=== PATIENT | female | born 1940 | race African-American/Black ===

== ENCOUNTER → 2017-02-11 | Outpatient (CLI) | payer MEDICARE ==
[2016-03-29 15:30] VITALS: BP 113/58
[~2017-02-11] MED LIST: Bisacodyl PO; Bisacodyl PR; CIPR500T94 PO; CYCL10TA2 PO; DOCU-109 PO; ERGO500027 PO; Fentanyl TD; HYDR-2758 PO; Hydrocodone/Acetaminophen PO; MAGN400O7 PO; MEDR2.5T28 PO; METH-37 PO; METR500T PO; ONDA4TAB10 PO; Oxycodone Hcl/Acetaminophen PO; PROC10TA57 PO; Polyethylene Glycol 3350 PO; [UNRECOGNIZED DRUG - CODE] PO
--- NOTE | 2017-02-11 17:12 | RAD ---
DATE: 02/11/2017 EXAM: DIGITAL SCREEN BILAT W/CAD HISTORY: Routine screening COMPARISON: 10/25/2013, 01/06/2016 This study was interpreted with the benefit of Computerized Aided Detection (CAD). The breast parenchyma is heterogeneously dense, which could reduce sensitivity of mammography. Breast parenchyma level C. FINDINGS: No new or enlarging breast densities are seen. There are scattered benign type calcifications in both breasts. There appears to be an old breast biopsy marker laterally in the right breast. No suspicious microcalcifications are seen. IMPRESSION: Stable mammograms without evidence of malignancy. BI-RADS CATEGORY: 2 BENIGN FINDING(S) RECOMMENDED FOLLOW-UP: 12M 12 MONTH FOLLOW-UP PQRS compliance statement: Patient information was entered into a reminder system with a target due date for the next mammogram. Mammography is a sensitive method for finding small breast cancers, but it does not detect them all and is not a substitute for careful clinical examination. A negative mammogram does not negate a clinically suspicious finding and should not result in delay in biopsying a clinically suspicious abnormality. "Our facility is accredited by the [employer] Mammography [employer]."
== END | disposition home or self-care (01) ==
LOC: MAMMO 13:16
PROVIDERS: ATTEND Obstetrics & Gynecology
DX: Z12.31 Encounter for screening mammogram for malignant neoplasm of breast (principal)
CPT/HCPCS: G0202; 77067

== ENCOUNTER → 2017-09-01 | Outpatient (CLI) | payer MEDICARE ==
[2017-09-01] MEDS: GADOBUTROL 7.5 MMOL/7.5 ML VIAL IV ×2 (12:30)
== END | disposition home or self-care (01) ==
LOC: MRI 10:47
DX: M48.061 Spinal stenosis, lumbar region without neurogenic claudication (principal); M51.36 Other intervertebral disc degeneration, lumbar region; G89.29 Other chronic pain; C90.00 Multiple myeloma not having achieved remission
CPT/HCPCS: 72158; A9585

== ENCOUNTER 2017-09-07 08:21 | Outpatient (CLI) | payer MEDICARE ==
[2017-09-07 08:44] LABS: ADD MAN DIFF? NO
[2017-09-07 08:53] LABS: BASO # 0.1 x10^3/uL (0.0-0.2); BASO % 1 % (0-3); EOS # 0.1 x10^3/uL (0.0-0.7); EOS % 2 % (0-3); HEMATOCRIT 38.9 % (36.0-47.0); HEMOGLOBIN 13.2 g/dL (12.0-15.5); LYMPH # 1.1 x10^3/uL (1.0-4.8); LYMPH % 20 % (24-48); MEAN CORPUSCULAR HEMOGLOBIN 33 pg (25-35); MEAN CORPUSCULAR HGB CONC 34 g/dL (31-37); MEAN CORPUSCULAR VOLUME 98 fL (79-100); MONO # 0.5 x10^3/uL (0.0-1.1); MONO % 10 % (0-9); NEUT # 3.6 x10^3uL (1.8-7.7); NEUT % 67 % (31-73); PLATELET COUNT 170 x10^3/uL (140-400); RED BLOOD COUNT 3.97 x10^6/uL (3.50-5.40); RED CELL DISTRIBUTION WIDTH 13.4 % (11.5-14.5); WHITE BLOOD COUNT 5.4 x10^3/uL (4.0-11.0)
[2017-09-07 09:03] LABS: PARTIAL THROMBOPLASTIN TIME 25 SEC (24-38); PROTHROMBIN TIME PATIENT 12.7 SEC (11.7-14.0)
[2017-09-07] MEDS ORDERED: LIDOCAINE 1%/EPI 1:100,000 20 ML VIAL. ×2 (09:18)
[2017-09-07] MEDS ORDERED: MIDAZOLAM HCL/PF 2 MG/2 ML VIAL. ×2 (09:45)
[2017-09-07] MEDS ORDERED: fentaNYL PF VIAL 100 MCG/2 ML VIAL ×2 (09:45)
[2017-09-07] MEDS ORDERED: IODIXANOL 320MG/ML 50ML VIAL. ×2 (10:08)
[2017-09-07] MEDS: IODIXANOL 320 MG/ML 100 ML VIAL. IART ×2 (10:15)
[2017-09-07] MEDS: fentaNYL PF VIAL 100 MCG/2 ML VIAL IV ×2 (10:23)
[2017-09-07] MEDS: LIDOCAINE 1%/EPI 1:100,000 20 ML VIAL. INJ ×2 (10:24)
[2017-09-07] MEDS: MIDAZOLAM HCL/PF 2 MG/2 ML VIAL. IV ×2 (10:24)
[2017-09-07] MEDS ORDERED: CONTRAST GIVEN MC ×2 (10:30)
[2017-09-07 10:52] LABS: % ATYL 1 % (0-0); % BANDS 7 % (0-9); % EOS 1 % (0-5); % MONOS 6 % (0-10); % SEGS 60 % (35-66); PLT ESTIMATE ADEQUATE (ADEQUATE)
[2017-09-07 11:01] LABS: % LYMPHS 25 % (24-48); OVALOCYTES FEW
== END 2017-09-07 13:00 | disposition home or self-care (01) ==
LOC: INTRAD 08:21
DX: C90.00 Multiple myeloma not having achieved remission (principal); F32.9 Major depressive disorder, single episode, unspecified; Z98.890 Other specified postprocedural states; Z79.01 Long term (current) use of anticoagulants; Z88.6 Allergy status to analgesic agent; Z79.82 Long term (current) use of aspirin
CPT/HCPCS: 36415; 36561; 76937; 77001; 85007; 85025; 85610; 85730; 99152; 99153; A4215; C1751; C1892; J0690; J1644; J2250; J3010; J3490

== ENCOUNTER 2018-01-08 11:04 | Emergency (ER) | payer MEDICARE ==
[2018-01-08 12:12] LABS: BILIRUBIN,URINE NEGATIVE (NEG); CLARITY,URINE CLEAR; COLOR,URINE YELLOW; GLUCOSE,URINE NEGATIVE (NEG); NITRITE,URINE NEGATIVE (NEG); PH,URINE 5.5; PROTEIN,URINE NEGATIVE (NEG-TRACE); UROBILINOGEN,URINE 0.2 mg/dL (0.2 mg/dL)
[2018-01-08] MEDS: IV NORMAL SALINE 1000ML BAG 1,000 ML IV (12:14)
[2018-01-08 12:19] LABS: ADD MAN DIFF? NO
[2018-01-08 12:25] LABS: BACTERIA,URINE 0 /HPF (0-FEW); RBC,URINE 0 /HPF (0-2); WBC,URINE 0 /HPF (0-4)
[2018-01-08 12:27] LABS: BASO % 1 % (0-3); EOS % 0 % (0-3); HEMATOCRIT 35.6 % (36.0-47.0); HEMOGLOBIN 12.1 g/dL (12.0-15.5); LYMPH # 0.7 x10^3/uL (1.0-4.8); LYMPH % 9 % (24-48); MEAN CORPUSCULAR HEMOGLOBIN 33 pg (25-35); MEAN CORPUSCULAR HGB CONC 34 g/dL (31-37); MEAN CORPUSCULAR VOLUME 97 fL (79-100); MONO % 12 % (0-9); NEUT # 6.6 x10^3uL (1.8-7.7); NEUT % 78 % (31-73); PLATELET COUNT 101 x10^3/uL (140-400); RED BLOOD COUNT 3.65 x10^6/uL (3.50-5.40); RED CELL DISTRIBUTION WIDTH 13.7 % (11.5-14.5); WHITE BLOOD COUNT 8.4 x10^3/uL (4.0-11.0)
[2018-01-08 12:34] LABS: ANION GAP 7 (6-14); BLOOD UREA NITROGEN 19 mg/dL (7-20); BUN/CREATININE RATIO 21 (6-20); CALCIUM 9.9 mg/dL (8.5-10.1); CARBON DIOXIDE 30 mmol/L (21-32); CHLORIDE 98 mmol/L (98-107); CREATININE 0.9 mg/dL (0.6-1.0); GFR 73.3; GLUCOSE 119 mg/dL (70-99); POTASSIUM 3.8 mmol/L (3.5-5.1); SODIUM 135 mmol/L (136-145)
[2018-01-08 12:40] LABS: ALBUMIN 3.3 g/dL (3.4-5.0); ALK PHOS 103 U/L (46-116); ALT (SGPT) 98 U/L (14-59); AST (SGOT) 53 U/L (15-37); TOTAL BILIRUBIN 0.4 mg/dL (0.2-1.0); TOTAL PROTEIN 6.5 g/dL (6.4-8.2)
[2018-01-08] MEDS ORDERED: HEPARIN PF 500 UNIT/5 ML DISP.SYRIN. IV (13:31)
== END 2018-01-08 13:44 | disposition home or self-care (01) ==
LOC: ER 11:04
DX: J40 Bronchitis, not specified as acute or chronic (principal); G89.29 Other chronic pain; Z88.5 Allergy status to narcotic agent; Z88.6 Allergy status to analgesic agent
CPT/HCPCS: 36415; 71046; 80053; 81001; 85025; 99285-25; J7030

== ENCOUNTER 2018-01-21 07:27 | Emergency (ER) | payer MEDICARE ==
[2018-01-21 08:09] LABS: ADD MAN DIFF? NO
[2018-01-21 08:12] LABS: BASO # 0.1 x10^3/uL (0.0-0.2); BASO % 1 % (0-3); EOS # 0.1 x10^3/uL (0.0-0.7); EOS % 3 % (0-3); HEMATOCRIT 34.6 % (36.0-47.0); LYMPH % 19 % (24-48); MEAN CORPUSCULAR HEMOGLOBIN 34 pg (25-35); MEAN CORPUSCULAR HGB CONC 35 g/dL (31-37); MEAN CORPUSCULAR VOLUME 96 fL (79-100); MONO # 0.6 x10^3/uL (0.0-1.1); MONO % 11 % (0-9); NEUT # 3.6 x10^3uL (1.8-7.7); NEUT % 67 % (31-73); PLATELET COUNT 198 x10^3/uL (140-400); RED BLOOD COUNT 3.59 x10^6/uL (3.50-5.40); RED CELL DISTRIBUTION WIDTH 14.6 % (11.5-14.5); WHITE BLOOD COUNT 5.4 x10^3/uL (4.0-11.0)
[2018-01-21] MEDS: fentaNYL PF VIAL 100 MCG/2 ML VIAL IM (08:19)
[2018-01-21 08:34] LABS: ANION GAP 6 (6-14); BLOOD UREA NITROGEN 11 mg/dL (7-20); BUN/CREATININE RATIO 12 (6-20); CALCIUM 9.4 mg/dL (8.5-10.1); CARBON DIOXIDE 30 mmol/L (21-32); CHLORIDE 104 mmol/L (98-107); CREATININE 0.9 mg/dL (0.6-1.0); GFR 73.3; GLUCOSE 117 mg/dL (70-99); POTASSIUM 3.6 mmol/L (3.5-5.1); SODIUM 140 mmol/L (136-145)
[2018-01-21 08:53] LABS: ALBUMIN 3.3 g/dL (3.4-5.0); ALBUMIN/GLOBULIN RATIO 1.1 (1.0-1.7); ALK PHOS 71 U/L (46-116); ALT (SGPT) 25 U/L (14-59); AST (SGOT) 21 U/L (15-37); MAGNESIUM 1.9 mg/dL (1.8-2.4); TOTAL BILIRUBIN 0.9 mg/dL (0.2-1.0); TOTAL PROTEIN 6.3 g/dL (6.4-8.2)
[2018-01-21 08:54] LABS: TROPONINI < 0.017 ng/mL (0.000-0.055)
== END 2018-01-21 09:47 | disposition home or self-care (01) ==
LOC: ER 07:27
DX: S43.401A Unspecified sprain of right shoulder joint, initial encounter (principal); C90.00 Multiple myeloma not having achieved remission; C88.9 Malignant immunoproliferative disease, unspecified; R03.0 Elevated blood-pressure reading, without diagnosis of hypertension; G89.29 Other chronic pain; Z88.6 Allergy status to analgesic agent; Z88.5 Allergy status to narcotic agent; X58.XXXA Exposure to other specified factors, initial encounter; Y93.89 Activity, other specified; Y92.89 Other specified places as the place of occurrence of the external cause; Y99.8 Other external cause status
CPT/HCPCS: 36415; 71045; 73030; 80053; 83735; 84484; 85025; 93005; 96372; 99285-25; J3010

== ENCOUNTER → 2018-03-21 | Outpatient (CLI) | payer MEDICARE ==
[2018-01-21 09:11] VITALS: BP 192/84
[~2018-03-21] MED LIST changes: +ACYC800T PO; +ALPR0.5T PO; +ASPI-482 PO; +AZIT250T PO; +CHOL4000 PO; +CYCL5TAB PO; +FENT1PAT89 TP; +GABA-585 PO; +HYDR-971 PO; +HYDR115S2 PO; +METH4TAB2 PO; +MULT1TAB52 PO; +POTA10TA12 PO
--- NOTE | 2018-03-22 09:21 | RAD ---
DATE: 03/21/2018 EXAM: MAMMO RUFINA SCREENING BILATERAL HISTORY: Routine screening COMPARISON: 02/11/2017 This study was interpreted with the benefit of Computerized Aided Detection (CAD). The breast parenchyma is heterogeneously dense, which could reduce sensitivity of mammography. Breast parenchyma level C. FINDINGS: 2-D and 3-D tomosynthesis imaging was performed in CC and MLO projections. An old breast biopsy marker is again noted laterally on the right. No new or enlarging breast densities are seen. There are scattered benign type calcifications. No suspicious microcalcifications have developed. IMPRESSION: Stable mammograms without evidence of malignancy. BI-RADS CATEGORY: 2 BENIGN FINDING(S) RECOMMENDED FOLLOW-UP: 12M 12 MONTH FOLLOW-UP PQRS compliance statement: Patient information was entered into a reminder system with a target due date for the next mammogram. Mammography is a sensitive method for finding small breast cancers, but it does not detect them all and is not a substitute for careful clinical examination. A negative mammogram does not negate a clinically suspicious finding and should not result in delay in biopsying a clinically suspicious abnormality. "Our facility is accredited by the [employer] Mammography Program."
== END | disposition home or self-care (01) ==
LOC: MAMMO 10:06
PROVIDERS: ATTEND Family Medicine
DX: Z12.31 Encounter for screening mammogram for malignant neoplasm of breast (principal); Z85.830 Personal history of malignant neoplasm of bone; Z90.49 Acquired absence of other specified parts of digestive tract; Z88.8 Allergy status to other drugs, medicaments and biological substances; Z88.5 Allergy status to narcotic agent; Z88.6 Allergy status to analgesic agent
CPT/HCPCS: 77063; 77067

== ENCOUNTER → 2018-04-15 | Outpatient (CLI) | payer MEDICARE ==
[2018-01-21 09:11] VITALS: BP 192/84
--- NOTE | 2018-04-15 15:26 | RAD ---
Metastatic skeletal survey, 04/15/2018: HISTORY: Multiple myeloma Multiple views of the bony skeleton were obtained with the following findings delineated: 1. A PA view of the chest demonstrates a Port-A-Cath extending to the level of the atrial caval junction. No fracture or destructive bony lesion is seen. The heart size is normal and the lungs are clear. 2. A lateral view of the skull reveals no lytic lesions. The sella turcica is at the upper limits of normal in size. 3. AP and lateral views of the cervical spine reveal moderate multilevel degenerative changes. No fracture or destructive bony lesion is seen. 4. AP and lateral views of the thoracic and lumbar spine demonstrate a mild thoracolumbar scoliosis. There is an old vertebral compression fracture at L1 with spurring and bony bridging anteriorly. This was also evident on old CT images from 03/29/2016. No additional fracture or destructive bony lesion is seen. 5. AP view of the pelvis reveals no fracture or destructive bony lesion. 6. AP views of both humeri and forearms reveal no fracture or destructive bony lesion. There are mild degenerative changes at the shoulders, more so on the right. 7. AP views of both femurs and lower legs reveal no fracture or destructive bony lesion. IMPRESSION: 1. Old L1 vertebral compression deformity. 2. Scattered degenerative changes in the spine. 3. No destructive bony lesions are identified. Electronically signed by: Marcelino Grady MD (04/15/2018 3:23 PM) [facility]
== END | disposition home or self-care (01) ==
LOC: RAD 08:54
PROVIDERS: ATTEND Internal Medicine Hematology & Oncology
DX: C90.00 Multiple myeloma not having achieved remission (principal); M43.8X6 Other specified deforming dorsopathies, lumbar region; M41.85 Other forms of scoliosis, thoracolumbar region; Z86.2 Personal history of diseases of the blood and blood-forming organs and certain disorders involving the immune mechanism; Z85.830 Personal history of malignant neoplasm of bone; Z90.49 Acquired absence of other specified parts of digestive tract; Z88.8 Allergy status to other drugs, medicaments and biological substances; Z88.5 Allergy status to narcotic agent; Z88.6 Allergy status to analgesic agent; Z82.49 Family history of ischemic heart disease and other diseases of the circulatory system
CPT/HCPCS: 77075

== ENCOUNTER 2018-04-16 13:49 | Emergency (ER) | payer MEDICARE ==
[~2018-04-16] VITALS: Ht 157.5 cm; Wt 81.2 kg
[2018-04-16] MEDS ORDERED: IV NORMAL SALINE 500ML BAG 500 ML IV SCH (14:00)
--- NOTE | 2018-04-16 14:08 | PHYS DOC ---
Past Medical History Past Medical History: Cancer Additional Past Medical Histor: chronic back pain, bone CA, multiple myloma Past Surgical History: Appendectomy, , Other Additional Past Surgical Histo: breast biopsy, rt chest port Additional Information: Nonsmoker Alcohol Use: None Drug Use: None Adult General Chief Complaint Chief Complaint: SYNCOPE HPI HPI Patient is a 77 year old female who brought in by EMS because of syncope. Patient states she was watching her grandson football game for 3 hours and felt hot and sweaty and walked up the hill to her son's car and felt dizzy and lightheadedness and then had a syncopal episode with loss of consciousness. EMS reported that she had about 3 minutes loss of consciousness without seizure activity and was alert and oriented at arrival of EMS. Patient complaining of feeling hot without chest pain, palpitation, focal neuro deficit, headache, nausea and vomiting. Review of Systems Review of Systems Constitutional: Denies fever or chills, reports generalized weakness Eyes: Denies change in visual acuity, redness, or eye pain [] HENT: Denies nasal congestion or sore throat [] Respiratory: Denies cough or shortness of breath [] Cardiovascular: No additional information not addressed in HPI [] GI: Denies abdominal pain, nausea, vomiting, bloody stools or diarrhea [] : Denies dysuria or hematuria [] Musculoskeletal: Denies back pain or joint pain [] Integument: Denies rash or skin lesions [] Neurologic: Denies headache, focal weakness or sensory changes [] Endocrine: Denies polyuria or polydipsia [] All other systems were reviewed and found to be within normal limits, except as documented in this note. Current Medications Current Medications Current Medications Medications (Trade) Dose Ordered Sig/Katrin Start Time Stop Time Status Last Admin Dose Admin Sodium Chloride 500 ml @ 500 mls/hr Q1H 04/16/18 14:00 04/16/18 14:59 DC 04/16/18 14:53 500 MLS/HR Allergies Allergies Allergies Coded Allergies Type Severity Reaction Last Updated Verified aspirin Allergy Intermediate 09/09/14 Yes codeine Allergy Intermediate 09/09/14 Yes Physical Exam Physical Exam Constitutional: Well developed, well nourished, mild distress, non-toxic appearance, blushing, temperature 98.2. [] HENT: Normocephalic, atraumatic, oropharynx dry, no oral exudates, nose normal. [] Eyes: PERRLA, EOMI, conjunctiva normal, no discharge. [] Neck: Normal range of motion, no tenderness, supple, no stridor. [] Cardiovascular:Heart rate regular rhythm, no murmur [] Lungs & Thorax: Bilateral breath sounds clear to auscultation [] Abdomen: Bowel sounds normal, soft, no tenderness, no masses, no pulsatile masses. [] Skin: Warm, dry, no erythema, no rash. [] Back: No tenderness, no CVA tenderness. [] Extremities: No tenderness, no cyanosis, no clubbing, ROM intact, no edema. [] Neurologic: Alert and oriented X 3, normal motor function, normal sensory function, no focal deficits noted. [] Psychologic: Affect normal, judgement normal, mood normal. [] Current Patient Data Vital Signs Vital Signs Date Time Temp Pulse Resp B/P (MAP) Pulse Ox O2 Delivery O2 Flow Rate FiO2 04/16/18 13:49 97.6 72 18 136/73 (94) 94 Room Air 97.6 Lab Values Laboratory Tests Test 04/16/18 14:50 White Blood Count 5.2 x10^3/uL (4.0-11.0) Red Blood Count 3.65 x10^6/uL (3.50-5.40) Hemoglobin 12.4 g/dL (12.0-15.5) Hematocrit 36.2 % (36.0-47.0) Mean Corpuscular Volume 99 fL (79-100) Mean Corpuscular Hemoglobin 34 pg (25-35) Mean Corpuscular Hemoglobin Concent 34 g/dL (31-37) Red Cell Distribution Width 14.1 % (11.5-14.5) Platelet Count 184 x10^3/uL (140-400) Neutrophils (%) (Auto) 70 % (31-73) Lymphocytes (%) (Auto) 16 % (24-48) L Monocytes (%) (Auto) 12 % (0-9) H Eosinophils (%) (Auto) 2 % (0-3) Basophils (%) (Auto) 1 % (0-3) Neutrophils # (Auto) 3.7 x10^3uL (1.8-7.7) Lymphocytes # (Auto) 0.8 x10^3/uL (1.0-4.8) L Monocytes # (Auto) 0.6 x10^3/uL (0.0-1.1) Eosinophils # (Auto) 0.1 x10^3/uL (0.0-0.7) Basophils # (Auto) 0.0 x10^3/uL (0.0-0.2) Platelet Estimate Pending Sodium Level 144 mmol/L (136-145) Potassium Level 4.0 mmol/L (3.5-5.1) Chloride Level 106 mmol/L (98-107) Carbon Dioxide Level 29 mmol/L (21-32) Anion Gap 9 (6-14) Blood Urea Nitrogen 11 mg/dL (7-20) Creatinine 1.1 mg/dL (0.6-1.0) H Estimated GFR (Cockcroft-Gault) 58.1 BUN/Creatinine Ratio 10 (6-20) Glucose Level 97 mg/dL (70-99) Calcium Level 9.4 mg/dL (8.5-10.1) Magnesium Level 2.3 mg/dL (1.8-2.4) Total Bilirubin 0.7 mg/dL (0.2-1.0) Aspartate Amino Transferase (AST) 24 U/L (15-37) Alanine Aminotransferase (ALT) 23 U/L (14-59) Alkaline Phosphatase 81 U/L (46-116) Creatine Kinase 34 U/L (26-192) Troponin I Quantitative < 0.017 ng/mL (0.000-0.055) Total Protein 6.2 g/dL (6.4-8.2) L Albumin 3.6 g/dL (3.4-5.0) Albumin/Globulin Ratio 1.4 (1.0-1.7) Laboratory Tests 04/16/18 14:50 Laboratory Tests 04/16/18 14:50 EKG EKG Present by me. EKG at 1413 showed normal sinus rhythm at rate of 74, leftward axis, no acute ST and T-wave abnormalities] Radiology/Procedures Radiology/Procedures [facility] [address] [place], [place] [id number] IMAGING REPORT Signed PATIENT: JUAN F GOLD ACCOUNT: [id number] : 1940 LOCATION: ER AGE: 77 SEX: F EXAM STATUS: PRE ER ORD. PHYSICIAN: RAGHAV SANTOYO MD REASON: syncope PROCEDURE: PORTABLE CHEST 1V Portable chest, 04/16/2018: HISTORY: Syncope Comparison is made to a study from 01/21/2018. A right Port-A-Cath extends into the superior vena cava. The heart size and pulmonary vascularity are normal. There is calcific plaquing of the aorta. No pulmonary infiltrate is seen. There is no evidence of pleural fluid. IMPRESSION: No acute cardiopulmonary abnormality is detected. CT of the head without contrast, 04/16/2018: HISTORY: Syncope There is mild cerebral atrophy. The ventricles are within normal limits in size. There is no shift of midline structures. There is no evidence of acute intracranial hemorrhage or mass effect. IMPRESSION: No acute intracranial abnormality is detected. Electronically signed by: Marcelino Grady MD (04/16/2018 2:38 PM) [facility] DICTATED and SIGNED BY: MARCELINO GRADY MD DATE: 04/16/18 1436 [facility] [address] [place] [address] IMAGING REPORT Signed PATIENT: JUAN F GOLD ACCOUNT: [id number] : 1940 LOCATION: ER AGE: 77 SEX: F EXAM STATUS: PRE ER ORD. PHYSICIAN: RAGHAV SANTOYO MD REASON: syncope PROCEDURE: CT HEAD WO CONTRAST Portable chest, 04/16/2018: HISTORY: Syncope Comparison is made to a study from 01/21/2018. A right Port-A-Cath extends into the superior vena cava. The heart size and pulmonary vascularity are normal. There is calcific plaquing of the aorta. No pulmonary infiltrate is seen. There is no evidence of pleural fluid. IMPRESSION: No acute cardiopulmonary abnormality is detected. CT of the head without contrast, 04/16/2018: HISTORY: Syncope There is mild cerebral atrophy. The ventricles are within normal limits in size. There is no shift of midline structures. There is no evidence of acute intracranial hemorrhage or mass effect. IMPRESSION: No acute intracranial abnormality is detected. Electronically signed by: Marcelino Grady MD (04/16/2018 2:38 PM) [facility] DICTATED and SIGNED BY: MARCELINO GRADY MD DATE: 04/16/18 1546 Course & Med Decision Making Course & Med Decision Making Pertinent Labs and Imaging studies reviewed. (See chart for details) Evaluation of patient in ER showed 77-year-old female patient with a syncopal episode after he takes pressure. Patient had unremarkable physical exam, CT head , labs and EKG. The patient tolerated oral intake and ambulated without problem. Plan discharge patient home with diagnose of syncope related to heat exposure. Patient was instructed to increase fluid intake and follow up with her primary care physician. Dragon Disclaimer Dragon Disclaimer This electronic medical record was generated, in whole or in part, using a voice recognition dictation system. Departure Departure Impression: Primary Impression: Heat exposure Additional Impression: Syncope Disposition: 01 HOME, SELF-CARE (at 1526) Referrals: ANTOINE JOHNSON MD (PCP) Patient Instructions: Heat Stress in the Elderly, Syncope Additional Instructions: Drink plenty of liquids Follow-up with your primary care physician in 3-5 days Return to ER if not getting better Problem Qualifiers RAGHAV SANTOYO MD Apr 16, 2018 14:08
--- NOTE | 2018-04-16 14:42 | RAD ---
Portable chest, 04/16/2018: HISTORY: Syncope Comparison is made to a study from 01/21/2018. A right Port-A-Cath extends into the superior vena cava. The heart size and pulmonary vascularity are normal. There is calcific plaquing of the aorta. No pulmonary infiltrate is seen. There is no evidence of pleural fluid. IMPRESSION: No acute cardiopulmonary abnormality is detected. CT of the head without contrast, 04/16/2018: HISTORY: Syncope There is mild cerebral atrophy. The ventricles are within normal limits in size. There is no shift of midline structures. There is no evidence of acute intracranial hemorrhage or mass effect. IMPRESSION: No acute intracranial abnormality is detected. Electronically signed by: Marcelino Grady MD (04/16/2018 2:38 PM) [facility]
[2018-04-16 15:05] LABS: BASO % 1 % (0-3); EOS # 0.1 x10^3/uL (0.0-0.7); EOS % 2 % (0-3); HEMATOCRIT 36.2 % (36.0-47.0); HEMOGLOBIN 12.4 g/dL (12.0-15.5); LYMPH # 0.8 x10^3/uL (1.0-4.8); LYMPH % 16 % (24-48); MEAN CORPUSCULAR HEMOGLOBIN 34 pg (25-35); MEAN CORPUSCULAR HGB CONC 34 g/dL (31-37); MEAN CORPUSCULAR VOLUME 99 fL (79-100); MONO # 0.6 x10^3/uL (0.0-1.1); MONO % 12 % (0-9); NEUT # 3.7 x10^3uL (1.8-7.7); NEUT % 70 % (31-73); PLATELET COUNT 184 x10^3/uL (140-400); RED BLOOD COUNT 3.65 x10^6/uL (3.50-5.40); RED CELL DISTRIBUTION WIDTH 14.1 % (11.5-14.5); WHITE BLOOD COUNT 5.2 x10^3/uL (4.0-11.0)
[2018-04-16 15:12] LABS: CALCIUM 9.4 mg/dL (8.5-10.1); CREATININE 1.1 mg/dL (0.6-1.0); GFR 58.1
[2018-04-16 15:19] LABS: ALBUMIN 3.6 g/dL (3.4-5.0); ALBUMIN/GLOBULIN RATIO 1.4 (1.0-1.7); MAGNESIUM 2.3 mg/dL (1.8-2.4); TOTAL BILIRUBIN 0.7 mg/dL (0.2-1.0); TOTAL PROTEIN 6.2 g/dL (6.4-8.2)
[2018-04-16 16:00] VITALS: BP 144/77
[2018-04-16 16:13] LABS: % BANDS 1 % (0-9); % EOS 1 % (0-5); % LYMPHS 19 % (24-48); % MONOS 14 % (0-10); % SEGS 65 % (35-66); PLT ESTIMATE ADEQUATE (ADEQUATE)
--- NOTE | 2018-04-16 16:16 | EKG ---
[facility] [address] [place] [address] Test Date: 2018-04-16 Test Time: 14:13:26 Pat Name: JUAN F GOLD Department: Room: Gender: F [employer]: : 1940 Requested By: RAGHAV SANTOYO Order Number: [id number] Reading MD: Nirav Ware Measurements Intervals [place] Rate: 74 P: 49 [place]: 162 QRS: 0 QRSD: 78 T: 20 QT: 368 QTc: 413 Interpretive Statements SINUS RHYTHM LEFTWARD AXIS Electronically Signed On 04-18-2018 11:16:36 CDT by Nirav Ware
== END 2018-04-16 16:07 | disposition home or self-care (01) ==
LOC: ER 13:49
DX: R55 Syncope and collapse (principal); Z88.5 Allergy status to narcotic agent; Z88.6 Allergy status to analgesic agent; X30.XXXA Exposure to excessive natural heat, initial encounter; Y93.61 Activity, american tackle football; Y92.89 Other specified places as the place of occurrence of the external cause; Y99.8 Other external cause status
CPT/HCPCS: 36415; 70450; 71045; 80053; 82550; 83735; 84484; 85007; 85025; 93005; 96360; 99285; J7040

== ENCOUNTER → 2018-08-30 | Outpatient (CLI) | payer MEDICARE ==
[~2018-08-30] MED LIST changes: +AMOX1TAB11 PO; -CHOL4000 PO; +CHOL40003 PO; +DOXY100T PO; +FENT1PAT90 TD; +GADOBUTROL 7.5 MMOL/7.5 ML VIAL IV ONE; -HYDR-2758 PO; +HYDR-2761 PO; +HYDR-3164 PO; -HYDR-971 PO; +MONT10TA49 PO; +OSEL30CA PO; +SULF1TAB24 PO; +daratumumab IV
--- NOTE | 2018-08-30 13:20 | RAD ---
EXAM: MRI right shoulder With and without IV contrast DATE: 08/30/2018 10:30 AM COMPARISON: None INDICATION: RIGHT SHOULDER PAIN X 2 MONTHS, NKI, HISTORY OF MULTIPLE MYELOMA TECHNIQUE: Multiplanar, multisequence MRI of the right shoulder was performed before and after the administration of IV contrast. FINDINGS: Region of air replacement within the proximal right humeral shaft measures approximately 8.1 cm in length with associated T2/STIR hyperintense signal suspicious for myelomatous infiltration. No definite marrow edema/replacement within the scapula or distal clavicle. Subacromial mild AC joint degenerative change. Bilateral downsloping of the distal acromion. Type III acromion. No os acromiale. Subacromial subdeltoid bursal distention likely bursitis. No glenohumeral joint effusion. Partial-thickness regular sided tear of the distal supraspinatus tendon approximately 1 cm from the attachment involving approximately 30% tendon thickness, measuring about 8 mm in AP dimension. This is in a background of moderate to significant infraspinatus increased signal, tendinosis. Evaluation for labral tear limited on this arthrographic study. Intra-articular long head biceps tendon is seen within the bicipital groove. Intra-articular long head biceps tendon is grossly normal in signal and morphology. No evidence for fracture or AVN. No definite full-thickness cartilage defect is identified on this survey evaluation. IMPRESSION: 1. T2/STIR and T1 marrow signal changes within the proximal right humerus suspicious for myelomatous infiltration. 2. Partial-thickness reticular sided tear of the distal supraspinatus approximately 1 cm from the attachment measuring approximately 8 mm in AP dimension. 3. Subacromial-subdeltoid bursal edema with enhancement, bursitis. 4. Mild AC joint degenerative changes are seen. No definite myelomatous involvement of the scapula, distal right clavicle or acromion. Electronically signed by: Shad Talley MD (08/30/2018 1:15 PM) [id number]
== END | disposition home or self-care (01) ==
LOC: EDBD → MRI 08-29 09:42
PROVIDERS: ATTEND Internal Medicine Hematology & Oncology
DX: M75.101 Unspecified rotator cuff tear or rupture of right shoulder, not specified as traumatic (principal); M19.011 Primary osteoarthritis, right shoulder; M75.51 Bursitis of right shoulder; R60.0 Localized edema; Z85.830 Personal history of malignant neoplasm of bone
CPT/HCPCS: 73223; A9585

== ENCOUNTER → 2018-09-05 | Outpatient (CLI) | payer MEDICARE ==
[~2018-09-05] MED LIST changes: -AMOX1TAB11 PO; -DOXY100T PO; -FENT1PAT90 TD; -GADOBUTROL 7.5 MMOL/7.5 ML VIAL IV ONE; -MONT10TA49 PO; -OSEL30CA PO; -SULF1TAB24 PO; -daratumumab IV
--- NOTE | 2018-09-05 14:22 | RAD ---
Examination: 2 views of the right shoulder HISTORY: History of chronic right shoulder pain COMPARISON: 01/21/2018 FINDINGS: The humerus head is within the glenoid. Mild degenerative changes identified in the acromioclavicular joint and the glenohumeral joint. Right-sided Port-A-Cath is identified. IMPRESSION: Mild degenerative changes acromioclavicular joint and the glenohumeral joint. Electronically signed by: Denny Solano MD (09/05/2018 2:17 PM) [place] [id number]
== END | disposition home or self-care (01) ==
LOC: RAD 11:51
PROVIDERS: ATTEND Internal Medicine Hematology & Oncology
DX: C90.00 Multiple myeloma not having achieved remission (principal); M19.011 Primary osteoarthritis, right shoulder; G89.29 Other chronic pain
CPT/HCPCS: 73030

== ENCOUNTER 2018-10-23 14:15 | Inpatient (IN) | payer MEDICARE ==
[~2018-10-23] VITALS: Ht 157.5 cm; Wt 80.7 kg
[2018-10-23 14:48] LABS: BILIRUBIN,URINE NEGATIVE (NEG); CLARITY,URINE CLEAR; COLOR,URINE YELLOW; NITRITE,URINE NEGATIVE (NEG); PROTEIN,URINE NEGATIVE (NEG-TRACE); UROBILINOGEN,URINE 0.2 mg/dL (0.2 mg/dL)
[2018-10-23 14:58] LABS: BASO % 0 % (0-3); EOS % 0 % (0-3); HEMATOCRIT 37.2 % (36.0-47.0); HEMOGLOBIN 12.4 g/dL (12.0-15.5); LYMPH # 0.5 x10^3/uL (1.0-4.8); LYMPH % 7 % (24-48); MEAN CORPUSCULAR HEMOGLOBIN 32 pg (25-35); MEAN CORPUSCULAR HGB CONC 33 g/dL (31-37); MEAN CORPUSCULAR VOLUME 96 fL (79-100); MONO # 0.8 x10^3/uL (0.0-1.1); MONO % 13 % (0-9); NEUT # 4.9 x10^3uL (1.8-7.7); NEUT % 79 % (31-73); PLATELET COUNT 205 x10^3/uL (140-400); RED BLOOD COUNT 3.87 x10^6/uL (3.50-5.40); RED CELL DISTRIBUTION WIDTH 13.7 % (11.5-14.5); WHITE BLOOD COUNT 6.2 x10^3/uL (4.0-11.0)
[2018-10-23 15:00] LABS: AMORPHOUS SEDIMENT,UR PRESENT /HPF; BACTERIA,URINE 0 /HPF (0-FEW); RBC,URINE 0 /HPF (0-2); SQUAMOUS EPITHELIAL CELL,UR FEW /LPF; WBC,URINE RARE /HPF (0-4)
--- NOTE | 2018-10-23 15:07 | RAD ---
CHEST AP ONLY Clinical Indication: COUGH Comparison: 04/16/2018 portable chest x-ray exam. Findings: Right central venous infusion port is present. The cardiomediastinal silhouette is normal. Small subtle opacity at the right lateral upper lung field level is questioned this is just lateral to the central venous catheter at the clavicular level. There is no pneumothorax. No pleural effusion is appreciated. No acute bone abnormality. IMPRESSION: Opacity involving the right lateral upper lung field level. This is new compared to prior exam and possibly of infiltrate is questioned. Interval follow-up two-view chest x-ray exam to assess resolution is recommended. Electronically signed by: Edwin Rod MD (10/23/2018 3:05 PM) [facility]
--- NOTE | 2018-10-23 15:07 | PHYS DOC ---
Past Medical History Past Medical History: Cancer Additional Past Medical Histor: chronic back pain, bone CA, multiple myloma Past Surgical History: Appendectomy, , Other Additional Past Surgical Histo: breast biopsy, rt chest port Alcohol Use: None Drug Use: None Adult General Chief Complaint Chief Complaint: COUGH HPI HPI 77-year-old female presenting the emergency room today with cough congestion and nausea. Her nausea started yesterday. She took 8 mg of Zofran twice earlier today which mildly improved his symptoms. Her cough has been nonproductive. She takes chemotherapy once a month for multiple myeloma. She denies having any fevers. She took her temperature earlier this afternoon which was 99F. Review of systems is negative for chest pain shortness breath abdominal pain. Positive for nausea without vomiting. All other review of systems is negative unless otherwise noted in history of present illness. ED course: 77-year-old female presenting to the emergency department today with nausea and cough with congestion. Chest x-ray shows probable pneumonia. Otherwise white blood cell count within normal limits. Chemistry panel is unremarkable. Urinalysis is not suggestive of infection. Well give IV abx and admit. Review of Systems Review of Systems SEE ABOVE. Current Medications Current Medications Current Medications Medications (Trade) Dose Ordered Sig/Katrin Start Time Stop Time Status Last Admin Dose Admin Metoclopramide HCl (Reglan Vial) 10 mg 1X ONCE 10/23/18 15:15 10/23/18 15:16 DC 10/23/18 15:42 10 MG Sodium Chloride 1,000 ml @ 1,000 mls/hr 1X ONCE 10/23/18 15:15 10/23/18 16:14 10/23/18 15:42 1,000 MLS/HR Allergies Allergies Allergies Coded Allergies Type Severity Reaction Last Updated Verified aspirin Allergy Intermediate 09/09/14 Yes codeine Allergy Intermediate 09/09/14 Yes Physical Exam Physical Exam SEE ABOVE Constitutional: Well developed, well nourished, no acute distress, non-toxic appearance. [] HENT: Normocephalic, atraumatic, bilateral external ears normal, oropharynx moist, no oral exudates, nose normal. [] Eyes: PERRLA, EOMI, conjunctiva normal, no discharge. [] Neck: Normal range of motion, no tenderness, supple, no stridor. [] Cardiovascular:Heart rate regular rhythm, no murmur [] Lungs & Thorax: Coarse lung sounds on the left more than the right. Abdomen: Bowel sounds normal, soft, no tenderness, no masses, no pulsatile masses. [] Skin: Warm, dry, no erythema, no rash. [] Back: No tenderness, no CVA tenderness. [] Extremities: No tenderness, no cyanosis, no clubbing, ROM intact, no edema. [] Neurologic: Alert and oriented X 3, normal motor function, normal sensory function, no focal deficits noted. [] Psychologic: Affect normal, judgement normal, mood normal. [] Current Patient Data Vital Signs Vital Signs Date Time Temp Pulse Resp B/P (MAP) Pulse Ox O2 Delivery O2 Flow Rate FiO2 10/23/18 15:42 68 22 160/71 (100) 95 Nasal Cannula 2.0 10/23/18 14:20 99.0 99.0 Lab Values Laboratory Tests Test 10/23/18 14:20 10/23/18 14:47 10/23/18 15:10 Urine Collection Type Unknown Urine Color Yellow Urine Clarity Clear Urine pH 7.0 Urine Specific [place] 1.020 Urine Protein Negative mg/dL (NEG-TRACE) Urine Glucose (UA) Negative mg/dL (NEG) Urine Ketones (Stick) Trace mg/dL (NEG) Urine Blood Negative (NEG) Urine Nitrite Negative (NEG) Urine Bilirubin Negative (NEG) Urine Urobilinogen Dipstick 0.2 mg/dL (0.2 mg/dL) Urine Leukocyte Esterase Negative (NEG) Urine RBC 0 /HPF (0-2) Urine WBC Rare /HPF (0-4) Urine Squamous Epithelial Cells Few /LPF Urine Amorphous Sediment Present /HPF Urine Bacteria 0 /HPF (0-FEW) White Blood Count 6.2 x10^3/uL (4.0-11.0) Red Blood Count 3.87 x10^6/uL (3.50-5.40) Hemoglobin 12.4 g/dL (12.0-15.5) Hematocrit 37.2 % (36.0-47.0) Mean Corpuscular Volume 96 fL (79-100) Mean Corpuscular Hemoglobin 32 pg (25-35) Mean Corpuscular Hemoglobin Concent 33 g/dL (31-37) Red Cell Distribution Width 13.7 % (11.5-14.5) Platelet Count 205 x10^3/uL (140-400) Neutrophils (%) (Auto) 79 % (31-73) H Lymphocytes (%) (Auto) 7 % (24-48) L Monocytes (%) (Auto) 13 % (0-9) H Eosinophils (%) (Auto) 0 % (0-3) Basophils (%) (Auto) 0 % (0-3) Neutrophils # (Auto) 4.9 x10^3uL (1.8-7.7) Lymphocytes # (Auto) 0.5 x10^3/uL (1.0-4.8) L Monocytes # (Auto) 0.8 x10^3/uL (0.0-1.1) Eosinophils # (Auto) 0.0 x10^3/uL (0.0-0.7) Basophils # (Auto) 0.0 x10^3/uL (0.0-0.2) Sodium Level 134 mmol/L (136-145) L Potassium Level 3.7 mmol/L (3.5-5.1) Chloride Level 96 mmol/L (98-107) L Carbon Dioxide Level 29 mmol/L (21-32) Anion Gap 9 (6-14) Blood Urea Nitrogen 10 mg/dL (7-20) Creatinine 0.9 mg/dL (0.6-1.0) Estimated GFR (Cockcroft-Gault) 73.3 BUN/Creatinine Ratio 11 (6-20) Glucose Level 114 mg/dL (70-99) H Calcium Level 9.0 mg/dL (8.5-10.1) Total Bilirubin 0.6 mg/dL (0.2-1.0) Aspartate Amino Transferase (AST) 20 U/L (15-37) Alanine Aminotransferase (ALT) 21 U/L (14-59) Alkaline Phosphatase 88 U/L (46-116) Total Protein 7.1 g/dL (6.4-8.2) Albumin 3.2 g/dL (3.4-5.0) L Albumin/Globulin Ratio 0.8 (1.0-1.7) L Laboratory Tests 10/23/18 14:47 Laboratory Tests 10/23/18 15:10 EKG EKG [] Radiology/Procedures Radiology/Procedures [] Course & Med Decision Making Course & Med Decision Making Pertinent Labs and Imaging studies reviewed. (See chart for details) [] Dragon Disclaimer Dragon Disclaimer This electronic medical record was generated, in whole or in part, using a voice recognition dictation system. Departure Departure Impression: Primary Impression: Cough Additional Impression: PNA (pneumonia) Disposition: ADMITTED INPATIENT Condition: STABLE Referrals: ANTOINE JOHNSON MD (PCP) Problem Qualifiers MARIO CONTE MD Oct 23, 2018 15:07
[2018-10-23] MEDS ORDERED: METOCLOPRAMIDE HCL 10 MG/2 ML VIAL. IV ONE (15:15)
[2018-10-23] MEDS ORDERED: IV NORMAL SALINE 1000ML BAG 1,000 ML IV ONE ×2 (15:15→20:30)
[2018-10-23 15:26] LABS: CREATININE 0.9 mg/dL (0.6-1.0); GFR 73.3; POTASSIUM 3.7 mmol/L (3.5-5.1)
[2018-10-23 15:32] LABS: ALBUMIN 3.2 g/dL (3.4-5.0); ALBUMIN/GLOBULIN RATIO 0.8 (1.0-1.7); TOTAL BILIRUBIN 0.6 mg/dL (0.2-1.0); TOTAL PROTEIN 7.1 g/dL (6.4-8.2)
[2018-10-23] MEDS ORDERED: IV NORMAL SALINE 1000ML BAG 1,000 ML IV SCH (15:58)
[2018-10-23] MEDS ORDERED: cefTRIAXone IV Push 1 GM VIAL. IVP ONE (16:00)
[2018-10-23] MEDS ORDERED: AZITHRMYCN 500MG IVPB FOR OMNI 250 ML IV ONE ×2 (16:00→20:30)
[2018-10-23] MEDS ORDERED: MORPHINE SULFATE 2 MG/ML VIAL. IV PRN (16:00)
[2018-10-23] MEDS ORDERED: ONDANSETRON PF 4 MG/2 ML VIAL. IV PRN (16:00)
[2018-10-23 16:31] LABS: INFLUENZA A PATIENT POSITIVE (NEGATIVE); INFLUENZA B PATIENT NEGATIVE (NEGATIVE)
[2018-10-23] MEDS ORDERED: OSELTAMIVIR 75 MG CAPSULE PO ONE (16:45)
--- NOTE | 2018-10-23 17:12 | PDOC1 ---
History and Physical Date of Admission Date of Admission DATE: 10/23/18 TIME: 17:10 Identification/Chief Complaint Chief Complaint SEEN IN ER emergency room with cough congestion and nausea. Her nausea started yesterday. She took 8 mg of Zofran twice earlier today which mildly improved symptoms. Her cough has been nonproductive. She takes chemotherapy once a month for multiple myeloma. She denies having any fevers. She took her temperature earlier this afternoon which was 99F FLU POS SCREEN IN ER Past Medical History Past Medical History Past Medical History Past Medical History: Cancer //multiple myeloma Additional Past Medical Histor: chronic back pain, bone CA, multiple myloma Past Surgical History: Appendectomy, , Other Additional Past Surgical Histo: breast biopsy, rt chest port Alcohol Use: None Drug Use: None nonsmoker no etoh use family hx HTN Cardiovascular: No pertinent hx Pulmonary: No pertinent hx GI: No pertinent hx Heme/Onc: Other (multiple myeloma) Hepatobiliary: No pertinent hx Psych: No pertinent hx Musculoskeletal: low back pain Rheumatologic: No pertinent hx Infectious disease: No pertinent hx Renal/: No pertinent hx Endocrine: No pertinent hx Dermatology: No pertinent hx Past Surgical History Past Surgical History: No pertinent history Family History Family History: No Significant, Hypertension Social History Smoke: No ALCOHOL: none Drugs: None Current Problem List Problem List Problems Medical Problems: (1) Cough Status: Acute (2) PNA (pneumonia) Status: Acute Current Medications Current Medications Current Medications Metoclopramide HCl (Reglan Vial) 10 mg 1X ONCE IV Last administered on at 15:42; Start 10/23/18 at 15:15; Stop 10/23/18 at 15:16; Status DC Sodium Chloride 1,000 ml @ 1,000 mls/hr 1X ONCE IV Last administered on at 15:42; Start 10/23/18 at 15:15; Stop 10/23/18 at 16:14; Status DC Ondansetron HCl (Zofran) 4 mg PRN Q8HRS PRN IV NAUSEA/VOMITING; Start 10/23/18 at 16:00; Stop 10/24/18 at 15:59 Morphine Sulfate (Morphine Sulfate) 2 mg PRN Q2HR PRN IV PAIN; Start 10/23/18 at 16:00; Stop 10/24/18 at 15:59 Sodium Chloride 1,000 ml @ 100 mls/hr Q10H IV ; Start 10/23/18 at 15:58; Stop 10/23/18 at 19:57 Azithromycin 250 ml @ 250 mls/hr 1X ONCE IV Last administered on 10/23/18at 16 :00; Start 10/23/18 at 16:00; Stop 10/23/18 at 16:59; Status DC Ceftriaxone Sodium (Rocephin) 1 gm 1X ONCE IVP Last administered on 10/23/18at 16:17; Start 10/23/18 at 16:00; Stop 10/23/18 at 16:08; Status DC Oseltamivir Phosphate (Tamiflu) 75 mg 1X ONCE PO Last administered on at 16:58; Start 10/23/18 at 16:45; Stop 10/23/18 at 16:46; Status DC Active Scripts Active Medrol (Methylprednisolone) 4 Mg Tab.ds.pk 1 Pkg PO UD Cyclobenzaprine Hcl 5 Mg Tablet 1 Tab PO TID Zithromax (Azithromycin) 250 Mg Tablet 1 Pkg PO UD Tussionex Pennkinetic Susp (Hydrocodone/Chlorphen P-Stirex) 115 Ml Julianne.er.12h 5 Ml PO BID PRN Compazine (Prochlorperazine Maleate) 10 Mg Tablet 10 Mg PO PRN Q6HRS PRN Zofran Odt (Ondansetron) 4 Mg Tab.rapdis 8 Mg PO TIDAC Reported Potassium Chloride 10 Meq Tab.sr.24h 10 Meq PO DAILY Multivitamins (Multivitamin) 1 Each Tablet 1 Tab PO DAILY Baldwin 5-325 Tablet (Acetaminophen/Hydrocodone Bitart) 1 Each Tablet 1 Tab PO PRN Q4HRS PRN Gabapentin 100 Mg Capsule 100 Mg PO TID DURAGESIC 12mcg/hr (Fentanyl) 1 Each Patch.td72 1 Patch TP Q3DAYS Colace (Docusate Sodium) 100 Mg Capsule 1 Cap PO DAILY Aspir 81 (Aspirin) 81 Mg Tablet.dr 1 Tab PO DAILY Xanax (Alprazolam) 0.5 Mg Tablet 0.5 Mg PO PRN Q6HRS PRN Acyclovir 800 Mg Tablet 1 Tab PO BID Vitamin D3 (Cholecalciferol (Vitamin D3)) 4,000 Unit Capsule 4,000 Unit PO DAILY Allergies Allergies: Coded Allergies: aspirin (Verified Allergy, Intermediate, 09/09/14) codeine (Verified Allergy, Intermediate, 09/09/14) Physical Exam Physical Exam Physical Exam Physical Exam Constitutional: Well developed, well nourished, MILD acute distress, non-toxic appearance. [] HENT: Normocephalic, atraumatic, bilateral external ears normal, oropharynx moist, no oral exudates, nose normal. [] Eyes: PERRLA, EOMI, conjunctiva normal, no discharge. [] Neck: Normal range of motion, no tenderness, supple, no stridor. [] Cardiovascular:Heart rate regular rhythm, no murmur [] Lungs & Thorax: Coarse lung sounds on the left more than the right. Abdomen: Bowel sounds normal, soft, no tenderness, no masses, no pulsatile masses. [] Skin: Warm, dry, no erythema, no rash. [] Back: No tenderness, no CVA tenderness. [] Extremities: No tenderness, no cyanosis, no clubbing, ROM intact, no edema. [] Neurologic: Alert and oriented X 3, normal motor function, normal sensory function, no focal deficits noted. [] Psychologic: Affect normal, judgement normal, mood normal. [] General: Alert, Oriented X3, Cooperative, mild distress HEENT: Atraumatic, EOMI Heart: S1S2, RRR Breasts: Not examined Abdomen: Normal bowel sounds, Soft Rectal Exam: not examined Extremities: No clubbing, No cyanosis, No edema Skin: No significant lesion Neuro: Normal speech, Cranial nerves 3-12 NL Psych/Mental Status: Mental status NL, Mood NL Vitals Vitals Vital Signs Date Time Temp Pulse Resp B/P (MAP) Pulse Ox O2 Delivery O2 Flow Rate FiO2 10/23/18 15:42 68 22 160/71 (100) 95 Nasal Cannula 2.0 10/23/18 14:20 99.0 99.0 Labs Labs Laboratory Tests Test 10/23/18 14:20 10/23/18 14:47 10/23/18 15:10 10/23/18 15:58 Urine Collection Type Unknown Urine Color Yellow Urine Clarity Clear Urine pH 7.0 Urine Specific [place] 1.020 Urine Protein Negative mg/dL (NEG-TRACE) Urine Glucose (UA) Negative mg/dL (NEG) Urine Ketones (Stick) Trace mg/dL (NEG) Urine Blood Negative (NEG) Urine Nitrite Negative (NEG) Urine Bilirubin Negative (NEG) Urine Urobilinogen Dipstick 0.2 mg/dL (0.2 mg/dL) Urine Leukocyte Esterase Negative (NEG) Urine RBC 0 /HPF (0-2) Urine WBC Rare /HPF (0-4) Urine Squamous Epithelial Cells Few /LPF Urine Amorphous Sediment Present /HPF Urine Bacteria 0 /HPF (0-FEW) White Blood Count 6.2 x10^3/uL (4.0-11.0) Red Blood Count 3.87 x10^6/uL (3.50-5.40) Hemoglobin 12.4 g/dL (12.0-15.5) Hematocrit 37.2 % (36.0-47.0) Mean Corpuscular Volume 96 fL (79-100) Mean Corpuscular Hemoglobin 32 pg (25-35) Mean Corpuscular Hemoglobin Concent 33 g/dL (31-37) Red Cell Distribution Width 13.7 % (11.5-14.5) Platelet Count 205 x10^3/uL (140-400) Neutrophils (%) (Auto) 79 % (31-73) Lymphocytes (%) (Auto) 7 % (24-48) Monocytes (%) (Auto) 13 % (0-9) Eosinophils (%) (Auto) 0 % (0-3) Basophils (%) (Auto) 0 % (0-3) Neutrophils # (Auto) 4.9 x10^3uL (1.8-7.7) Lymphocytes # (Auto) 0.5 x10^3/uL (1.0-4.8) Monocytes # (Auto) 0.8 x10^3/uL (0.0-1.1) Eosinophils # (Auto) 0.0 x10^3/uL (0.0-0.7) Basophils # (Auto) 0.0 x10^3/uL (0.0-0.2) Sodium Level 134 mmol/L (136-145) Potassium Level 3.7 mmol/L (3.5-5.1) Chloride Level 96 mmol/L (98-107) Carbon Dioxide Level 29 mmol/L (21-32) Anion Gap 9 (6-14) Blood Urea Nitrogen 10 mg/dL (7-20) Creatinine 0.9 mg/dL (0.6-1.0) Estimated GFR (Cockcroft-Gault) 73.3 BUN/Creatinine Ratio 11 (6-20) Glucose Level 114 mg/dL (70-99) Calcium Level 9.0 mg/dL (8.5-10.1) Total Bilirubin 0.6 mg/dL (0.2-1.0) Aspartate Amino Transf (AST/SGOT) 20 U/L (15-37) Alanine Aminotransferase (ALT/SGPT) 21 U/L (14-59) Alkaline Phosphatase 88 U/L (46-116) Total Protein 7.1 g/dL (6.4-8.2) Albumin 3.2 g/dL (3.4-5.0) Albumin/Globulin Ratio 0.8 (1.0-1.7) Influenza Type A Antigen Positive (NEGATIVE) Influenza Type B Antigen Negative (NEGATIVE) Laboratory Tests Test 10/23/18 14:20 10/23/18 14:47 10/23/18 15:10 10/23/18 15:58 Urine Collection Type Unknown Urine Color Yellow Urine Clarity Clear Urine pH 7.0 Urine Specific [place] 1.020 Urine Protein Negative mg/dL (NEG-TRACE) Urine Glucose (UA) Negative mg/dL (NEG) Urine Ketones (Stick) Trace mg/dL (NEG) Urine Blood Negative (NEG) Urine Nitrite Negative (NEG) Urine Bilirubin Negative (NEG) Urine Urobilinogen Dipstick 0.2 mg/dL (0.2 mg/dL) Urine Leukocyte Esterase Negative (NEG) Urine RBC 0 /HPF (0-2) Urine WBC Rare /HPF (0-4) Urine Squamous Epithelial Cells Few /LPF Urine Amorphous Sediment Present /HPF Urine Bacteria 0 /HPF (0-FEW) White Blood Count 6.2 x10^3/uL (4.0-11.0) Red Blood Count 3.87 x10^6/uL (3.50-5.40) Hemoglobin 12.4 g/dL (12.0-15.5) Hematocrit 37.2 % (36.0-47.0) Mean Corpuscular Volume 96 fL (79-100) Mean Corpuscular Hemoglobin 32 pg (25-35) Mean Corpuscular Hemoglobin Concent 33 g/dL (31-37) Red Cell Distribution Width 13.7 % (11.5-14.5) Platelet Count 205 x10^3/uL (140-400) Neutrophils (%) (Auto) 79 % (31-73) Lymphocytes (%) (Auto) 7 % (24-48) Monocytes (%) (Auto) 13 % (0-9) Eosinophils (%) (Auto) 0 % (0-3) Basophils (%) (Auto) 0 % (0-3) Neutrophils # (Auto) 4.9 x10^3uL (1.8-7.7) Lymphocytes # (Auto) 0.5 x10^3/uL (1.0-4.8) Monocytes # (Auto) 0.8 x10^3/uL (0.0-1.1) Eosinophils # (Auto) 0.0 x10^3/uL (0.0-0.7) Basophils # (Auto) 0.0 x10^3/uL (0.0-0.2) Sodium Level 134 mmol/L (136-145) Potassium Level 3.7 mmol/L (3.5-5.1) Chloride Level 96 mmol/L (98-107) Carbon Dioxide Level 29 mmol/L (21-32) Anion Gap 9 (6-14) Blood Urea Nitrogen 10 mg/dL (7-20) Creatinine 0.9 mg/dL (0.6-1.0) Estimated GFR (Cockcroft-Gault) 73.3 BUN/Creatinine Ratio 11 (6-20) Glucose Level 114 mg/dL (70-99) Calcium Level 9.0 mg/dL (8.5-10.1) Total Bilirubin 0.6 mg/dL (0.2-1.0) Aspartate Amino Transf (AST/SGOT) 20 U/L (15-37) Alanine Aminotransferase (ALT/SGPT) 21 U/L (14-59) Alkaline Phosphatase 88 U/L (46-116) Total Protein 7.1 g/dL (6.4-8.2) Albumin 3.2 g/dL (3.4-5.0) Albumin/Globulin Ratio 0.8 (1.0-1.7) Influenza Type A Antigen Positive (NEGATIVE) Influenza Type B Antigen Negative (NEGATIVE) Images Images REASON: cough PROCEDURE: CHEST AP ONLY CHEST AP ONLY Clinical Indication: COUGH Comparison: 04/16/2018 portable chest x-ray exam. Findings: Right central venous infusion port is present. The cardiomediastinal silhouette is normal. Small subtle opacity at the right lateral upper lung field level is questioned this is just lateral to the central venous catheter at the clavicular level. There is no pneumothorax. No pleural effusion is appreciated. No acute bone abnormality. IMPRESSION: Opacity involving the right lateral upper lung field level. This is new compared to prior exam and possibly of infiltrate is questioned. Interval follow-up two-view chest x-ray exam to assess resolution is recommended. Electronically signed by: Nurys Lu MD (10/23/2018 3:05 PM) [facility] DICTATED and SIGNED BY: NURYS LU MD DATE: 10/23/18 1505 VTE Prophylaxis Ordered VTE Prophylaxis Devices: Yes VTE Pharmacological Prophylaxi: Yes Assessment/Plan Assessment/Plan impression right lateral upper lung field level. This is A new infiltrate possible gram pos or gram neg ACUTE Influenza A Acute hypoxic resp failure Multiple myeloma ON CHEMO Immuno-suppressed obesity plan admit tamiflu 75 mg po bid iv rocephin, zithromax ID CONSULT DVT PROPHYLAXIS HOME MEDS O2 support blood and urine cult iv vanc duonebs qid iv fluid support at high risk for viral sepsis per my chart review Past Medical History Past Medical History: Cancer Additional Past Medical Histor: chronic back pain, bone CA, multiple myloma Past Surgical History: Appendectomy, , Other Additional Past Surgical Histo: breast biopsy, rt chest port Alcohol Use: None Drug Use: None DEVIKA CALHOUN MD Oct 23, 2018 17:11
[2018-10-23] MEDS ORDERED: ALPRAZolam 0.5 MG TABLET PO PRN (17:30)
[2018-10-23] MEDS ORDERED: HYDROCODONE PO PRN (17:30)
[2018-10-23] MEDS ORDERED: CHLORPHEN P STIREX PO PRN (17:30)
[2018-10-23] MEDS ORDERED: HYDROcodone/APAP 5/325MG 1 TAB TABLET PO PRN (17:30)
[2018-10-23] MEDS ORDERED: PROCHLORPERAZINE 5 MG TABLET. PO PRN (17:45)
[2018-10-23 19:00] VITALS: BP 148/75
[2018-10-23] MEDS: GABAPENTIN 100 MG CAPSULE. PO SCH (20:58)
[2018-10-23] MEDS: CYCLOBENZAPRINE 10 MG TABLET. PO SCH (20:58)
[2018-10-23] MEDS: OSELTAMIVIR 30 MG CAPSULE PO SCH (20:58)
[2018-10-23] MEDS: ACYCLOVIR 200 MG CAPSULE. PO SCH (20:59)
[2018-10-23] MEDS ORDERED: VANCOMYCIN 2 GM in IV NORMAL SALINE 500ML BAG 500 ML IV ONE (21:00)
[2018-10-23] MEDS: ENOXAPARIN 40 MG/0.4 ML SYRINGE. SQ SCH (21:00)
[2018-10-23] MEDS: VANCOMYCIN PER PHARMACY MC PRN ×2 (21:10→21:12)
[2018-10-23 22:57] VITALS: BP 136/65
[2018-10-24] MEDS ORDERED: ACETAMINOPHEN 325 MG TABLET. PO PRN (02:00)
[2018-10-24 03:00] VITALS: BP 148/68
[2018-10-24 03:54] LABS: BASO % 1 % (0-3); EOS % 0 % (0-3); HEMATOCRIT 32.1 % (36.0-47.0); HEMOGLOBIN 10.6 g/dL (12.0-15.5); LYMPH # 0.5 x10^3/uL (1.0-4.8); LYMPH % 13 % (24-48); MEAN CORPUSCULAR HEMOGLOBIN 32 pg (25-35); MEAN CORPUSCULAR HGB CONC 33 g/dL (31-37); MEAN CORPUSCULAR VOLUME 97 fL (79-100); MONO # 0.6 x10^3/uL (0.0-1.1); MONO % 17 % (0-9); NEUT # 2.5 x10^3uL (1.8-7.7); NEUT % 69 % (31-73); PLATELET COUNT 159 x10^3/uL (140-400); RED BLOOD COUNT 3.29 x10^6/uL (3.50-5.40); RED CELL DISTRIBUTION WIDTH 13.7 % (11.5-14.5); WHITE BLOOD COUNT 3.6 x10^3/uL (4.0-11.0)
[2018-10-24 04:19] LABS: CALCIUM 8.1 mg/dL (8.5-10.1); CREATININE 0.9 mg/dL (0.6-1.0); GFR 73.3; POTASSIUM 3.4 mmol/L (3.5-5.1)
[2018-10-24 07:00] VITALS: BP 104/62
[2018-10-24] MEDS: ONDANSETRON ODT 4 MG TAB.RAPDIS. PO SCH ×4 (07:36→16:30)
[2018-10-24] MEDS ORDERED: POTASSIUM CHLORIDE 10 MEQ TABLET.ER. PO SCH (09:00)
[2018-10-24] MEDS ORDERED: fentaNYL 12MCG/HR PATCH 1 PATCH PATCH.TD72 TD SCH (09:00)
[2018-10-24] MEDS: GABAPENTIN 100 MG CAPSULE. PO SCH ×3 (09:14→19:48)
[2018-10-24] MEDS: MULTIVITAMIN with MINERAL TABLET. PO SCH (09:14)
[2018-10-24] MEDS: CHOLECALCIFEROL (VITAMIN D3) 1,000 UNIT TABLET PO SCH (09:14)
[2018-10-24] MEDS: DOCUSATE SODIUM 100 MG CAPSULE. PO SCH (09:15)
[2018-10-24] MEDS: OSELTAMIVIR 30 MG CAPSULE PO SCH ×2 (09:15→19:49)
[2018-10-24] MEDS: ASPIRIN ENTERIC COATED 81 MG TABLET.DR. PO SCH (09:15)
[2018-10-24] MEDS ORDERED: diphenhydrAMINE HCL 25 MG CAPSULE PO PRN (09:15)
[2018-10-24] MEDS ORDERED: guaiFENesin DM 200MG/20MG 10 ML SYRUP PO PRN (09:15)
[2018-10-24] MEDS: CYCLOBENZAPRINE 10 MG TABLET. PO SCH ×3 (09:15→19:49)
[2018-10-24] MEDS: ACYCLOVIR 200 MG CAPSULE. PO SCH ×2 (09:16→19:48)
[2018-10-24] MEDS ORDERED: ONDANSETRON PF 4 MG/2 ML VIAL. IV PRN (09:30)
[2018-10-24] MEDS: CETIRIZINE HCL 10 MG TABLET. PO SCH (09:52)
[2018-10-24] MEDS: FLUTICASONE 50MCG/NASAL SPRAY 16GM BOTTLE. NS SCH (09:53)
[2018-10-24] MEDS ORDERED: POTASSIUM CHLORIDE 20 MEQ TABLET.ER. PO ONE (10:00)
[2018-10-24 11:00] VITALS: BP 134/76
--- NOTE | 2018-10-24 11:26 | PDOC ---
PROGRESS NOTES Chief Complaint Chief Complaint PNA in an immunocompromised Sepsis possible gram-positive gram-negative PNA Multiple myeloma on chemotherapy 3 years-gets chemotherapy twice a month Influenza A Hypoxic respiratory failure in the background of above Obesity, BMI 33 sees MIld hypokalemia 3.4 Neutropenia 3.6 Thrombocytopenia mild with no bleeding Fevers Sepsis Herpes? On Zovirax History of Present Illness History of Present Illness Weak but no worse Cough, no increased S OA Still some low-grade temperatures She requests Dr. Jernigan to follow her while she is hospitalized K3.4, so-so by mouth WBC 3.6, platelets 159 Chief complaint for cough congestion may be SOA and fevers. She is on Rocephin vancomycin and Tamiflu Zovirax as home meds? Plan: consult pulmo and heme onc I did continue vanc, Rocephin and Tamiflu Add some PTOT Other supportive meds like DuoNeb's Zofran cough medicine, H1 antagonist Droplet isol Vitals Vitals Vital Signs Date Time Temp Pulse Resp B/P (MAP) Pulse Ox O2 Delivery O2 Flow Rate FiO2 10/24/18 11:00 96.7 67 18 134/76 (95) 93 Room Air 96.7 10/23/18 22:57 2.0 Physical Exam General: Alert, Oriented X3, Cooperative, mild distress Heart: Regular rate, Normal S1, Normal S2 Lungs: Clear, Other (symmetric chest expansion, diminished, no wheezing) Abdomen: Normal bowel sounds, Soft Extremities: No clubbing, No cyanosis, No edema Skin: No rashes, No breakdown, No significant lesion Labs LABS Laboratory Tests Test 10/23/18 14:20 10/23/18 14:47 10/23/18 15:10 10/23/18 15:58 Urine Collection Type Unknown Urine Color Yellow Urine Clarity Clear Urine pH 7.0 Urine Specific [place] 1.020 Urine Protein Negative mg/dL (NEG-TRACE) Urine Glucose (UA) Negative mg/dL (NEG) Urine Ketones (Stick) Trace mg/dL (NEG) Urine Blood Negative (NEG) Urine Nitrite Negative (NEG) Urine Bilirubin Negative (NEG) Urine Urobilinogen Dipstick 0.2 mg/dL (0.2 mg/dL) Urine Leukocyte Esterase Negative (NEG) Urine RBC 0 /HPF (0-2) Urine WBC Rare /HPF (0-4) Urine Squamous Epithelial Cells Few /LPF Urine Amorphous Sediment Present /HPF Urine Bacteria 0 /HPF (0-FEW) White Blood Count 6.2 x10^3/uL (4.0-11.0) Red Blood Count 3.87 x10^6/uL (3.50-5.40) Hemoglobin 12.4 g/dL (12.0-15.5) Hematocrit 37.2 % (36.0-47.0) Mean Corpuscular Volume 96 fL (79-100) Mean Corpuscular Hemoglobin 32 pg (25-35) Mean Corpuscular Hemoglobin Concent 33 g/dL (31-37) Red Cell Distribution Width 13.7 % (11.5-14.5) Platelet Count 205 x10^3/uL (140-400) Neutrophils (%) (Auto) 79 % (31-73) Lymphocytes (%) (Auto) 7 % (24-48) Monocytes (%) (Auto) 13 % (0-9) Eosinophils (%) (Auto) 0 % (0-3) Basophils (%) (Auto) 0 % (0-3) Neutrophils # (Auto) 4.9 x10^3uL (1.8-7.7) Lymphocytes # (Auto) 0.5 x10^3/uL (1.0-4.8) Monocytes # (Auto) 0.8 x10^3/uL (0.0-1.1) Eosinophils # (Auto) 0.0 x10^3/uL (0.0-0.7) Basophils # (Auto) 0.0 x10^3/uL (0.0-0.2) Sodium Level 134 mmol/L (136-145) Potassium Level 3.7 mmol/L (3.5-5.1) Chloride Level 96 mmol/L (98-107) Carbon Dioxide Level 29 mmol/L (21-32) Anion Gap 9 (6-14) Blood Urea Nitrogen 10 mg/dL (7-20) Creatinine 0.9 mg/dL (0.6-1.0) Estimated GFR (Cockcroft-Gault) 73.3 BUN/Creatinine Ratio 11 (6-20) Glucose Level 114 mg/dL (70-99) Calcium Level 9.0 mg/dL (8.5-10.1) Total Bilirubin 0.6 mg/dL (0.2-1.0) Aspartate Amino Transf (AST/SGOT) 20 U/L (15-37) Alanine Aminotransferase (ALT/SGPT) 21 U/L (14-59) Alkaline Phosphatase 88 U/L (46-116) Total Protein 7.1 g/dL (6.4-8.2) Albumin 3.2 g/dL (3.4-5.0) Albumin/Globulin Ratio 0.8 (1.0-1.7) Influenza Type A Antigen Positive (NEGATIVE) Influenza Type B Antigen Negative (NEGATIVE) Test 10/24/18 03:20 White Blood Count 3.6 x10^3/uL (4.0-11.0) Red Blood Count 3.29 x10^6/uL (3.50-5.40) Hemoglobin 10.6 g/dL (12.0-15.5) Hematocrit 32.1 % (36.0-47.0) Mean Corpuscular Volume 97 fL (79-100) Mean Corpuscular Hemoglobin 32 pg (25-35) Mean Corpuscular Hemoglobin Concent 33 g/dL (31-37) Red Cell Distribution Width 13.7 % (11.5-14.5) Platelet Count 159 x10^3/uL (140-400) Neutrophils (%) (Auto) 69 % (31-73) Lymphocytes (%) (Auto) 13 % (24-48) Monocytes (%) (Auto) 17 % (0-9) Eosinophils (%) (Auto) 0 % (0-3) Basophils (%) (Auto) 1 % (0-3) Neutrophils # (Auto) 2.5 x10^3uL (1.8-7.7) Lymphocytes # (Auto) 0.5 x10^3/uL (1.0-4.8) Monocytes # (Auto) 0.6 x10^3/uL (0.0-1.1) Eosinophils # (Auto) 0.0 x10^3/uL (0.0-0.7) Basophils # (Auto) 0.0 x10^3/uL (0.0-0.2) Sodium Level 137 mmol/L (136-145) Potassium Level 3.4 mmol/L (3.5-5.1) Chloride Level 101 mmol/L (98-107) Carbon Dioxide Level 28 mmol/L (21-32) Anion Gap 8 (6-14) Blood Urea Nitrogen 8 mg/dL (7-20) Creatinine 0.9 mg/dL (0.6-1.0) Estimated GFR (Cockcroft-Gault) 73.3 Glucose Level 89 mg/dL (70-99) Calcium Level 8.1 mg/dL (8.5-10.1) Procalcitonin < 0.10 ng/mL (0.00-0.10) Review of Systems Review of Systems Weak, cough, congestion, mild SOA, the rest of ROS 14 point negative Assessment and Plan Assessmemt and Plan Problems Medical Problems: (1) Cough Status: Acute (2) PNA (pneumonia) Status: Acute Comment Review of Relevant I have reviewed the following items astrid (where applicable) has been applied. Labs Laboratory Tests Test 10/23/18 14:20 10/23/18 14:47 10/23/18 15:10 10/23/18 15:58 Urine Collection Type Unknown Urine Color Yellow Urine Clarity Clear Urine pH 7.0 Urine Specific [place] 1.020 Urine Protein Negative mg/dL (NEG-TRACE) Urine Glucose (UA) Negative mg/dL (NEG) Urine Ketones (Stick) Trace mg/dL (NEG) Urine Blood Negative (NEG) Urine Nitrite Negative (NEG) Urine Bilirubin Negative (NEG) Urine Urobilinogen Dipstick 0.2 mg/dL (0.2 mg/dL) Urine Leukocyte Esterase Negative (NEG) Urine RBC 0 /HPF (0-2) Urine WBC Rare /HPF (0-4) Urine Squamous Epithelial Cells Few /LPF Urine Amorphous Sediment Present /HPF Urine Bacteria 0 /HPF (0-FEW) White Blood Count 6.2 x10^3/uL (4.0-11.0) Red Blood Count 3.87 x10^6/uL (3.50-5.40) Hemoglobin 12.4 g/dL (12.0-15.5) Hematocrit 37.2 % (36.0-47.0) Mean Corpuscular Volume 96 fL (79-100) Mean Corpuscular Hemoglobin 32 pg (25-35) Mean Corpuscular Hemoglobin Concent 33 g/dL (31-37) Red Cell Distribution Width 13.7 % (11.5-14.5) Platelet Count 205 x10^3/uL (140-400) Neutrophils (%) (Auto) 79 % (31-73) Lymphocytes (%) (Auto) 7 % (24-48) Monocytes (%) (Auto) 13 % (0-9) Eosinophils (%) (Auto) 0 % (0-3) Basophils (%) (Auto) 0 % (0-3) Neutrophils # (Auto) 4.9 x10^3uL (1.8-7.7) Lymphocytes # (Auto) 0.5 x10^3/uL (1.0-4.8) Monocytes # (Auto) 0.8 x10^3/uL (0.0-1.1) Eosinophils # (Auto) 0.0 x10^3/uL (0.0-0.7) Basophils # (Auto) 0.0 x10^3/uL (0.0-0.2) Sodium Level 134 mmol/L (136-145) Potassium Level 3.7 mmol/L (3.5-5.1) Chloride Level 96 mmol/L (98-107) Carbon Dioxide Level 29 mmol/L (21-32) Anion Gap 9 (6-14) Blood Urea Nitrogen 10 mg/dL (7-20) Creatinine 0.9 mg/dL (0.6-1.0) Estimated GFR (Cockcroft-Gault) 73.3 BUN/Creatinine Ratio 11 (6-20) Glucose Level 114 mg/dL (70-99) Calcium Level 9.0 mg/dL (8.5-10.1) Total Bilirubin 0.6 mg/dL (0.2-1.0) Aspartate Amino Transf (AST/SGOT) 20 U/L (15-37) Alanine Aminotransferase (ALT/SGPT) 21 U/L (14-59) Alkaline Phosphatase 88 U/L (46-116) Total Protein 7.1 g/dL (6.4-8.2) Albumin 3.2 g/dL (3.4-5.0) Albumin/Globulin Ratio 0.8 (1.0-1.7) Influenza Type A Antigen Positive (NEGATIVE) Influenza Type B Antigen Negative (NEGATIVE) Test 10/24/18 03:20 White Blood Count 3.6 x10^3/uL (4.0-11.0) Red Blood Count 3.29 x10^6/uL (3.50-5.40) Hemoglobin 10.6 g/dL (12.0-15.5) Hematocrit 32.1 % (36.0-47.0) Mean Corpuscular Volume 97 fL (79-100) Mean Corpuscular Hemoglobin 32 pg (25-35) Mean Corpuscular Hemoglobin Concent 33 g/dL (31-37) Red Cell Distribution Width 13.7 % (11.5-14.5) Platelet Count 159 x10^3/uL (140-400) Neutrophils (%) (Auto) 69 % (31-73) Lymphocytes (%) (Auto) 13 % (24-48) Monocytes (%) (Auto) 17 % (0-9) Eosinophils (%) (Auto) 0 % (0-3) Basophils (%) (Auto) 1 % (0-3) Neutrophils # (Auto) 2.5 x10^3uL (1.8-7.7) Lymphocytes # (Auto) 0.5 x10^3/uL (1.0-4.8) Monocytes # (Auto) 0.6 x10^3/uL (0.0-1.1) Eosinophils # (Auto) 0.0 x10^3/uL (0.0-0.7) Basophils # (Auto) 0.0 x10^3/uL (0.0-0.2) Sodium Level 137 mmol/L (136-145) Potassium Level 3.4 mmol/L (3.5-5.1) Chloride Level 101 mmol/L (98-107) Carbon Dioxide Level 28 mmol/L (21-32) Anion Gap 8 (6-14) Blood Urea Nitrogen 8 mg/dL (7-20) Creatinine 0.9 mg/dL (0.6-1.0) Estimated GFR (Cockcroft-Gault) 73.3 Glucose Level 89 mg/dL (70-99) Calcium Level 8.1 mg/dL (8.5-10.1) Procalcitonin < 0.10 ng/mL (0.00-0.10) Laboratory Tests Test 10/23/18 14:20 10/23/18 14:47 10/23/18 15:10 10/23/18 15:58 Urine Collection Type Unknown Urine Color Yellow Urine Clarity Clear Urine pH 7.0 Urine Specific [place] 1.020 Urine Protein Negative mg/dL (NEG-TRACE) Urine Glucose (UA) Negative mg/dL (NEG) Urine Ketones (Stick) Trace mg/dL (NEG) Urine Blood Negative (NEG) Urine Nitrite Negative (NEG) Urine Bilirubin Negative (NEG) Urine Urobilinogen Dipstick 0.2 mg/dL (0.2 mg/dL) Urine Leukocyte Esterase Negative (NEG) Urine RBC 0 /HPF (0-2) Urine WBC Rare /HPF (0-4) Urine Squamous Epithelial Cells Few /LPF Urine Amorphous Sediment Present /HPF Urine Bacteria 0 /HPF (0-FEW) White Blood Count 6.2 x10^3/uL (4.0-11.0) Red Blood Count 3.87 x10^6/uL (3.50-5.40) Hemoglobin 12.4 g/dL (12.0-15.5) Hematocrit 37.2 % (36.0-47.0) Mean Corpuscular Volume 96 fL (79-100) Mean Corpuscular Hemoglobin 32 pg (25-35) Mean Corpuscular Hemoglobin Concent 33 g/dL (31-37) Red Cell Distribution Width 13.7 % (11.5-14.5) Platelet Count 205 x10^3/uL (140-400) Neutrophils (%) (Auto) 79 % (31-73) Lymphocytes (%) (Auto) 7 % (24-48) Monocytes (%) (Auto) 13 % (0-9) Eosinophils (%) (Auto) 0 % (0-3) Basophils (%) (Auto) 0 % (0-3) Neutrophils # (Auto) 4.9 x10^3uL (1.8-7.7) Lymphocytes # (Auto) 0.5 x10^3/uL (1.0-4.8) Monocytes # (Auto) 0.8 x10^3/uL (0.0-1.1) Eosinophils # (Auto) 0.0 x10^3/uL (0.0-0.7) Basophils # (Auto) 0.0 x10^3/uL (0.0-0.2) Sodium Level 134 mmol/L (136-145) Potassium Level 3.7 mmol/L (3.5-5.1) Chloride Level 96 mmol/L (98-107) Carbon Dioxide Level 29 mmol/L (21-32) Anion Gap 9 (6-14) Blood Urea Nitrogen 10 mg/dL (7-20) Creatinine 0.9 mg/dL (0.6-1.0) Estimated GFR (Cockcroft-Gault) 73.3 BUN/Creatinine Ratio 11 (6-20) Glucose Level 114 mg/dL (70-99) Calcium Level 9.0 mg/dL (8.5-10.1) Total Bilirubin 0.6 mg/dL (0.2-1.0) Aspartate Amino Transf (AST/SGOT) 20 U/L (15-37) Alanine Aminotransferase (ALT/SGPT) 21 U/L (14-59) Alkaline Phosphatase 88 U/L (46-116) Total Protein 7.1 g/dL (6.4-8.2) Albumin 3.2 g/dL (3.4-5.0) Albumin/Globulin Ratio 0.8 (1.0-1.7) Influenza Type A Antigen Positive (NEGATIVE) Influenza Type B Antigen Negative (NEGATIVE) Test 10/24/18 03:20 White Blood Count 3.6 x10^3/uL (4.0-11.0) Red Blood Count 3.29 x10^6/uL (3.50-5.40) Hemoglobin 10.6 g/dL (12.0-15.5) Hematocrit 32.1 % (36.0-47.0) Mean Corpuscular Volume 97 fL (79-100) Mean Corpuscular Hemoglobin 32 pg (25-35) Mean Corpuscular Hemoglobin Concent 33 g/dL (31-37) Red Cell Distribution Width 13.7 % (11.5-14.5) Platelet Count 159 x10^3/uL (140-400) Neutrophils (%) (Auto) 69 % (31-73) Lymphocytes (%) (Auto) 13 % (24-48) Monocytes (%) (Auto) 17 % (0-9) Eosinophils (%) (Auto) 0 % (0-3) Basophils (%) (Auto) 1 % (0-3) Neutrophils # (Auto) 2.5 x10^3uL (1.8-7.7) Lymphocytes # (Auto) 0.5 x10^3/uL (1.0-4.8) Monocytes # (Auto) 0.6 x10^3/uL (0.0-1.1) Eosinophils # (Auto) 0.0 x10^3/uL (0.0-0.7) Basophils # (Auto) 0.0 x10^3/uL (0.0-0.2) Sodium Level 137 mmol/L (136-145) Potassium Level 3.4 mmol/L (3.5-5.1) Chloride Level 101 mmol/L (98-107) Carbon Dioxide Level 28 mmol/L (21-32) Anion Gap 8 (6-14) Blood Urea Nitrogen 8 mg/dL (7-20) Creatinine 0.9 mg/dL (0.6-1.0) Estimated GFR (Cockcroft-Gault) 73.3 Glucose Level 89 mg/dL (70-99) Calcium Level 8.1 mg/dL (8.5-10.1) Procalcitonin < 0.10 ng/mL (0.00-0.10) Medications Current Medications Metoclopramide HCl (Reglan Vial) 10 mg 1X ONCE IV Last administered on at 15:42; Start 10/23/18 at 15:15; Stop 10/23/18 at 15:16; Status DC Sodium Chloride 1,000 ml @ 1,000 mls/hr 1X ONCE IV Last administered on at 15:42; Start 10/23/18 at 15:15; Stop 10/23/18 at 16:14; Status DC Ondansetron HCl (Zofran) 4 mg PRN Q8HRS PRN IV NAUSEA/VOMITING; Start 10/23/18 at 16:00; Stop 10/24/18 at 09:20; Status DC Morphine Sulfate (Morphine Sulfate) 2 mg PRN Q2HR PRN IV PAIN; Start 10/23/18 at 16:00; Stop 10/24/18 at 15:59 Sodium Chloride 1,000 ml @ 100 mls/hr Q10H IV Last administered on 10/23/18at 17:47; Start 10/23/18 at 15:58; Stop 10/23/18 at 19:57; Status DC Azithromycin 250 ml @ 250 mls/hr 1X ONCE IV Last administered on 10/23/18at 16 :00; Start 10/23/18 at 16:00; Stop 10/23/18 at 16:59; Status DC Ceftriaxone Sodium (Rocephin) 1 gm 1X ONCE IVP Last administered on 10/23/18 16:17; Start 10/23/18 at 16:00; Stop 10/23/18 at 16:08; Status DC Oseltamivir Phosphate (Tamiflu) 75 mg 1X ONCE PO Last administered on 16:58; Start 10/23/18 at 16:45; Stop 10/23/18 at 16:46; Status DC Oseltamivir Phosphate (Tamiflu) 30 mg BID PO Last administered on 10/24/18 09: 15; Start 10/23/18 at 21:00; Stop 10/28/18 at 20:59 Alprazolam (Xanax) 0.5 mg PRN Q6HRS PRN PO ANXIETY / AGITATION Last administered on 10/23/18 18:20; Start 10/23/18 at 17:30 Aspirin (Ecotrin) 81 mg DAILY PO Last administered on 10/24/18 09:15; Start at 09:00 Docusate Sodium (Colace) 100 mg DAILY PO Last administered on 10/24/18 09:15; Start 10/24/18 at 09:00 Fentanyl (Duragesic 12mcg/ Hr Patch) 1 patch Q3DAYS TD Last administered on 09:16; Start 10/24/18 at 09:00 Gabapentin (Neurontin) 100 mg TID PO Last administered on 10/24/18 09:14; Start 10/23/18 at 21:00 Acetaminophen/ Hydrocodone Bitart (Lortab 5/325) 1 tab PRN Q4HRS PRN PO PAIN; Start 10/23/18 at 17:30 Ondansetron HCl (Zofran Odt) 8 mg TIDAC PO Last administered on 10/24/18 11:21 ; Start 10/24/18 at 07:30 Potassium Chloride (Klor-Con) 10 meq DAILY PO Last administered on 10/24/18 09 :15; Start 10/24/18 at 09:00 Acyclovir (Zovirax) 800 mg BID PO Last administered on 10/24/18 09:16; Start 10/23/18 at 21:00 Vitamin D (Vitamin D3) 4,000 unit DAILY PO Last administered on 10/24/18at 09:14 ; Start 10/24/18 at 09:00 Cyclobenzaprine HCl (Flexeril) 5 mg TID PO Last administered on 10/24/18at 09:15 ; Start 10/23/18 at 21:00 Non-Formulary Medication (Hydrocodone/ Chlorphen P-Stirex (Tussionex Pennkinetic Susp)) 5 ml BID PRN PO COUGH; Start 10/23/18 at 17:30; Stop at 17:52; Status DC Multivitamins (Thera M Plus) 1 tab DAILY PO Last administered on 10/24/18at 09: 14; Start 10/24/18 at 09:00 Prochlorperazine Maleate (Compazine) 10 mg PRN Q6HRS PRN PO NAUSEA/VOMITING; Start 10/23/18 at 17:45 Enoxaparin Sodium (Lovenox 40mg Syringe) 40 mg Q24H SQ Last administered on at 21:00; Start 10/23/18 at 21:00 Ceftriaxone Sodium (Rocephin) 1 gm Q24H IVP ; Start 10/24/18 at 17:00 Azithromycin 250 ml @ 250 mls/hr 1X ONCE IV ; Start 10/23/18 at 20:30; Stop at 21:29; Status UNV Vancomycin HCl (Vanco Per Pharmacy) 1 each PRN DAILY PRN MC SEE COMMENTS Last administered on 10/23/18at 21:12; Start 10/23/18 at 20:30 Sodium Chloride 1,000 ml @ 75 mls/hr 1X ONCE IV Last administered on at 20:59; Start 10/23/18 at 20:30; Stop 10/24/18 at 09:49; Status DC Azithromycin 500 mg/Sodium Chloride 250 ml @ 250 mls/hr 1X ONCE IV ; Start at 17:00; Stop 10/24/18 at 17:59 Vancomycin HCl 2 gm/Sodium Chloride 500 ml @ 250 mls/hr 1X ONCE IV Last administered on 10/23/18at 21:34; Start 10/23/18 at 21:00; Stop 10/23/18 at 22:59 ; Status DC Vancomycin HCl 1.25 gm/Sodium Chloride 250 ml @ 167 mls/hr Q24H IV ; Start at 22:00 Vancomycin HCl (Vancomycin Trough Level) 1 each 1X ONCE MC ; Start 10/25/18 at 21:30; Stop 10/25/18 at 21:31 Acetaminophen (Tylenol) 650 mg PRN Q6HRS PRN PO fever Last administered on 10/24at 02:28; Start 10/24/18 at 02:00 Ondansetron HCl (Zofran) 4 mg PRN Q6HRS PRN IV NAUSEA/VOMITING; Start 10/24/18 at 09:30 Potassium Chloride (Klor-Con) 40 meq 1X ONCE PO Last administered on at 09:52; Start 10/24/18 at 10:00; Stop 10/24/18 at 10:01; Status DC Guaifenesin (Robitussin Dm) 10 ml PRN Q6HRS PRN PO COUGH; Start 10/24/18 at 09: 15 Cetirizine HCl (ZyrTEC) 10 mg DAILY PO Last administered on 10/24/18at 09:52; Start 10/24/18 at 10:00 Fluticasone Propionate (Flonase) 2 spray DAILY NS Last administered on at 09:53; Start 10/24/18 at 10:00 Diphenhydramine HCl (Benadryl) 25 mg PRN QHS PRN PO INSOMNIA; Start 10/24/18 at 09:15 Active Scripts Active Medrol (Methylprednisolone) 4 Mg Tab.ds.pk 1 Pkg PO UD Cyclobenzaprine Hcl 5 Mg Tablet 1 Tab PO TID Zithromax (Azithromycin) 250 Mg Tablet 1 Pkg PO UD Tussionex Pennkinetic Susp (Hydrocodone/Chlorphen P-Stirex) 115 Ml Julianne.er.12h 5 Ml PO BID PRN Compazine (Prochlorperazine Maleate) 10 Mg Tablet 10 Mg PO PRN Q6HRS PRN Zofran Odt (Ondansetron) 4 Mg Tab.rapdis 8 Mg PO TIDAC Reported Potassium Chloride 10 Meq Tab.sr.24h 10 Meq PO DAILY Multivitamins (Multivitamin) 1 Each Tablet 1 Tab PO DAILY [place] 5-325 Tablet (Acetaminophen/Hydrocodone Bitart) 1 Each Tablet 1 Tab PO PRN Q4HRS PRN Gabapentin (Gabapentin) 100 Mg Capsule 100 Mg PO TID DURAGESIC 12mcg/hr (Fentanyl) 1 Each Patch.td72 1 Patch TP Q3DAYS Colace (Docusate Sodium) 100 Mg Capsule 1 Cap PO DAILY Aspir 81 (Aspirin) 81 Mg Tablet.dr 1 Tab PO DAILY Xanax (Alprazolam) 0.5 Mg Tablet 0.5 Mg PO PRN Q6HRS PRN Acyclovir 800 Mg Tablet 1 Tab PO BID Vitamin D3 (Cholecalciferol (Vitamin D3)) 4,000 Unit Capsule 4,000 Unit PO DAILY Vitals/I & O Vital Sign - Last 24 Hours 10/23/18 10/23/18 10/23/18 10/23/18 14:20 14:45 15:42 17:09 Temp 99.0 99.0 Pulse 88 68 68 68 Resp 20 22 22 22 B/P (MAP) 168/78 (108) 160/71 (100) 138/87 (104) Pulse Ox 93 89 95 95 O2 Delivery Room Air Room Air Nasal Cannula Room Air O2 Flow Rate 2.0 10/23/18 10/23/18 10/23/18 10/23/18 18:02 19:00 20:55 22:57 Temp 100.0 99.4 100.0 99.4 Pulse 72 82 Resp 18 18 B/P (MAP) 148/75 (99) 136/65 (88) Pulse Ox 94 90 O2 Delivery Room Air Room Air Room Air Room Air O2 Flow Rate 2.0 2.0 10/24/18 10/24/18 10/24/18 10/24/18 03:00 07:00 07:38 09:16 Temp 101.0 97.4 101.0 97.4 Pulse 81 69 Resp 18 18 B/P (MAP) 148/68 (94) 104/62 (76) Pulse Ox 93 93 O2 Delivery Room Air Room Air Room Air Room Air 10/24/18 11:00 Temp 96.7 96.7 Pulse 67 Resp 18 B/P (MAP) 134/76 (95) Pulse Ox 93 O2 Delivery Room Air Intake and Output 10/23/18 10/23/18 10/24/18 15:00 23:00 07:00 Intake Total 317 ml 988 ml Balance 317 ml 988 ml ASAD ACOSTA MD Oct 24, 2018 11:26
[2018-10-24] MEDS: VANCOMYCIN PER PHARMACY MC PRN (12:36)
[2018-10-24 15:00] VITALS: BP 130/61
[2018-10-24] MEDS ORDERED: AZITHROMYCIN 500 MG in IV NORMAL SALINE 250ML 250 ML IV ONE (17:00)
[2018-10-24] MEDS ORDERED: cefTRIAXone IV Push 1 GM VIAL. IVP SCH (17:00)
--- NOTE | 2018-10-24 18:05 | PDOC ---
PULMONARY PROGRESS NOTES Vitals Vital Signs Date Time Temp Pulse Resp B/P (MAP) Pulse Ox O2 Delivery O2 Flow Rate FiO2 10/24/18 15:00 99.9 71 18 130/61 (84) 97 Room Air 99.9 10/23/18 22:57 2.0 Lungs: Clear, Other (symmetric chest expansion, diminished, no wheezing) Labs Laboratory Tests Test 10/23/18 14:20 10/23/18 14:47 10/23/18 15:10 10/23/18 15:58 Urine Collection Type Unknown Urine Color Yellow Urine Clarity Clear Urine pH 7.0 Urine Specific [place] 1.020 Urine Protein Negative mg/dL (NEG-TRACE) Urine Glucose (UA) Negative mg/dL (NEG) Urine Ketones (Stick) Trace mg/dL (NEG) Urine Blood Negative (NEG) Urine Nitrite Negative (NEG) Urine Bilirubin Negative (NEG) Urine Urobilinogen Dipstick 0.2 mg/dL (0.2 mg/dL) Urine Leukocyte Esterase Negative (NEG) Urine RBC 0 /HPF (0-2) Urine WBC Rare /HPF (0-4) Urine Squamous Epithelial Cells Few /LPF Urine Amorphous Sediment Present /HPF Urine Bacteria 0 /HPF (0-FEW) White Blood Count 6.2 x10^3/uL (4.0-11.0) Red Blood Count 3.87 x10^6/uL (3.50-5.40) Hemoglobin 12.4 g/dL (12.0-15.5) Hematocrit 37.2 % (36.0-47.0) Mean Corpuscular Volume 96 fL (79-100) Mean Corpuscular Hemoglobin 32 pg (25-35) Mean Corpuscular Hemoglobin Concent 33 g/dL (31-37) Red Cell Distribution Width 13.7 % (11.5-14.5) Platelet Count 205 x10^3/uL (140-400) Neutrophils (%) (Auto) 79 % (31-73) Lymphocytes (%) (Auto) 7 % (24-48) Monocytes (%) (Auto) 13 % (0-9) Eosinophils (%) (Auto) 0 % (0-3) Basophils (%) (Auto) 0 % (0-3) Neutrophils # (Auto) 4.9 x10^3uL (1.8-7.7) Lymphocytes # (Auto) 0.5 x10^3/uL (1.0-4.8) Monocytes # (Auto) 0.8 x10^3/uL (0.0-1.1) Eosinophils # (Auto) 0.0 x10^3/uL (0.0-0.7) Basophils # (Auto) 0.0 x10^3/uL (0.0-0.2) Sodium Level 134 mmol/L (136-145) Potassium Level 3.7 mmol/L (3.5-5.1) Chloride Level 96 mmol/L (98-107) Carbon Dioxide Level 29 mmol/L (21-32) Anion Gap 9 (6-14) Blood Urea Nitrogen 10 mg/dL (7-20) Creatinine 0.9 mg/dL (0.6-1.0) Estimated GFR (Cockcroft-Gault) 73.3 BUN/Creatinine Ratio 11 (6-20) Glucose Level 114 mg/dL (70-99) Calcium Level 9.0 mg/dL (8.5-10.1) Total Bilirubin 0.6 mg/dL (0.2-1.0) Aspartate Amino Transf (AST/SGOT) 20 U/L (15-37) Alanine Aminotransferase (ALT/SGPT) 21 U/L (14-59) Alkaline Phosphatase 88 U/L (46-116) Total Protein 7.1 g/dL (6.4-8.2) Albumin 3.2 g/dL (3.4-5.0) Albumin/Globulin Ratio 0.8 (1.0-1.7) Influenza Type A Antigen Positive (NEGATIVE) Influenza Type B Antigen Negative (NEGATIVE) Test 10/24/18 03:20 White Blood Count 3.6 x10^3/uL (4.0-11.0) Red Blood Count 3.29 x10^6/uL (3.50-5.40) Hemoglobin 10.6 g/dL (12.0-15.5) Hematocrit 32.1 % (36.0-47.0) Mean Corpuscular Volume 97 fL (79-100) Mean Corpuscular Hemoglobin 32 pg (25-35) Mean Corpuscular Hemoglobin Concent 33 g/dL (31-37) Red Cell Distribution Width 13.7 % (11.5-14.5) Platelet Count 159 x10^3/uL (140-400) Neutrophils (%) (Auto) 69 % (31-73) Lymphocytes (%) (Auto) 13 % (24-48) Monocytes (%) (Auto) 17 % (0-9) Eosinophils (%) (Auto) 0 % (0-3) Basophils (%) (Auto) 1 % (0-3) Neutrophils # (Auto) 2.5 x10^3uL (1.8-7.7) Lymphocytes # (Auto) 0.5 x10^3/uL (1.0-4.8) Monocytes # (Auto) 0.6 x10^3/uL (0.0-1.1) Eosinophils # (Auto) 0.0 x10^3/uL (0.0-0.7) Basophils # (Auto) 0.0 x10^3/uL (0.0-0.2) Sodium Level 137 mmol/L (136-145) Potassium Level 3.4 mmol/L (3.5-5.1) Chloride Level 101 mmol/L (98-107) Carbon Dioxide Level 28 mmol/L (21-32) Anion Gap 8 (6-14) Blood Urea Nitrogen 8 mg/dL (7-20) Creatinine 0.9 mg/dL (0.6-1.0) Estimated GFR (Cockcroft-Gault) 73.3 Glucose Level 89 mg/dL (70-99) Calcium Level 8.1 mg/dL (8.5-10.1) Procalcitonin < 0.10 ng/mL (0.00-0.10) Laboratory Tests Test 10/24/18 03:20 White Blood Count 3.6 x10^3/uL (4.0-11.0) Red Blood Count 3.29 x10^6/uL (3.50-5.40) Hemoglobin 10.6 g/dL (12.0-15.5) Hematocrit 32.1 % (36.0-47.0) Mean Corpuscular Volume 97 fL (79-100) Mean Corpuscular Hemoglobin 32 pg (25-35) Mean Corpuscular Hemoglobin Concent 33 g/dL (31-37) Red Cell Distribution Width 13.7 % (11.5-14.5) Platelet Count 159 x10^3/uL (140-400) Neutrophils (%) (Auto) 69 % (31-73) Lymphocytes (%) (Auto) 13 % (24-48) Monocytes (%) (Auto) 17 % (0-9) Eosinophils (%) (Auto) 0 % (0-3) Basophils (%) (Auto) 1 % (0-3) Neutrophils # (Auto) 2.5 x10^3uL (1.8-7.7) Lymphocytes # (Auto) 0.5 x10^3/uL (1.0-4.8) Monocytes # (Auto) 0.6 x10^3/uL (0.0-1.1) Eosinophils # (Auto) 0.0 x10^3/uL (0.0-0.7) Basophils # (Auto) 0.0 x10^3/uL (0.0-0.2) Sodium Level 137 mmol/L (136-145) Potassium Level 3.4 mmol/L (3.5-5.1) Chloride Level 101 mmol/L (98-107) Carbon Dioxide Level 28 mmol/L (21-32) Anion Gap 8 (6-14) Blood Urea Nitrogen 8 mg/dL (7-20) Creatinine 0.9 mg/dL (0.6-1.0) Estimated GFR (Cockcroft-Gault) 73.3 Glucose Level 89 mg/dL (70-99) Calcium Level 8.1 mg/dL (8.5-10.1) Procalcitonin < 0.10 ng/mL (0.00-0.10) Medications Active Scripts Medications Dose Route/Sig Max Daily Dose Days Date Category Medrol (Methylprednisolone) 4 Mg Tab.ds.pk 1 Pkg PO UD 01/21/18 Rx Cyclobenzaprine Hcl 5 Mg Tablet 1 Tab PO TID 01/21/18 Rx Zithromax (Azithromycin) 250 Mg Tablet 1 Pkg PO UD 01/08/18 Rx Tussionex Pennkinetic Susp (Hydrocodone/Chlorphen P-Stirex) 115 Ml Julianne.er.12h 5 Ml PO BID PRN 01/08/18 Rx Potassium Chloride 10 Meq Tab.sr.24h 10 Meq PO DAILY 09/07/17 Reported Multivitamins (Multivitamin) 1 Each Tablet 1 Tab PO DAILY 09/07/17 Reported [place] 5-325 Tablet (Acetaminophen/Hydrocodone Bitart) 1 Each Tablet 1 Tab PO PRN Q4HRS PRN 09/07/17 Reported Gabapentin (Gabapentin) 100 Mg Capsule 100 Mg PO TID 09/07/17 Reported DURAGESIC 12mcg/hr (Fentanyl) 1 Each Patch.td72 1 Patch TP Q3DAYS 09/07/17 Reported Colace (Docusate Sodium) 100 Mg Capsule 1 Cap PO DAILY 09/07/17 Reported Aspir 81 (Aspirin) 81 Mg Tablet.dr 1 Tab PO DAILY 09/07/17 Reported Xanax (Alprazolam) 0.5 Mg Tablet 0.5 Mg PO PRN Q6HRS PRN 09/07/17 Reported Acyclovir 800 Mg Tablet 1 Tab PO BID 09/07/17 Reported Vitamin D3 (Cholecalciferol (Vitamin D3)) 4,000 Unit Capsule 4,000 Unit PO DAILY 09/07/17 Reported Compazine (Prochlorperazine Maleate) 10 Mg Tablet 10 Mg PO PRN Q6HRS PRN 09/15/14 Rx Zofran Odt (Ondansetron) 4 Mg Tab.rapdis 8 Mg PO TIDAC 09/15/14 Rx Impression . FULL NOTE DICTATED ABNORMAL CXR PNEUMONIA AGREE WITH CURRENT RX THANKS ESTRELLA MENCHACA MD Oct 24, 2018 18:05
[2018-10-24 19:00] VITALS: BP 125/62
[2018-10-24] MEDS: ENOXAPARIN 40 MG/0.4 ML SYRINGE. SQ SCH (19:51)
--- NOTE | 2018-10-24 20:26 | CONS ---
DATE OF CONSULTATION: 10/24/2018 REQUESTING PHYSICIAN: Dr. Zachery Ruelas. REASON FOR CONSULTATION: Multiple myeloma, on chemotherapy, now admitted with influenza A and pneumonia. HISTORY OF PRESENT ILLNESS: The patient is a 77-year-old female who was diagnosed with multiple myeloma on 09/11/2014. In addition, she was also noted to have CLL in the bone marrow biopsy. She received chemotherapy with Velcade, dexamethasone and Revlimid. She had evidence of disease progression in 03/2017 and hence treatment was switched to Kyprolis with dexamethasone on 04/01/2017. She is responding very well to treatment and she is tolerating the treatments very well. Her most recent chemotherapy was cycle #20 day #2, given on 10/14/2018. She presented to [facility] on 10/23/2018 with complaints of cough, congestion and nausea. Influenza screen was positive for influenza A. In addition, she was noted to have a low-grade temperature. She underwent a chest x-ray on 10/23/2018 that revealed opacity involving the right lateral upper lung field, which is new and a possibility of infiltrate is entertained. She was admitted for management of influenza A and pneumonia. PAST MEDICAL HISTORY: Chronic back pain, appendectomy, section, history of breast biopsy. FAMILY HISTORY: Negative for malignancy. SOCIAL HISTORY: No smoking or alcohol abuse. REVIEW OF SYSTEMS: A 12-point review of system was performed. Pertinent positives are mentioned in the history of presenting illness. Rest of the system review is negative. PHYSICAL EXAMINATION: GENERAL APPEARANCE: The patient is a 77-year-old female who is in no acute cardiorespiratory distress. VITAL SIGNS: Blood pressure 134/76, temperature 96.7. HEENT: Head: Atraumatic, normocephalic. Eyes: No icterus. NECK: Supple. CHEST: Bilaterally symmetrical. HEART: S1, S2 normal. ABDOMEN: Soft, nontender. CENTRAL NERVOUS SYSTEM: No focal deficits. LYMPHATICS: No lymphadenopathy. SKIN: No rashes. PSYCHOLOGIC: Mood and affect are appropriate. MUSCULOSKELETAL: No joint effusions. LABORATORY DATA: WBC 3.6, hemoglobin 10.6, platelet count 159. Creatinine 0.9. IMPRESSION AND PLAN: 1. Multiple myeloma, diagnosed on 09/11/2014. She is currently on chemotherapy with Kyprolis. Her most recent treatment was on 10/14/2018. I will defer next cycle by 2 weeks because of underlying pneumonia and influenza A. 2. Pneumonia. Continue management per primary team. 3. Influenza A. Continue management per primary team. 4. Anemia and leukopenia are new and acute, which is reactive due to underlying infection. Continue to monitor. JERMAN MATA MD DR: MELO/amara JOB#: [id number] / [id number] SUZANNA
[2018-10-24] MEDS ORDERED: VANCOMYCIN 1.25 GM in IV NORMAL SALINE 250ML 250 ML IV SCH (22:00)
[2018-10-24 23:00] VITALS: BP 130/59
--- NOTE | 2018-10-25 00:52 | CONS ---
DATE OF CONSULTATION: 10/24/2018 ATTENDING PHYSICIAN: Dr. Ruelas. CONSULTATION: Dr. Estrella Menchaca. REASON FOR CONSULTATION: The patient seen in pulmonary consultation at the request of Dr. Ruelas for abnormal x-ray. HISTORY OF PRESENT ILLNESS: The patient is a 77-year-old that is currently being treated for multiple myeloma under the direction of Dr. Jernigan, up-to-date on the Flu and pneumonia vaccination presented with increasing cough, congestion. She was not more short of breath. She also had some nausea. She had a chest x-ray, which revealed right upper lobe opacity. I was asked to see her in consultation. She had low-grade fever. Once again, the cough is mostly nonproductive. Her white count was 6.2, dropped to 3.6 this morning. Serology for influenza was positive. UA was noted. Electrolytes were noted. Her albumin level was 3.8, total protein was 7.1. Procalcitonin was less than ____. I was asked to see her in consulting for further evaluation. PAST MEDICAL HISTORY: 1. Multiple myeloma, currently being treated. Diagnosis was made 3 years ago. She had some back pain. 2. Chronic pain. PAST SURGICAL HISTORY: Appendectomy, . ALLERGIES: ASPIRIN AND CODEINE. CURRENT MEDICATIONS: List was reviewed. SOCIAL HISTORY: She has never smoked. REVIEW OF SYSTEMS: As indicated above, otherwise, a 10-point system was reviewed and negative. PHYSICAL EXAMINATION: VITAL SIGNS: Stable. O2 saturation was greater than 92%. Yesterday, she had a temperature of 101.0. HEENT: Eyes, the sclerae were nonicteric. NECK: Jugular venous distention was not elevated. No lymphadenopathy. CHEST: Full expansion. LUNGS: Adequate airway flow with no wheezes. CARDIOVASCULAR: Regular rate and rhythm with S1, S2, no S3. ABDOMEN: Soft, nontender, nondistended. EXTREMITIES: No clubbing, cyanosis or edema. NEUROLOGIC: The patient was awake, alert, following commands. A detailed neuro exam was not performed. LABORATORY DATA: Labs were reviewed as indicated above. Chest x-ray as indicated above. IMPRESSION: 1. Abnormal x-ray with right upper lobe opacity. 2. Pneumonia. Positive influenza A. 3. Fever secondary to above. 4. Multiple myeloma. 5. Immunocompromised secondary to above. 6. Neutropenia. 7. Sepsis. PLAN: 1. Continue current support with IV antibiotics. 2. IV fluids. 3. We will follow along and make further recommendations. 4. Consult Oncology. I do appreciate the privilege in sharing in the patient's care. ESTRELLA MENCHACA MD DR: ELIZABETH/amara JOB#: [id number] / [id number]
[2018-10-25 03:00] VITALS: BP 115/56
[2018-10-25 07:00] VITALS: BP 138/75
[2018-10-25] MEDS: ONDANSETRON ODT 4 MG TAB.RAPDIS. PO SCH ×3 (07:30→16:30)
[2018-10-25] MEDS ORDERED: PIP/TAZO PER PHARMACY MC PRN (08:15)
[2018-10-25] MEDS ORDERED: PIPERACILLIN/TAZOBACTAM 4.5 GM in IV NORMAL SALINE 100ML 100 ML IV SCH (08:30)
[2018-10-25] MEDS: FLUTICASONE 50MCG/NASAL SPRAY 16GM BOTTLE. NS SCH (09:00)
--- NOTE | 2018-10-25 09:03 | PDOC ---
PROGRESS NOTES Subjective Subjective HPI - f/u of Multiple myeloma, diagnosed on 09/11/2014\ ROS - has cough Objective Objective Vital Signs Date Time Temp Pulse Resp B/P (MAP) Pulse Ox O2 Delivery O2 Flow Rate FiO2 10/25/18 07:00 99.3 72 17 138/75 (96) 98 Room Air 99.3 10/25/18 03:00 2.0 Intake and Output 10/25/18 06:59 Intake Total 2250 ml Balance 2250 ml Intake Oral 2000 ml IV Total 250 ml # Voids 5 Physical Exam General: Alert, Oriented X3, No acute distress HEENT: Atraumatic Neuro: Normal speech Psych/Mental Status: Mental status NL Assessment Assessment Problems Medical Problems: (1) Cough Status: Acute (2) PNA (pneumonia) Status: Acute IMPRESSION AND PLAN: 1. Multiple myeloma, diagnosed on 09/11/2014. She is currently on chemotherapy with Kyprolis. Her most recent treatment was on 10/14/2018. I will defer next cycle by 2 weeks because of underlying pneumonia and influenza A. 2. Pneumonia. Continue management per primary team. Appreciate pulmonary consult. 3. Influenza A. Continue management per primary team. 4. Anemia and leukopenia are new and acute, which is reactive due to underlying infection. Continue to monitor. Comment Review of Relevant I have reviewed the following items astrid (where applicable) has been applied. Labs Laboratory Tests Test 10/23/18 14:20 10/23/18 14:47 10/23/18 15:10 10/23/18 15:58 Urine Collection Type Unknown Urine Color Yellow Urine Clarity Clear Urine pH 7.0 Urine Specific [place] 1.020 Urine Protein Negative mg/dL (NEG-TRACE) Urine Glucose (UA) Negative mg/dL (NEG) Urine Ketones (Stick) Trace mg/dL (NEG) Urine Blood Negative (NEG) Urine Nitrite Negative (NEG) Urine Bilirubin Negative (NEG) Urine Urobilinogen Dipstick 0.2 mg/dL (0.2 mg/dL) Urine Leukocyte Esterase Negative (NEG) Urine RBC 0 /HPF (0-2) Urine WBC Rare /HPF (0-4) Urine Squamous Epithelial Cells Few /LPF Urine Amorphous Sediment Present /HPF Urine Bacteria 0 /HPF (0-FEW) White Blood Count 6.2 x10^3/uL (4.0-11.0) Red Blood Count 3.87 x10^6/uL (3.50-5.40) Hemoglobin 12.4 g/dL (12.0-15.5) Hematocrit 37.2 % (36.0-47.0) Mean Corpuscular Volume 96 fL (79-100) Mean Corpuscular Hemoglobin 32 pg (25-35) Mean Corpuscular Hemoglobin Concent 33 g/dL (31-37) Red Cell Distribution Width 13.7 % (11.5-14.5) Platelet Count 205 x10^3/uL (140-400) Neutrophils (%) (Auto) 79 % (31-73) Lymphocytes (%) (Auto) 7 % (24-48) Monocytes (%) (Auto) 13 % (0-9) Eosinophils (%) (Auto) 0 % (0-3) Basophils (%) (Auto) 0 % (0-3) Neutrophils # (Auto) 4.9 x10^3uL (1.8-7.7) Lymphocytes # (Auto) 0.5 x10^3/uL (1.0-4.8) Monocytes # (Auto) 0.8 x10^3/uL (0.0-1.1) Eosinophils # (Auto) 0.0 x10^3/uL (0.0-0.7) Basophils # (Auto) 0.0 x10^3/uL (0.0-0.2) Sodium Level 134 mmol/L (136-145) Potassium Level 3.7 mmol/L (3.5-5.1) Chloride Level 96 mmol/L (98-107) Carbon Dioxide Level 29 mmol/L (21-32) Anion Gap 9 (6-14) Blood Urea Nitrogen 10 mg/dL (7-20) Creatinine 0.9 mg/dL (0.6-1.0) Estimated GFR (Cockcroft-Gault) 73.3 BUN/Creatinine Ratio 11 (6-20) Glucose Level 114 mg/dL (70-99) Calcium Level 9.0 mg/dL (8.5-10.1) Total Bilirubin 0.6 mg/dL (0.2-1.0) Aspartate Amino Transf (AST/SGOT) 20 U/L (15-37) Alanine Aminotransferase (ALT/SGPT) 21 U/L (14-59) Alkaline Phosphatase 88 U/L (46-116) Total Protein 7.1 g/dL (6.4-8.2) Albumin 3.2 g/dL (3.4-5.0) Albumin/Globulin Ratio 0.8 (1.0-1.7) Influenza Type A Antigen Positive (NEGATIVE) Influenza Type B Antigen Negative (NEGATIVE) Test 10/24/18 03:20 White Blood Count 3.6 x10^3/uL (4.0-11.0) Red Blood Count 3.29 x10^6/uL (3.50-5.40) Hemoglobin 10.6 g/dL (12.0-15.5) Hematocrit 32.1 % (36.0-47.0) Mean Corpuscular Volume 97 fL (79-100) Mean Corpuscular Hemoglobin 32 pg (25-35) Mean Corpuscular Hemoglobin Concent 33 g/dL (31-37) Red Cell Distribution Width 13.7 % (11.5-14.5) Platelet Count 159 x10^3/uL (140-400) Neutrophils (%) (Auto) 69 % (31-73) Lymphocytes (%) (Auto) 13 % (24-48) Monocytes (%) (Auto) 17 % (0-9) Eosinophils (%) (Auto) 0 % (0-3) Basophils (%) (Auto) 1 % (0-3) Neutrophils # (Auto) 2.5 x10^3uL (1.8-7.7) Lymphocytes # (Auto) 0.5 x10^3/uL (1.0-4.8) Monocytes # (Auto) 0.6 x10^3/uL (0.0-1.1) Eosinophils # (Auto) 0.0 x10^3/uL (0.0-0.7) Basophils # (Auto) 0.0 x10^3/uL (0.0-0.2) Sodium Level 137 mmol/L (136-145) Potassium Level 3.4 mmol/L (3.5-5.1) Chloride Level 101 mmol/L (98-107) Carbon Dioxide Level 28 mmol/L (21-32) Anion Gap 8 (6-14) Blood Urea Nitrogen 8 mg/dL (7-20) Creatinine 0.9 mg/dL (0.6-1.0) Estimated GFR (Cockcroft-Gault) 73.3 Glucose Level 89 mg/dL (70-99) Calcium Level 8.1 mg/dL (8.5-10.1) Procalcitonin < 0.10 ng/mL (0.00-0.10) Microbiology 10/23/18 Blood Culture - Preliminary, Resulted NO GROWTH AFTER 1 DAY Medications Current Medications Metoclopramide HCl (Reglan Vial) 10 mg 1X ONCE IV Last administered on at 15:42; Start 10/23/18 at 15:15; Stop 10/23/18 at 15:16; Status DC Sodium Chloride 1,000 ml @ 1,000 mls/hr 1X ONCE IV Last administered on at 15:42; Start 10/23/18 at 15:15; Stop 10/23/18 at 16:14; Status DC Ondansetron HCl (Zofran) 4 mg PRN Q8HRS PRN IV NAUSEA/VOMITING; Start 10/23/18 at 16:00; Stop 10/24/18 at 09:20; Status DC Morphine Sulfate (Morphine Sulfate) 2 mg PRN Q2HR PRN IV PAIN; Start 10/23/18 at 16:00; Stop 10/24/18 at 15:59; Status DC Sodium Chloride 1,000 ml @ 100 mls/hr Q10H IV Last administered on 10/23/18at 17:47; Start 10/23/18 at 15:58; Stop 10/23/18 at 19:57; Status DC Azithromycin 250 ml @ 250 mls/hr 1X ONCE IV Last administered on 10/23/18at 16 :00; Start 10/23/18 at 16:00; Stop 10/23/18 at 16:59; Status DC Ceftriaxone Sodium (Rocephin) 1 gm 1X ONCE IVP Last administered on 10/23/18 16:17; Start 10/23/18 at 16:00; Stop 10/23/18 at 16:08; Status DC Oseltamivir Phosphate (Tamiflu) 75 mg 1X ONCE PO Last administered on 16:58; Start 10/23/18 at 16:45; Stop 10/23/18 at 16:46; Status DC Oseltamivir Phosphate (Tamiflu) 30 mg BID PO Last administered on 10/24/18at 19: 49; Start 10/23/18 at 21:00; Stop 10/28/18 at 20:59 Alprazolam (Xanax) 0.5 mg PRN Q6HRS PRN PO ANXIETY / AGITATION Last administered on 10/23/18 18:20; Start 10/23/18 at 17:30 Aspirin (Ecotrin) 81 mg DAILY PO Last administered on 10/24/18 09:15; Start at 09:00 Docusate Sodium (Colace) 100 mg DAILY PO Last administered on 10/24/18 09:15; Start 10/24/18 at 09:00 Fentanyl (Duragesic 12mcg/ Hr Patch) 1 patch Q3DAYS TD Last administered on 09:16; Start 10/24/18 at 09:00 Gabapentin (Neurontin) 100 mg TID PO Last administered on 10/24/18 19:48; Start 10/23/18 at 21:00 Acetaminophen/ Hydrocodone Bitart (Lortab 5/325) 1 tab PRN Q4HRS PRN PO PAIN; Start 10/23/18 at 17:30 Ondansetron HCl (Zofran Odt) 8 mg TIDAC PO Last administered on 10/24/18 07:36 ; Start 10/24/18 at 07:30 Potassium Chloride (Klor-Con) 10 meq DAILY PO Last administered on 10/24/18 09 :15; Start 10/24/18 at 09:00; Stop 10/25/18 at 08:05; Status DC Acyclovir (Zovirax) 800 mg BID PO Last administered on 10/24/18 19:48; Start 10/23/18 at 21:00 Vitamin D (Vitamin D3) 4,000 unit DAILY PO Last administered on 10/24/18 09:14 ; Start 10/24/18 at 09:00 Cyclobenzaprine HCl (Flexeril) 5 mg TID PO Last administered on 10/24/18 19:49 ; Start 10/23/18 at 21:00 Non-Formulary Medication (Hydrocodone/ Chlorphen P-Stirex (Tussionex Pennkinetic Susp)) 5 ml BID PRN PO COUGH; Start 10/23/18 at 17:30; Stop at 17:52; Status DC Multivitamins (Thera M Plus) 1 tab DAILY PO Last administered on 10/24/18at 09: 14; Start 10/24/18 at 09:00 Prochlorperazine Maleate (Compazine) 10 mg PRN Q6HRS PRN PO NAUSEA/VOMITING; Start 10/23/18 at 17:45 Enoxaparin Sodium (Lovenox 40mg Syringe) 40 mg Q24H SQ Last administered on at 19:51; Start 10/23/18 at 21:00 Ceftriaxone Sodium (Rocephin) 1 gm Q24H IVP Last administered on 10/24/18at 17: 20; Start 10/24/18 at 17:00; Stop 10/25/18 at 08:04; Status DC Azithromycin 250 ml @ 250 mls/hr 1X ONCE IV ; Start 10/23/18 at 20:30; Stop at 21:29; Status UNV Vancomycin HCl (Vanco Per Pharmacy) 1 each PRN DAILY PRN MC SEE COMMENTS Last administered on 10/24/18at 12:36; Start 10/23/18 at 20:30 Sodium Chloride 1,000 ml @ 75 mls/hr 1X ONCE IV Last administered on at 20:59; Start 10/23/18 at 20:30; Stop 10/24/18 at 09:49; Status DC Azithromycin 500 mg/Sodium Chloride 250 ml @ 250 mls/hr 1X ONCE IV Last administered on 10/24/18at 17:20; Start 10/24/18 at 17:00; Stop 10/24/18 at 17:59 ; Status DC Vancomycin HCl 2 gm/Sodium Chloride 500 ml @ 250 mls/hr 1X ONCE IV Last administered on 10/23/18at 21:34; Start 10/23/18 at 21:00; Stop 10/23/18 at 22:59 ; Status DC Vancomycin HCl 1.25 gm/Sodium Chloride 250 ml @ 167 mls/hr Q24H IV Last administered on 10/24/18at 22:20; Start 10/24/18 at 22:00 Vancomycin HCl (Vancomycin Trough Level) 1 each 1X ONCE MC ; Start 10/25/18 at 21:30; Stop 10/25/18 at 21:31 Acetaminophen (Tylenol) 650 mg PRN Q6HRS PRN PO fever Last administered on 10/24at 02:28; Start 10/24/18 at 02:00 Ondansetron HCl (Zofran) 4 mg PRN Q6HRS PRN IV NAUSEA/VOMITING; Start 10/24/18 at 09:30 Potassium Chloride (Klor-Con) 40 meq 1X ONCE PO Last administered on at 09:52; Start 10/24/18 at 10:00; Stop 10/24/18 at 10:01; Status DC Guaifenesin (Robitussin Dm) 10 ml PRN Q6HRS PRN PO COUGH; Start 10/24/18 at 09: 15 Cetirizine HCl (ZyrTEC) 10 mg DAILY PO Last administered on 10/24/18at 09:52; Start 10/24/18 at 10:00 Fluticasone Propionate (Flonase) 2 spray DAILY NS Last administered on at 09:53; Start 10/24/18 at 10:00 Diphenhydramine HCl (Benadryl) 25 mg PRN QHS PRN PO INSOMNIA; Start 10/24/18 at 09:15 Piperacillin Sod/ Tazobactam Sod (Zosyn Per Pharmacy) 1 each PRN DAILY PRN MC SEE COMMENTS; Start 10/25/18 at 08:15 Potassium Chloride (Klor-Con) 20 meq DAILYWBKFT PO ; Start 10/25/18 at 09:00 Piperacillin Sod/ Tazobactam Sod 4.5 gm/Sodium Chloride 100 ml @ 200 mls/hr Q6HRS IV ; Start 10/25/18 at 08:30 Active Scripts Active Medrol (Methylprednisolone) 4 Mg Tab.ds.pk 1 Pkg PO UD Cyclobenzaprine Hcl 5 Mg Tablet 1 Tab PO TID Zithromax (Azithromycin) 250 Mg Tablet 1 Pkg PO UD Tussionex Pennkinetic Susp (Hydrocodone/Chlorphen P-Stirex) 115 Ml Julianne.er.12h 5 Ml PO BID PRN Compazine (Prochlorperazine Maleate) 10 Mg Tablet 10 Mg PO PRN Q6HRS PRN Zofran Odt (Ondansetron) 4 Mg Tab.rapdis 8 Mg PO TIDAC Reported Potassium Chloride 10 Meq Tab.sr.24h 10 Meq PO DAILY Multivitamins (Multivitamin) 1 Each Tablet 1 Tab PO DAILY [place] 5-325 Tablet (Acetaminophen/Hydrocodone Bitart) 1 Each Tablet 1 Tab PO PRN Q4HRS PRN Gabapentin (Gabapentin) 100 Mg Capsule 100 Mg PO TID DURAGESIC 12mcg/hr (Fentanyl) 1 Each Patch.td72 1 Patch TP Q3DAYS Colace (Docusate Sodium) 100 Mg Capsule 1 Cap PO DAILY Aspir 81 (Aspirin) 81 Mg Tablet. 1 Tab PO DAILY Xanax (Alprazolam) 0.5 Mg Tablet 0.5 Mg PO PRN Q6HRS PRN Acyclovir 800 Mg Tablet 1 Tab PO BID Vitamin D3 (Cholecalciferol (Vitamin D3)) 4,000 Unit Capsule 4,000 Unit PO DAILY Vitals/I & O Vital Sign - Last 24 Hours 10/24/18 10/24/18 10/24/18 10/24/18 09:16 11:00 13:32 15:00 Temp 96.7 99.9 96.7 99.9 Pulse 67 71 Resp 18 18 B/P (MAP) 134/76 (95) 130/61 (84) Pulse Ox 93 97 O2 Delivery Room Air Room Air Room Air Room Air 10/24/18 10/24/18 10/24/18 10/24/18 19:00 20:00 23:00 23:38 Temp 100.9 100.3 100.9 100.3 Pulse 80 73 Resp 18 18 B/P (MAP) 125/62 (83) 130/59 (82) Pulse Ox 98 88 99 O2 Delivery Room Air Room Air Room Air Nasal Cannula O2 Flow Rate 2.0 10/25/18 10/25/18 03:00 07:00 Temp 99.6 99.3 99.6 99.3 Pulse 55 72 Resp 18 17 B/P (MAP) 115/56 (75) 138/75 (96) Pulse Ox 97 98 O2 Delivery Nasal Cannula Room Air O2 Flow Rate 2.0 Intake and Output 10/24/18 10/24/18 10/25/18 14:59 22:59 06:59 Intake Total 1000 ml 1000 ml 250 ml Balance 1000 ml 1000 ml 250 ml JERMAN MATA MD Oct 25, 2018 09:03
[2018-10-25] MEDS: DOCUSATE SODIUM 100 MG CAPSULE. PO SCH (09:14)
[2018-10-25] MEDS: MULTIVITAMIN with MINERAL TABLET. PO SCH (09:15)
[2018-10-25] MEDS: OSELTAMIVIR 30 MG CAPSULE PO SCH ×2 (09:15→20:35)
[2018-10-25] MEDS: CHOLECALCIFEROL (VITAMIN D3) 1,000 UNIT TABLET PO SCH (09:15)
[2018-10-25] MEDS: ACYCLOVIR 200 MG CAPSULE. PO SCH ×2 (09:15→20:35)
[2018-10-25] MEDS: CETIRIZINE HCL 10 MG TABLET. PO SCH (09:15)
[2018-10-25] MEDS: GABAPENTIN 100 MG CAPSULE. PO SCH ×3 (09:15→20:35)
[2018-10-25] MEDS: ASPIRIN ENTERIC COATED 81 MG TABLET.DR. PO SCH (09:21)
[2018-10-25] MEDS: CYCLOBENZAPRINE 10 MG TABLET. PO SCH ×3 (09:22→20:36)
[2018-10-25] MEDS: POTASSIUM CHLORIDE 20 MEQ TABLET.ER. PO SCH (09:23)
--- NOTE | 2018-10-25 09:27 | PDOC ---
PULMONARY PROGRESS NOTES Subjective PT BETTER TODAY LESS SOA Vitals Vital Signs Date Time Temp Pulse Resp B/P (MAP) Pulse Ox O2 Delivery O2 Flow Rate FiO2 10/25/18 07:00 99.3 72 17 138/75 (96) 98 Room Air 99.3 10/25/18 03:00 2.0 ROS: No Nausea, No Chest Pain, No Abdominal Pain, No Increase Cough General: Alert Lungs: Clear Cardiovascular: S1, S2 Abdomen: Soft Neuro Exam: Alert Extremities: No Edema Skin: Warm Labs Laboratory Tests Test 10/23/18 14:20 10/23/18 14:47 10/23/18 15:10 10/23/18 15:58 Urine Collection Type Unknown Urine Color Yellow Urine Clarity Clear Urine pH 7.0 Urine Specific [place] 1.020 Urine Protein Negative mg/dL (NEG-TRACE) Urine Glucose (UA) Negative mg/dL (NEG) Urine Ketones (Stick) Trace mg/dL (NEG) Urine Blood Negative (NEG) Urine Nitrite Negative (NEG) Urine Bilirubin Negative (NEG) Urine Urobilinogen Dipstick 0.2 mg/dL (0.2 mg/dL) Urine Leukocyte Esterase Negative (NEG) Urine RBC 0 /HPF (0-2) Urine WBC Rare /HPF (0-4) Urine Squamous Epithelial Cells Few /LPF Urine Amorphous Sediment Present /HPF Urine Bacteria 0 /HPF (0-FEW) White Blood Count 6.2 x10^3/uL (4.0-11.0) Red Blood Count 3.87 x10^6/uL (3.50-5.40) Hemoglobin 12.4 g/dL (12.0-15.5) Hematocrit 37.2 % (36.0-47.0) Mean Corpuscular Volume 96 fL (79-100) Mean Corpuscular Hemoglobin 32 pg (25-35) Mean Corpuscular Hemoglobin Concent 33 g/dL (31-37) Red Cell Distribution Width 13.7 % (11.5-14.5) Platelet Count 205 x10^3/uL (140-400) Neutrophils (%) (Auto) 79 % (31-73) Lymphocytes (%) (Auto) 7 % (24-48) Monocytes (%) (Auto) 13 % (0-9) Eosinophils (%) (Auto) 0 % (0-3) Basophils (%) (Auto) 0 % (0-3) Neutrophils # (Auto) 4.9 x10^3uL (1.8-7.7) Lymphocytes # (Auto) 0.5 x10^3/uL (1.0-4.8) Monocytes # (Auto) 0.8 x10^3/uL (0.0-1.1) Eosinophils # (Auto) 0.0 x10^3/uL (0.0-0.7) Basophils # (Auto) 0.0 x10^3/uL (0.0-0.2) Sodium Level 134 mmol/L (136-145) Potassium Level 3.7 mmol/L (3.5-5.1) Chloride Level 96 mmol/L (98-107) Carbon Dioxide Level 29 mmol/L (21-32) Anion Gap 9 (6-14) Blood Urea Nitrogen 10 mg/dL (7-20) Creatinine 0.9 mg/dL (0.6-1.0) Estimated GFR (Cockcroft-Gault) 73.3 BUN/Creatinine Ratio 11 (6-20) Glucose Level 114 mg/dL (70-99) Calcium Level 9.0 mg/dL (8.5-10.1) Total Bilirubin 0.6 mg/dL (0.2-1.0) Aspartate Amino Transf (AST/SGOT) 20 U/L (15-37) Alanine Aminotransferase (ALT/SGPT) 21 U/L (14-59) Alkaline Phosphatase 88 U/L (46-116) Total Protein 7.1 g/dL (6.4-8.2) Albumin 3.2 g/dL (3.4-5.0) Albumin/Globulin Ratio 0.8 (1.0-1.7) Influenza Type A Antigen Positive (NEGATIVE) Influenza Type B Antigen Negative (NEGATIVE) Test 10/24/18 03:20 White Blood Count 3.6 x10^3/uL (4.0-11.0) Red Blood Count 3.29 x10^6/uL (3.50-5.40) Hemoglobin 10.6 g/dL (12.0-15.5) Hematocrit 32.1 % (36.0-47.0) Mean Corpuscular Volume 97 fL (79-100) Mean Corpuscular Hemoglobin 32 pg (25-35) Mean Corpuscular Hemoglobin Concent 33 g/dL (31-37) Red Cell Distribution Width 13.7 % (11.5-14.5) Platelet Count 159 x10^3/uL (140-400) Neutrophils (%) (Auto) 69 % (31-73) Lymphocytes (%) (Auto) 13 % (24-48) Monocytes (%) (Auto) 17 % (0-9) Eosinophils (%) (Auto) 0 % (0-3) Basophils (%) (Auto) 1 % (0-3) Neutrophils # (Auto) 2.5 x10^3uL (1.8-7.7) Lymphocytes # (Auto) 0.5 x10^3/uL (1.0-4.8) Monocytes # (Auto) 0.6 x10^3/uL (0.0-1.1) Eosinophils # (Auto) 0.0 x10^3/uL (0.0-0.7) Basophils # (Auto) 0.0 x10^3/uL (0.0-0.2) Sodium Level 137 mmol/L (136-145) Potassium Level 3.4 mmol/L (3.5-5.1) Chloride Level 101 mmol/L (98-107) Carbon Dioxide Level 28 mmol/L (21-32) Anion Gap 8 (6-14) Blood Urea Nitrogen 8 mg/dL (7-20) Creatinine 0.9 mg/dL (0.6-1.0) Estimated GFR (Cockcroft-Gault) 73.3 Glucose Level 89 mg/dL (70-99) Calcium Level 8.1 mg/dL (8.5-10.1) Procalcitonin < 0.10 ng/mL (0.00-0.10) Medications Active Scripts Medications Dose Route/Sig Max Daily Dose Days Date Category Medrol (Methylprednisolone) 4 Mg Tab.ds.pk 1 Pkg PO UD 01/21/18 Rx Cyclobenzaprine Hcl 5 Mg Tablet 1 Tab PO TID 01/21/18 Rx Zithromax (Azithromycin) 250 Mg Tablet 1 Pkg PO UD 01/08/18 Rx Tussionex Pennkinetic Susp (Hydrocodone/Chlorphen P-Stirex) 115 Ml Julianne.er.12h 5 Ml PO BID PRN 01/08/18 Rx Potassium Chloride 10 Meq Tab.sr.24h 10 Meq PO DAILY 09/07/17 Reported Multivitamins (Multivitamin) 1 Each Tablet 1 Tab PO DAILY 09/07/17 Reported [place] 5-325 Tablet (Acetaminophen/Hydrocodone Bitart) 1 Each Tablet 1 Tab PO PRN Q4HRS PRN 09/07/17 Reported Gabapentin (Gabapentin) 100 Mg Capsule 100 Mg PO TID 09/07/17 Reported DURAGESIC 12mcg/hr (Fentanyl) 1 Each Patch.td72 1 Patch TP Q3DAYS 09/07/17 Reported Colace (Docusate Sodium) 100 Mg Capsule 1 Cap PO DAILY 09/07/17 Reported Aspir 81 (Aspirin) 81 Mg Tablet. 1 Tab PO DAILY 09/07/17 Reported Xanax (Alprazolam) 0.5 Mg Tablet 0.5 Mg PO PRN Q6HRS PRN 09/07/17 Reported Acyclovir 800 Mg Tablet 1 Tab PO BID 09/07/17 Reported Vitamin D3 (Cholecalciferol (Vitamin D3)) 4,000 Unit Capsule 4,000 Unit PO DAILY 09/07/17 Reported Compazine (Prochlorperazine Maleate) 10 Mg Tablet 10 Mg PO PRN Q6HRS PRN 09/15/14 Rx Zofran Odt (Ondansetron) 4 Mg Tab.rapdis 8 Mg PO TIDAC 09/15/14 Rx Impression . IMPRESSION: 1. Abnormal x-ray with right upper lobe opacity. 2. Pneumonia. Positive influenza A. 3. Fever secondary to above. 4. Multiple myeloma. 5. Immunocompromised secondary to above. 6. Neutropenia. 7. Sepsis. NOTE FROM DR MATA IMPRESSION AND PLAN: 1. Multiple myeloma, diagnosed on 09/11/2014. She is currently on chemotherapy with Kyprolis. Her most recent treatment was on 10/14/2018. I will defer next cycle by 2 weeks because of underlying pneumonia and influenza A. 2. Pneumonia. Continue management per primary team. Appreciate pulmonary consult. 3. Influenza A. Continue management per primary team. 4. Anemia and leukopenia are new and acute, which is reactive due to underlying infection. Continue to monitor. Plan . HOME IN AM OK BY ME FOLLOW UP IN OFFICE 6MW ESTRELLA MENCHACA MD Oct 25, 2018 09:27
[2018-10-25 10:52] VITALS: BP 124/59
--- NOTE | 2018-10-25 11:10 | PDOC ---
PROGRESS NOTES Chief Complaint Chief Complaint PNA in an immunocompromised Sepsis possible gram-positive gram-negative PNA Multiple myeloma on chemotherapy 3 years-gets chemotherapy twice a month Influenza A Hypoxic respiratory failure in the background of above Obesity, BMI 33 sees MIld hypokalemia 3.4 Neutropenia 3.6 Thrombocytopenia mild with no bleeding Fevers Sepsis Herpes? 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 Vitals Vitals Vital Signs Date Time Temp Pulse Resp B/P (MAP) Pulse Ox O2 Delivery O2 Flow Rate FiO2 10/25/18 10:52 98.3 61 18 124/59 (80) 94 Room Air 98.3 10/25/18 03:00 2.0 Physical Exam General: Alert, Oriented X3, No acute distress Heart: Regular rate, Normal S1, Normal S2 Lungs: Clear, Other (symmetric chest expansion, diminished, no wheezing) Abdomen: Normal bowel sounds, Soft Extremities: No clubbing, No cyanosis, No edema Skin: No rashes, No breakdown, No significant lesion Review of Systems Review of Systems A 14 point ROS was completed with the following noted as positive: Other systems reviewed and negative. \CONSTITUTIONAL: No fever or chills EYES: No recent changes SKIN: No rash or itching CARDIOVASCULAR: No chest pain, syncope, palpitations, or edema RESPIRATORY: No SOB or cough GASTROINTESTINAL: No nausea, vomiting or abdominal pain NEUROLOGICAL: No headaches or weakness ENDOCRINE: No cold or heat intolerance GENITOURINARY: No urgency or frequency of urination MUSCULOSKELETAL: No back pain or joint pain LYMPHATICS: No enlarged lymph nodes PSYCHIATRIC: No anxiety or depression Assessment and Plan Assessmemt and Plan Problems Medical Problems: (1) Cough Status: Acute (2) PNA (pneumonia) Status: Acute Comment Review of Relevant I have reviewed the following items astrid (where applicable) has been applied. Labs Laboratory Tests Test 10/23/18 14:20 10/23/18 14:47 10/23/18 15:10 10/23/18 15:58 Urine Collection Type Unknown Urine Color Yellow Urine Clarity Clear Urine pH 7.0 Urine Specific [place] 1.020 Urine Protein Negative mg/dL (NEG-TRACE) Urine Glucose (UA) Negative mg/dL (NEG) Urine Ketones (Stick) Trace mg/dL (NEG) Urine Blood Negative (NEG) Urine Nitrite Negative (NEG) Urine Bilirubin Negative (NEG) Urine Urobilinogen Dipstick 0.2 mg/dL (0.2 mg/dL) Urine Leukocyte Esterase Negative (NEG) Urine RBC 0 /HPF (0-2) Urine WBC Rare /HPF (0-4) Urine Squamous Epithelial Cells Few /LPF Urine Amorphous Sediment Present /HPF Urine Bacteria 0 /HPF (0-FEW) White Blood Count 6.2 x10^3/uL (4.0-11.0) Red Blood Count 3.87 x10^6/uL (3.50-5.40) Hemoglobin 12.4 g/dL (12.0-15.5) Hematocrit 37.2 % (36.0-47.0) Mean Corpuscular Volume 96 fL (79-100) Mean Corpuscular Hemoglobin 32 pg (25-35) Mean Corpuscular Hemoglobin Concent 33 g/dL (31-37) Red Cell Distribution Width 13.7 % (11.5-14.5) Platelet Count 205 x10^3/uL (140-400) Neutrophils (%) (Auto) 79 % (31-73) Lymphocytes (%) (Auto) 7 % (24-48) Monocytes (%) (Auto) 13 % (0-9) Eosinophils (%) (Auto) 0 % (0-3) Basophils (%) (Auto) 0 % (0-3) Neutrophils # (Auto) 4.9 x10^3uL (1.8-7.7) Lymphocytes # (Auto) 0.5 x10^3/uL (1.0-4.8) Monocytes # (Auto) 0.8 x10^3/uL (0.0-1.1) Eosinophils # (Auto) 0.0 x10^3/uL (0.0-0.7) Basophils # (Auto) 0.0 x10^3/uL (0.0-0.2) Sodium Level 134 mmol/L (136-145) Potassium Level 3.7 mmol/L (3.5-5.1) Chloride Level 96 mmol/L (98-107) Carbon Dioxide Level 29 mmol/L (21-32) Anion Gap 9 (6-14) Blood Urea Nitrogen 10 mg/dL (7-20) Creatinine 0.9 mg/dL (0.6-1.0) Estimated GFR (Cockcroft-Gault) 73.3 BUN/Creatinine Ratio 11 (6-20) Glucose Level 114 mg/dL (70-99) Calcium Level 9.0 mg/dL (8.5-10.1) Total Bilirubin 0.6 mg/dL (0.2-1.0) Aspartate Amino Transf (AST/SGOT) 20 U/L (15-37) Alanine Aminotransferase (ALT/SGPT) 21 U/L (14-59) Alkaline Phosphatase 88 U/L (46-116) Total Protein 7.1 g/dL (6.4-8.2) Albumin 3.2 g/dL (3.4-5.0) Albumin/Globulin Ratio 0.8 (1.0-1.7) Influenza Type A Antigen Positive (NEGATIVE) Influenza Type B Antigen Negative (NEGATIVE) Test 10/24/18 03:20 White Blood Count 3.6 x10^3/uL (4.0-11.0) Red Blood Count 3.29 x10^6/uL (3.50-5.40) Hemoglobin 10.6 g/dL (12.0-15.5) Hematocrit 32.1 % (36.0-47.0) Mean Corpuscular Volume 97 fL (79-100) Mean Corpuscular Hemoglobin 32 pg (25-35) Mean Corpuscular Hemoglobin Concent 33 g/dL (31-37) Red Cell Distribution Width 13.7 % (11.5-14.5) Platelet Count 159 x10^3/uL (140-400) Neutrophils (%) (Auto) 69 % (31-73) Lymphocytes (%) (Auto) 13 % (24-48) Monocytes (%) (Auto) 17 % (0-9) Eosinophils (%) (Auto) 0 % (0-3) Basophils (%) (Auto) 1 % (0-3) Neutrophils # (Auto) 2.5 x10^3uL (1.8-7.7) Lymphocytes # (Auto) 0.5 x10^3/uL (1.0-4.8) Monocytes # (Auto) 0.6 x10^3/uL (0.0-1.1) Eosinophils # (Auto) 0.0 x10^3/uL (0.0-0.7) Basophils # (Auto) 0.0 x10^3/uL (0.0-0.2) Sodium Level 137 mmol/L (136-145) Potassium Level 3.4 mmol/L (3.5-5.1) Chloride Level 101 mmol/L (98-107) Carbon Dioxide Level 28 mmol/L (21-32) Anion Gap 8 (6-14) Blood Urea Nitrogen 8 mg/dL (7-20) Creatinine 0.9 mg/dL (0.6-1.0) Estimated GFR (Cockcroft-Gault) 73.3 Glucose Level 89 mg/dL (70-99) Calcium Level 8.1 mg/dL (8.5-10.1) Procalcitonin < 0.10 ng/mL (0.00-0.10) Microbiology 10/23/18 Blood Culture - Preliminary, Resulted NO GROWTH AFTER 1 DAY Medications Current Medications Metoclopramide HCl (Reglan Vial) 10 mg 1X ONCE IV Last administered on at 15:42; Start 10/23/18 at 15:15; Stop 10/23/18 at 15:16; Status DC Sodium Chloride 1,000 ml @ 1,000 mls/hr 1X ONCE IV Last administered on at 15:42; Start 10/23/18 at 15:15; Stop 10/23/18 at 16:14; Status DC Ondansetron HCl (Zofran) 4 mg PRN Q8HRS PRN IV NAUSEA/VOMITING; Start 10/23/18 at 16:00; Stop 10/24/18 at 09:20; Status DC Morphine Sulfate (Morphine Sulfate) 2 mg PRN Q2HR PRN IV PAIN; Start 10/23/18 at 16:00; Stop 10/24/18 at 15:59; Status DC Sodium Chloride 1,000 ml @ 100 mls/hr Q10H IV Last administered on 10/23/18at 17:47; Start 10/23/18 at 15:58; Stop 10/23/18 at 19:57; Status DC Azithromycin 250 ml @ 250 mls/hr 1X ONCE IV Last administered on 10/23/18 16 :00; Start 10/23/18 at 16:00; Stop 10/23/18 at 16:59; Status DC Ceftriaxone Sodium (Rocephin) 1 gm 1X ONCE IVP Last administered on 10/23/18 16:17; Start 10/23/18 at 16:00; Stop 10/23/18 at 16:08; Status DC Oseltamivir Phosphate (Tamiflu) 75 mg 1X ONCE PO Last administered on 16:58; Start 10/23/18 at 16:45; Stop 10/23/18 at 16:46; Status DC Oseltamivir Phosphate (Tamiflu) 30 mg BID PO Last administered on 10/25/18 09: 15; Start 10/23/18 at 21:00; Stop 10/28/18 at 20:59 Alprazolam (Xanax) 0.5 mg PRN Q6HRS PRN PO ANXIETY / AGITATION Last administered on 10/23/18 18:20; Start 10/23/18 at 17:30 Aspirin (Ecotrin) 81 mg DAILY PO Last administered on 10/25/18 09:21; Start at 09:00 Docusate Sodium (Colace) 100 mg DAILY PO Last administered on 10/25/18 09:14; Start 10/24/18 at 09:00 Fentanyl (Duragesic 12mcg/ Hr Patch) 1 patch Q3DAYS TD Last administered on 09:16; Start 10/24/18 at 09:00 Gabapentin (Neurontin) 100 mg TID PO Last administered on 10/25/18 09:15; Start 10/23/18 at 21:00 Acetaminophen/ Hydrocodone Bitart (Lortab 5/325) 1 tab PRN Q4HRS PRN PO PAIN; Start 10/23/18 at 17:30 Ondansetron HCl (Zofran Odt) 8 mg TIDAC PO Last administered on 10/24/18at 07:36 ; Start 10/24/18 at 07:30 Potassium Chloride (Klor-Con) 10 meq DAILY PO Last administered on 10/24/18 09 :15; Start 10/24/18 at 09:00; Stop 10/25/18 at 08:05; Status DC Acyclovir (Zovirax) 800 mg BID PO Last administered on 10/25/18 09:15; Start 10/23/18 at 21:00 Vitamin D (Vitamin D3) 4,000 unit DAILY PO Last administered on 10/25/18 09:15 ; Start 10/24/18 at 09:00 Cyclobenzaprine HCl (Flexeril) 5 mg TID PO Last administered on 10/25/18 09:22 ; Start 10/23/18 at 21:00 Non-Formulary Medication (Hydrocodone/ Chlorphen P-Stirex (Tussionex Pennkinetic Susp)) 5 ml BID PRN PO COUGH; Start 10/23/18 at 17:30; Stop at 17:52; Status DC Multivitamins (Thera M Plus) 1 tab DAILY PO Last administered on 10/25/18 09: 15; Start 10/24/18 at 09:00 Prochlorperazine Maleate (Compazine) 10 mg PRN Q6HRS PRN PO NAUSEA/VOMITING; Start 10/23/18 at 17:45 Enoxaparin Sodium (Lovenox 40mg Syringe) 40 mg Q24H SQ Last administered on 19:51; Start 10/23/18 at 21:00 Ceftriaxone Sodium (Rocephin) 1 gm Q24H IVP Last administered on 10/24/18 17: 20; Start 10/24/18 at 17:00; Stop 10/25/18 at 08:04; Status DC Azithromycin 250 ml @ 250 mls/hr 1X ONCE IV ; Start 10/23/18 at 20:30; Stop at 21:29; Status UNV Vancomycin HCl (Vanco Per Pharmacy) 1 each PRN DAILY PRN MC SEE COMMENTS Last administered on 10/24/18at 12:36; Start 10/23/18 at 20:30 Sodium Chloride 1,000 ml @ 75 mls/hr 1X ONCE IV Last administered on at 20:59; Start 10/23/18 at 20:30; Stop 10/24/18 at 09:49; Status DC Azithromycin 500 mg/Sodium Chloride 250 ml @ 250 mls/hr 1X ONCE IV Last administered on 10/24/18at 17:20; Start 10/24/18 at 17:00; Stop 10/24/18 at 17:59 ; Status DC Vancomycin HCl 2 gm/Sodium Chloride 500 ml @ 250 mls/hr 1X ONCE IV Last administered on 10/23/18at 21:34; Start 10/23/18 at 21:00; Stop 10/23/18 at 22:59 ; Status DC Vancomycin HCl 1.25 gm/Sodium Chloride 250 ml @ 167 mls/hr Q24H IV Last administered on 10/24/18at 22:20; Start 10/24/18 at 22:00 Vancomycin HCl (Vancomycin Trough Level) 1 each 1X ONCE MC ; Start 10/25/18 at 21:30; Stop 10/25/18 at 21:31 Acetaminophen (Tylenol) 650 mg PRN Q6HRS PRN PO fever Last administered on 10/24at 02:28; Start 10/24/18 at 02:00 Ondansetron HCl (Zofran) 4 mg PRN Q6HRS PRN IV NAUSEA/VOMITING; Start 10/24/18 at 09:30 Potassium Chloride (Klor-Con) 40 meq 1X ONCE PO Last administered on at 09:52; Start 10/24/18 at 10:00; Stop 10/24/18 at 10:01; Status DC Guaifenesin (Robitussin Dm) 10 ml PRN Q6HRS PRN PO COUGH; Start 10/24/18 at 09: 15 Cetirizine HCl (ZyrTEC) 10 mg DAILY PO Last administered on 10/25/18at 09:15; Start 10/24/18 at 10:00 Fluticasone Propionate (Flonase) 2 spray DAILY NS Last administered on at 09:53; Start 10/24/18 at 10:00 Diphenhydramine HCl (Benadryl) 25 mg PRN QHS PRN PO INSOMNIA; Start 10/24/18 at 09:15 Piperacillin Sod/ Tazobactam Sod (Zosyn Per Pharmacy) 1 each PRN DAILY PRN MC SEE COMMENTS; Start 10/25/18 at 08:15 Potassium Chloride (Klor-Con) 20 meq DAILYWBKFT PO Last administered on at 09:23; Start 10/25/18 at 09:00 Piperacillin Sod/ Tazobactam Sod 4.5 gm/Sodium Chloride 100 ml @ 200 mls/hr Q6HRS IV Last administered on 10/25/18at 09:22; Start 10/25/18 at 08:30 Active Scripts Active Medrol (Methylprednisolone) 4 Mg Tab.ds.pk 1 Pkg PO UD Cyclobenzaprine Hcl 5 Mg Tablet 1 Tab PO TID Zithromax (Azithromycin) 250 Mg Tablet 1 Pkg PO UD Tussionex Pennkinetic Susp (Hydrocodone/Chlorphen P-Stirex) 115 Ml Julianne.er.12h 5 Ml PO BID PRN Compazine (Prochlorperazine Maleate) 10 Mg Tablet 10 Mg PO PRN Q6HRS PRN Zofran Odt (Ondansetron) 4 Mg Tab.rapdis 8 Mg PO TIDAC Reported Potassium Chloride 10 Meq Tab.sr.24h 10 Meq PO DAILY Multivitamins (Multivitamin) 1 Each Tablet 1 Tab PO DAILY [place] 5-325 Tablet (Acetaminophen/Hydrocodone Bitart) 1 Each Tablet 1 Tab PO PRN Q4HRS PRN Gabapentin (Gabapentin) 100 Mg Capsule 100 Mg PO TID DURAGESIC 12mcg/hr (Fentanyl) 1 Each Patch.td72 1 Patch TP Q3DAYS Colace (Docusate Sodium) 100 Mg Capsule 1 Cap PO DAILY Aspir 81 (Aspirin) 81 Mg Tablet.dr 1 Tab PO DAILY Xanax (Alprazolam) 0.5 Mg Tablet 0.5 Mg PO PRN Q6HRS PRN Acyclovir 800 Mg Tablet 1 Tab PO BID Vitamin D3 (Cholecalciferol (Vitamin D3)) 4,000 Unit Capsule 4,000 Unit PO DAILY Vitals/I & O Vital Sign - Last 24 Hours 10/24/18 10/24/18 10/24/18 10/24/18 13:32 15:00 19:00 20:00 Temp 99.9 100.9 99.9 100.9 Pulse 71 80 Resp 18 18 B/P (MAP) 130/61 (84) 125/62 (83) Pulse Ox 97 98 O2 Delivery Room Air Room Air Room Air Room Air 10/24/18 10/24/18 10/25/1826/19 23:00 23:38 03:00 07:00 Temp 100.3 99.6 99.3 100.3 99.6 99.3 Pulse 73 55 72 Resp 18 18 17 B/P (MAP) 130/59 (82) 115/56 (75) 138/75 (96) Pulse Ox 88 99 97 98 O2 Delivery Room Air Nasal Cannula Nasal Cannula Room Air O2 Flow Rate 2.0 2.0 10/25/18 10/25/18 08:00 10:52 Temp 98.3 98.3 Pulse 61 Resp 18 B/P (MAP) 124/59 (80) Pulse Ox 94 O2 Delivery Room Air Room Air Intake and Output 10/24/18 10/24/18 10/25/18 15:00 23:00 07:00 Intake Total 1000 ml 1000 ml 250 ml Balance 1000 ml 1000 ml 250 ml ASAD ACOSTA MD Oct 25, 2018 11:10
--- NOTE | 2018-10-25 12:59 | PDOC ---
Infectious Disease Note Subjective: Subjective pt seen and examined consult dictated [id number] ROS: ROS Negative except for above. Vital Signs: Vital Signs Vital Signs Date Time Temp Pulse Resp B/P (MAP) Pulse Ox O2 Delivery O2 Flow Rate FiO2 10/25/18 10:52 98.3 61 18 124/59 (80) 94 Room Air 98.3 10/25/18 03:00 2.0 Medications: Inpatient Meds: Current Medications Medications (Trade) Dose Ordered Sig/Katrin Start Time Stop Time Status Last Admin Dose Admin Acetaminophen (Tylenol) 650 mg PRN Q6HRS PRN 10/24/18 02:00 10/24/18 02:28 650 MG Acetaminophen/ Hydrocodone Bitart (Lortab 5/325) 1 tab PRN Q4HRS PRN 10/23/18 17:30 Acyclovir (Zovirax) 800 mg BID 10/23/18 21:00 10/25/18 09:15 800 MG Alprazolam (Xanax) 0.5 mg PRN Q6HRS PRN 10/23/18 17:30 10/23/18 18:20 0.5 MG Aspirin (Ecotrin) 81 mg DAILY 10/24/18 09:00 10/25/18 09:21 81 MG Azithromycin 250 ml @ 250 mls/hr 1X ONCE 10/23/18 20:30 10/23/18 21:29 UNV Azithromycin 500 mg/Sodium Chloride 250 ml @ 250 mls/hr 1X ONCE 10/24/18 17:00 10/24/18 17:59 DC 10/24/18 17:20 250 MLS/HR Ceftriaxone Sodium (Rocephin) 1 gm Q24H 10/24/18 17:00 10/25/18 08:04 DC 10/24/18 17:20 1 GM Cetirizine HCl (ZyrTEC) 10 mg DAILY 10/24/18 10:00 10/25/18 09:15 10 MG Cyclobenzaprine HCl (Flexeril) 5 mg TID 10/23/18 21:00 10/25/18 09:22 5 MG Diphenhydramine HCl (Benadryl) 25 mg PRN QHS PRN 10/24/18 09:15 Docusate Sodium (Colace) 100 mg DAILY 10/24/18 09:00 10/25/18 09:14 100 MG Enoxaparin Sodium (Lovenox 40mg Syringe) 40 mg Q24H 10/23/18 21:00 10/24/18 19:51 40 MG Fentanyl (Duragesic 12mcg/ Hr Patch) 1 patch Q3DAYS 10/24/18 09:00 10/24/18 09:16 1 PATCH Fluticasone Propionate (Flonase) 2 spray DAILY 10/24/18 10:00 10/24/18 09:53 2 SPRAY Gabapentin (Neurontin) 100 mg TID 10/23/18 21:00 10/25/18 09:15 100 MG Guaifenesin (Robitussin Dm) 10 ml PRN Q6HRS PRN 10/24/18 09:15 Metoclopramide HCl (Reglan Vial) 10 mg 1X ONCE 10/23/18 15:15 10/23/18 15:16 DC 10/23/18 15:42 10 MG Morphine Sulfate (Morphine Sulfate) 2 mg PRN Q2HR PRN 10/23/18 16:00 10/24/18 15:59 DC Multivitamins (Thera M Plus) 1 tab DAILY 10/24/18 09:00 10/25/18 09:15 1 TAB Non-Formulary Medication (Hydrocodone/ Chlorphen P-Stirex (Tussionex Pennkinetic Susp)) 5 ml BID PRN 10/23/18 17:30 10/23/18 17:52 DC Ondansetron HCl (Zofran Odt) 8 mg TIDAC 10/24/18 07:30 10/24/18 07:36 8 MG Ondansetron HCl (Zofran) 4 mg PRN Q6HRS PRN 10/24/18 09:30 Oseltamivir Phosphate (Tamiflu) 30 mg BID 10/23/18 21:00 10/28/18 20:59 10/25/18 09:15 30 MG Piperacillin Sod/ Tazobactam Sod (Zosyn Per Pharmacy) 1 each PRN DAILY PRN 10/25/18 08:15 Piperacillin Sod/ Tazobactam Sod 4.5 gm/Sodium Chloride 100 ml @ 200 mls/hr Q6HRS 10/25/18 08:30 10/25/18 09:22 200 MLS/HR Potassium Chloride (Klor-Con) 20 meq [id number] 10/25/18 09:00 10/25/18 09:23 20 MEQ Prochlorperazine Maleate (Compazine) 10 mg PRN Q6HRS PRN 10/23/18 17:45 Sodium Chloride 1,000 ml @ 75 mls/hr 1X ONCE 10/23/18 20:30 10/24/18 09:49 DC 10/23/18 20:59 75 MLS/HR Vancomycin HCl (Vanco Per Pharmacy) 1 each PRN DAILY PRN 10/23/18 20:30 10/24/18 12:36 1 EACH Vancomycin HCl (Vancomycin Trough Level) 1 each 1X ONCE 10/25/18 21:30 10/25/18 21:31 Vancomycin HCl 1.25 gm/Sodium Chloride 250 ml @ 167 mls/hr Q24H 10/24/18 22:00 10/24/18 22:20 167 MLS/HR Vancomycin HCl 2 gm/Sodium Chloride 500 ml @ 250 mls/hr 1X ONCE 10/23/18 21:00 10/23/18 22:59 DC 10/23/18 21:34 250 MLS/HR Vitamin D (Vitamin D3) 4,000 unit DAILY 10/24/18 09:00 10/25/18 09:15 4,000 UNIT Objective: Assessment: Influenza A Pneumonia MM on chemotx Plan: Plan of Care Augmentin and doxycycline if stable ,agree for dc tomorrow KATJA ALCAZAR MD Oct 25, 2018 12:59
[2018-10-25 15:00] VITALS: BP 112/46
[2018-10-25 19:00] VITALS: BP 115/62
[2018-10-25] MEDS: AMOXICILLIN/K CLAV 875/125MG TABLET. PO SCH (20:35)
[2018-10-25] MEDS: DOXYCYCLINE HYCLATE 100 MG TABLET PO SCH (20:35)
[2018-10-25] MEDS: ENOXAPARIN 40 MG/0.4 ML SYRINGE. SQ SCH (20:37)
[2018-10-25 22:55] VITALS: BP 120/64
--- NOTE | 2018-10-26 01:38 | CONS ---
DATE OF CONSULTATION: 10/25/2018 REFERRING PHYSICIAN: Dr. Daniels. REASON FOR CONSULTATION: Pneumonia. HISTORY OF PRESENT ILLNESS: A 77-year-old female with history of multiple myeloma who presented to the ER on 10/23/2018 with complaints of chest congestion and nausea. She was found to have fever. Her grandchild was sick with flu. She was found to have a temperature of 99. She has been on chemotherapy for multiple myeloma. She also had some cough, denied any vomiting. Chest x-ray showed possible pneumonia. Influenza screen was positive. She was admitted to the hospital and started on Tamiflu, vancomycin, and Zosyn. She also received a dose of ceftriaxone and azithromycin in the ER. ID consult has been requested for antibiotic management. Today, the patient says she feels a little better. Denies any fever or chills. Still coughs up, but is dry. No nausea, vomiting, diarrhea, abdominal pain, sore throat, difficulty swallowing, headache, ear pain, or drainage, symptoms. PAST MEDICAL HISTORY: Multiple myeloma, on chemo and chronic low back pain. PAST SURGICAL HISTORY: Appendectomy, , breast biopsy. CURRENT MEDICATION: IV vancomycin and Zosyn, also received one dose of ceftriaxone and azithromycin in ER. FAMILY HISTORY: As per HPI. SOCIAL HISTORY: Denies smoking, ETOH, or illicit drug use. REVIEW OF SYSTEMS: Negative except for above in HPI. PHYSICAL EXAMINATION: VITAL SIGNS: Temperature 99, T-max 101.1, pulse 61, respiratory rate 18, blood pressure 124/59, and oxygen saturation 94% on room air. HEENT: Normocephalic, atraumatic, anicteric. No thrush. Oral mucosa moist. NECK: Supple, no JVD, no lymphadenopathy. LUNGS: Clear bilaterally. No wheezing. CARDIOVASCULAR: S1, S2 with no gallops or murmurs. ABDOMEN: Soft, nontender, nondistended. Chest wall Port-A-Cath site looks okay. EXTREMITIES: No edema, no cyanosis, no clubbing. NEUROLOGICAL: Alert and oriented x3. Grossly nonfocal. PSYCHIATRIC: Cooperative, appropriate mood, and affect. LABORATORY DATA: WBC 3.6, was 6.2; hemoglobin 10.6, was 12.4; hematocrit 32.1; platelets 159; neutrophil 69; lymphocytes 13. Sodium 137, potassium 3.4, chloride 101, bicarbonate 28, BUN 8, creatinine 0.9, glucose 89. Procalcitonin less than 0.10. UA shows rare WBCs. Serology: Influenza A positive. RADIOLOGY: Chest x-ray 10/23/2018 shows opacity involving the right lateral upper lung field. This is new compared to the prior exam and possible infiltrate is questioned, interval followup with 2-view chest x-ray to assess resolution is recommended. IMPRESSION: 1. Influenza A. 2. Pneumonia. 3. Fever secondary to above. 4. History of multiple myeloma, on chemotherapy. 5. Immunosuppression. 6. Leukopenia. 7. Sepsis. RECOMMENDATIONS: 1. Continue oseltamivir. 2. Discontinue IV vancomycin and Zosyn.the patient is on room air, afebrile, feeling much better. 3.We will change to Augmentin and doxycycline,If stable, plans are for discharge tomorrow. 4. Continue supportive care. 5. Follow up labs and cultures. Thank you, Dr. Daniels for consulting Infectious Disease to participate in this patient's care. If you have any questions, do not hesitate to contact me. KAJTA ALCAZAR MD DR: LUIS ANTONIO/amara JOB#: [id number] / [id number] SUZANNA
[2018-10-26 03:00] VITALS: BP 111/56
[2018-10-26 07:00] VITALS: BP 117/66
[2018-10-26] MEDS: ONDANSETRON ODT 4 MG TAB.RAPDIS. PO SCH ×2 (07:30→11:45)
[2018-10-26] MEDS ORDERED: AMOX1TAB11 PO (08:16)
[2018-10-26] MEDS ORDERED: DOXY100T PO (08:16)
[2018-10-26] MEDS ORDERED: OSEL30CA PO (08:16)
[2018-10-26] MEDS: POTASSIUM CHLORIDE 20 MEQ TABLET.ER. PO SCH (08:54)
[2018-10-26] MEDS: AMOXICILLIN/K CLAV 875/125MG TABLET. PO SCH (08:54)
[2018-10-26] MEDS: CETIRIZINE HCL 10 MG TABLET. PO SCH (08:54)
[2018-10-26] MEDS: GABAPENTIN 100 MG CAPSULE. PO SCH (08:54)
[2018-10-26] MEDS: ASPIRIN ENTERIC COATED 81 MG TABLET.DR. PO SCH (08:54)
[2018-10-26] MEDS: OSELTAMIVIR 30 MG CAPSULE PO SCH (08:54)
[2018-10-26] MEDS: DOCUSATE SODIUM 100 MG CAPSULE. PO SCH (08:54)
[2018-10-26] MEDS: CYCLOBENZAPRINE 10 MG TABLET. PO SCH (08:55)
[2018-10-26] MEDS: DOXYCYCLINE HYCLATE 100 MG TABLET PO SCH (08:55)
[2018-10-26] MEDS: MULTIVITAMIN with MINERAL TABLET. PO SCH (08:55)
[2018-10-26] MEDS: CHOLECALCIFEROL (VITAMIN D3) 1,000 UNIT TABLET PO SCH (08:55)
[2018-10-26] MEDS: ACYCLOVIR 200 MG CAPSULE. PO SCH (08:55)
--- NOTE | 2018-10-26 09:08 | PDOC ---
Infectious Disease Note Subjective: Subjective pt feels better no f/cnv/abdo pain weakness ,sob and cough improving ROS: ROS Negative except for above. Vital Signs: Vital Signs Vital Signs Date Time Temp Pulse Resp B/P (MAP) Pulse Ox O2 Delivery O2 Flow Rate FiO2 10/26/18 07:00 98.4 69 16 117/66 (83) 100 Room Air 98.4 10/26/18 03:00 2.0 Physical Exam: PHYSICAL EXAM HEENT: Normocephalic, atraumatic, anicteric. No thrush. Oral mucosa moist. NECK: Supple, no JVD, no lymphadenopathy. LUNGS: Clear bilaterally. No wheezing. CARDIOVASCULAR: S1, S2 with no gallops or murmurs. ABDOMEN: Soft, nontender, nondistended. Chest wall Port-A-Cath site looks okay. EXTREMITIES: No edema, no cyanosis, no clubbing. NEUROLOGICAL: Alert and oriented x3. Grossly nonfocal. PSYCHIATRIC: Cooperative, appropriate mood, and affect. Medications: Inpatient Meds: Current Medications Medications (Trade) Dose Ordered Sig/Katrin Start Time Stop Time Status Last Admin Dose Admin Acetaminophen (Tylenol) 650 mg PRN Q6HRS PRN 10/24/18 02:00 10/24/18 02:28 650 MG Acetaminophen/ Hydrocodone Bitart (Lortab 5/325) 1 tab PRN Q4HRS PRN 10/23/18 17:30 Acyclovir (Zovirax) 800 mg BID 10/23/18 21:00 10/26/18 08:55 800 MG Alprazolam (Xanax) 0.5 mg PRN Q6HRS PRN 10/23/18 17:30 10/23/18 18:20 0.5 MG Amoxicillin/ Clavulanate Potassium (Augmentin 875/ 125mg) 1 tab BID 10/25/18 21:00 10/26/18 08:54 1 TAB Aspirin (Ecotrin) 81 mg DAILY 10/24/18 09:00 10/26/18 08:54 81 MG Azithromycin 250 ml @ 250 mls/hr 1X ONCE 10/23/18 20:30 10/23/18 21:29 UNV Azithromycin 500 mg/Sodium Chloride 250 ml @ 250 mls/hr 1X ONCE 10/24/18 17:00 10/24/18 17:59 DC 10/24/18 17:20 250 MLS/HR Ceftriaxone Sodium (Rocephin) 1 gm Q24H 10/24/18 17:00 10/25/18 08:04 DC 10/24/18 17:20 1 GM Cetirizine HCl (ZyrTEC) 10 mg DAILY 10/24/18 10:00 10/26/18 08:54 10 MG Cyclobenzaprine HCl (Flexeril) 5 mg TID 10/23/18 21:00 10/26/18 08:55 5 MG Diphenhydramine HCl (Benadryl) 25 mg PRN QHS PRN 10/24/18 09:15 Docusate Sodium (Colace) 100 mg DAILY 10/24/18 09:00 10/26/18 08:54 100 MG Doxycycline Hyclate (Vibra-Tab) 100 mg BID 10/25/18 21:00 10/26/18 08:55 100 MG Enoxaparin Sodium (Lovenox 40mg Syringe) 40 mg Q24H 10/23/18 21:00 10/25/18 20:37 40 MG Fentanyl (Duragesic 12mcg/ Hr Patch) 1 patch Q3DAYS 10/24/18 09:00 10/24/18 09:16 1 PATCH Fluticasone Propionate (Flonase) 2 spray DAILY 10/24/18 10:00 10/24/18 09:53 2 SPRAY Gabapentin (Neurontin) 100 mg TID 10/23/18 21:00 10/26/18 08:54 100 MG Guaifenesin (Robitussin Dm) 10 ml PRN Q6HRS PRN 10/24/18 09:15 10/25/18 23:37 10 ML Metoclopramide HCl (Reglan Vial) 10 mg 1X ONCE 10/23/18 15:15 10/23/18 15:16 DC 10/23/18 15:42 10 MG Morphine Sulfate (Morphine Sulfate) 2 mg PRN Q2HR PRN 10/23/18 16:00 10/24/18 15:59 DC Multivitamins (Thera M Plus) 1 tab DAILY 10/24/18 09:00 10/26/18 08:55 1 TAB Non-Formulary Medication (Hydrocodone/ Chlorphen P-Stirex (Tussionex Pennkinetic Susp)) 5 ml BID PRN 10/23/18 17:30 10/23/18 17:52 DC Ondansetron HCl (Zofran Odt) 8 mg TIDAC 10/24/18 07:30 10/24/18 07:36 8 MG Ondansetron HCl (Zofran) 4 mg PRN Q6HRS PRN 10/24/18 09:30 Oseltamivir Phosphate (Tamiflu) 30 mg BID 10/23/18 21:00 10/28/18 20:59 10/26/18 08:54 30 MG Piperacillin Sod/ Tazobactam Sod (Zosyn Per Pharmacy) 1 each PRN DAILY PRN 10/25/18 08:15 10/25/18 19:26 DC Piperacillin Sod/ Tazobactam Sod 4.5 gm/Sodium Chloride 100 ml @ 200 mls/hr Q6HRS 10/25/18 08:30 10/25/18 12:52 DC 10/25/18 09:22 200 MLS/HR Potassium Chloride (Klor-Con) 20 meq DAILYWBKFT 10/25/18 09:00 10/26/18 08:54 20 MEQ Prochlorperazine Maleate (Compazine) 10 mg PRN Q6HRS PRN 10/23/18 17:45 Sodium Chloride 1,000 ml @ 75 mls/hr 1X ONCE 10/23/18 20:30 10/24/18 09:49 DC 10/23/18 20:59 75 MLS/HR Vancomycin HCl (Vanco Per Pharmacy) 1 each PRN DAILY PRN 10/23/18 20:30 10/25/18 12:52 DC 10/24/18 12:36 1 EACH Vancomycin HCl (Vancomycin Trough Level) 1 each 1X ONCE 10/25/18 21:30 10/25/18 21:30 DC Vancomycin HCl 1.25 gm/Sodium Chloride 250 ml @ 167 mls/hr Q24H 10/24/18 22:00 10/25/18 12:52 DC 10/24/18 22:20 167 MLS/HR Vancomycin HCl 2 gm/Sodium Chloride 500 ml @ 250 mls/hr 1X ONCE 10/23/18 21:00 10/23/18 22:59 DC 10/23/18 21:34 250 MLS/HR Vitamin D (Vitamin D3) 4,000 unit DAILY 10/24/18 09:00 10/26/18 08:55 4,000 UNIT Objective: Assessment: Influenza A Pneumonia. Fever secondary to above.resolved History of multiple myeloma, on chemotherapy. Immunosuppression. Leukopenia. Plan: Plan of Care tamiflu for total 5 days Augmentin and doxycycline for 7 days dc today per team KATJA ALCAZAR MD Oct 26, 2018 09:08
[2018-10-26 09:11] LABS: BASO % 1 % (0-3); EOS % 1 % (0-3); HEMATOCRIT 37.5 % (36.0-47.0); HEMOGLOBIN 12.4 g/dL (12.0-15.5); LYMPH # 0.8 x10^3/uL (1.0-4.8); LYMPH % 30 % (24-48); MEAN CORPUSCULAR HEMOGLOBIN 32 pg (25-35); MEAN CORPUSCULAR HGB CONC 33 g/dL (31-37); MEAN CORPUSCULAR VOLUME 97 fL (79-100); MONO # 0.4 x10^3/uL (0.0-1.1); MONO % 16 % (0-9); NEUT # 1.3 x10^3uL (1.8-7.7); NEUT % 52 % (31-73); PLATELET COUNT 197 x10^3/uL (140-400); RED BLOOD COUNT 3.88 x10^6/uL (3.50-5.40); RED CELL DISTRIBUTION WIDTH 13.5 % (11.5-14.5); WHITE BLOOD COUNT 2.5 x10^3/uL (4.0-11.0)
[2018-10-26] MEDS: FLUTICASONE 50MCG/NASAL SPRAY 16GM BOTTLE. NS SCH (09:13)
--- NOTE | 2018-10-26 09:24 | PDOC ---
PULMONARY PROGRESS NOTES Subjective PT BETTER TODAY LESS SOA Vitals Vital Signs Date Time Temp Pulse Resp B/P (MAP) Pulse Ox O2 Delivery O2 Flow Rate FiO2 10/26/18 07:00 98.4 69 16 117/66 (83) 100 Room Air 98.4 10/26/18 03:00 2.0 ROS: No Nausea, No Chest Pain, No Abdominal Pain, No Increase Cough General: Alert Lungs: Clear Cardiovascular: S1, S2 Abdomen: Soft Neuro Exam: Alert Extremities: No Edema Skin: Warm Labs Laboratory Tests Test 10/26/18 07:57 White Blood Count 2.5 x10^3/uL (4.0-11.0) Red Blood Count 3.88 x10^6/uL (3.50-5.40) Hemoglobin 12.4 g/dL (12.0-15.5) Hematocrit 37.5 % (36.0-47.0) Mean Corpuscular Volume 97 fL (79-100) Mean Corpuscular Hemoglobin 32 pg (25-35) Mean Corpuscular Hemoglobin Concent 33 g/dL (31-37) Red Cell Distribution Width 13.5 % (11.5-14.5) Platelet Count 197 x10^3/uL (140-400) Neutrophils (%) (Auto) 52 % (31-73) Lymphocytes (%) (Auto) 30 % (24-48) Monocytes (%) (Auto) 16 % (0-9) Eosinophils (%) (Auto) 1 % (0-3) Basophils (%) (Auto) 1 % (0-3) Neutrophils # (Auto) 1.3 x10^3uL (1.8-7.7) Lymphocytes # (Auto) 0.8 x10^3/uL (1.0-4.8) Monocytes # (Auto) 0.4 x10^3/uL (0.0-1.1) Eosinophils # (Auto) 0.0 x10^3/uL (0.0-0.7) Basophils # (Auto) 0.0 x10^3/uL (0.0-0.2) Laboratory Tests Test 10/26/18 07:57 White Blood Count 2.5 x10^3/uL (4.0-11.0) Red Blood Count 3.88 x10^6/uL (3.50-5.40) Hemoglobin 12.4 g/dL (12.0-15.5) Hematocrit 37.5 % (36.0-47.0) Mean Corpuscular Volume 97 fL (79-100) Mean Corpuscular Hemoglobin 32 pg (25-35) Mean Corpuscular Hemoglobin Concent 33 g/dL (31-37) Red Cell Distribution Width 13.5 % (11.5-14.5) Platelet Count 197 x10^3/uL (140-400) Neutrophils (%) (Auto) 52 % (31-73) Lymphocytes (%) (Auto) 30 % (24-48) Monocytes (%) (Auto) 16 % (0-9) Eosinophils (%) (Auto) 1 % (0-3) Basophils (%) (Auto) 1 % (0-3) Neutrophils # (Auto) 1.3 x10^3uL (1.8-7.7) Lymphocytes # (Auto) 0.8 x10^3/uL (1.0-4.8) Monocytes # (Auto) 0.4 x10^3/uL (0.0-1.1) Eosinophils # (Auto) 0.0 x10^3/uL (0.0-0.7) Basophils # (Auto) 0.0 x10^3/uL (0.0-0.2) Medications Active Scripts Medications Dose Route/Sig Max Daily Dose Days Date Category Medrol (Methylprednisolone) 4 Mg Tab.ds.pk 1 Pkg PO UD 01/21/18 Rx Cyclobenzaprine Hcl 5 Mg Tablet 1 Tab PO TID 01/21/18 Rx Zithromax (Azithromycin) 250 Mg Tablet 1 Pkg PO UD 01/08/18 Rx Tussionex Pennkinetic Susp (Hydrocodone/Chlorphen P-Stirex) 115 Ml Julianne.er.12h 5 Ml PO BID PRN 01/08/18 Rx Potassium Chloride 10 Meq Tab.sr.24h 10 Meq PO DAILY 09/07/17 Reported Multivitamins (Multivitamin) 1 Each Tablet 1 Tab PO DAILY 09/07/17 Reported [place] 5-325 Tablet (Acetaminophen/Hydrocodone Bitart) 1 Each Tablet 1 Tab PO PRN Q4HRS PRN 09/07/17 Reported Gabapentin (Gabapentin) 100 Mg Capsule 100 Mg PO TID 09/07/17 Reported DURAGESIC 12mcg/hr (Fentanyl) 1 Each Patch.td72 1 Patch TP Q3DAYS 09/07/17 Reported Colace (Docusate Sodium) 100 Mg Capsule 1 Cap PO DAILY 09/07/17 Reported Aspir 81 (Aspirin) 81 Mg Tablet.dr 1 Tab PO DAILY 09/07/17 Reported Xanax (Alprazolam) 0.5 Mg Tablet 0.5 Mg PO PRN Q6HRS PRN 09/07/17 Reported Acyclovir 800 Mg Tablet 1 Tab PO BID 09/07/17 Reported Vitamin D3 (Cholecalciferol (Vitamin D3)) 4,000 Unit Capsule 4,000 Unit PO DAILY 09/07/17 Reported Compazine (Prochlorperazine Maleate) 10 Mg Tablet 10 Mg PO PRN Q6HRS PRN 09/15/14 Rx Zofran Odt (Ondansetron) 4 Mg Tab.rapdis 8 Mg PO TIDAC 09/15/14 Rx Impression . IMPRESSION: 1. Abnormal x-ray with right upper lobe opacity. 2. Pneumonia. Positive influenza A. 3. Fever secondary to above. 4. Multiple myeloma. 5. Immunocompromised secondary to above. 6. Neutropenia. 7. Sepsis. NOTE FROM DR MATA IMPRESSION AND PLAN: 1. Multiple myeloma, diagnosed on 09/11/2014. She is currently on chemotherapy with Kyprolis. Her most recent treatment was on 10/14/2018. I will defer next cycle by 2 weeks because of underlying pneumonia and influenza A. 2. Pneumonia. Continue management per primary team. Appreciate pulmonary consult. 3. Influenza A. Continue management per primary team. 4. Anemia and leukopenia are new and acute, which is reactive due to underlying infection. Continue to monitor. Plan . HOME TODAY FOLLOW UP CXR IN 6-8 WEEKS FOLLOW UP IN OFFICE 6MW ESTRELLA MENCHACA MD Oct 26, 2018 09:24
[2018-10-26 09:38] LABS: CALCIUM 8.8 mg/dL (8.5-10.1); CREATININE 0.9 mg/dL (0.6-1.0); GFR 73.3; POTASSIUM 3.8 mmol/L (3.5-5.1)
[2018-10-26 11:00] VITALS: BP 102/62
--- NOTE | 2018-10-26 12:42 | PDOC3 ---
Discharge Summary Visit Information Date of Admission: Oct 23, 2018 Date of Discharge: Oct 26, 2018 Admitting Diagnosis Comment: PNA in an immunocompromised Sepsis possible gram-positive gram-negative PNA Multiple myeloma on chemotherapy 3 years-gets chemotherapy twice a month Influenza A Hypoxic respiratory failure in the background of above Obesity, BMI 33 sees MIld hypokalemia 3.4 Neutropenia 3.6 Thrombocytopenia mild with no bleeding Fevers Sepsis Herpes? On Zovirax Final Diagnosis Problems Medical Problems: (1) Cough Status: Acute (2) PNA (pneumonia) Status: Acute Brief Hospital Course Allergies Allergies Coded Allergies Type Severity Reaction Last Updated Verified aspirin Allergy Intermediate 09/09/14 Yes codeine Allergy Intermediate 09/09/14 Yes Vital Signs Vital Signs Date Time Temp Pulse Resp B/P (MAP) Pulse Ox O2 Delivery O2 Flow Rate FiO2 10/26/18 11:00 98.3 96 17 102/62 (75) 98 Room Air 98.3 10/26/18 03:00 2.0 Lab Results Laboratory Tests Test 10/26/18 07:57 White Blood Count 2.5 x10^3/uL (4.0-11.0) Red Blood Count 3.88 x10^6/uL (3.50-5.40) Hemoglobin 12.4 g/dL (12.0-15.5) Hematocrit 37.5 % (36.0-47.0) Mean Corpuscular Volume 97 fL (79-100) Mean Corpuscular Hemoglobin 32 pg (25-35) Mean Corpuscular Hemoglobin Concent 33 g/dL (31-37) Red Cell Distribution Width 13.5 % (11.5-14.5) Platelet Count 197 x10^3/uL (140-400) Neutrophils (%) (Auto) 52 % (31-73) Lymphocytes (%) (Auto) 30 % (24-48) Monocytes (%) (Auto) 16 % (0-9) Eosinophils (%) (Auto) 1 % (0-3) Basophils (%) (Auto) 1 % (0-3) Neutrophils # (Auto) 1.3 x10^3uL (1.8-7.7) Lymphocytes # (Auto) 0.8 x10^3/uL (1.0-4.8) Monocytes # (Auto) 0.4 x10^3/uL (0.0-1.1) Eosinophils # (Auto) 0.0 x10^3/uL (0.0-0.7) Basophils # (Auto) 0.0 x10^3/uL (0.0-0.2) Sodium Level 140 mmol/L (136-145) Potassium Level 3.8 mmol/L (3.5-5.1) Chloride Level 102 mmol/L (98-107) Carbon Dioxide Level 32 mmol/L (21-32) Anion Gap 6 (6-14) Blood Urea Nitrogen 10 mg/dL (7-20) Creatinine 0.9 mg/dL (0.6-1.0) Estimated GFR (Cockcroft-Gault) 73.3 Glucose Level 88 mg/dL (70-99) Calcium Level 8.8 mg/dL (8.5-10.1) Laboratory Tests Test 10/26/18 07:57 White Blood Count 2.5 x10^3/uL (4.0-11.0) Red Blood Count 3.88 x10^6/uL (3.50-5.40) Hemoglobin 12.4 g/dL (12.0-15.5) Hematocrit 37.5 % (36.0-47.0) Mean Corpuscular Volume 97 fL (79-100) Mean Corpuscular Hemoglobin 32 pg (25-35) Mean Corpuscular Hemoglobin Concent 33 g/dL (31-37) Red Cell Distribution Width 13.5 % (11.5-14.5) Platelet Count 197 x10^3/uL (140-400) Neutrophils (%) (Auto) 52 % (31-73) Lymphocytes (%) (Auto) 30 % (24-48) Monocytes (%) (Auto) 16 % (0-9) Eosinophils (%) (Auto) 1 % (0-3) Basophils (%) (Auto) 1 % (0-3) Neutrophils # (Auto) 1.3 x10^3uL (1.8-7.7) Lymphocytes # (Auto) 0.8 x10^3/uL (1.0-4.8) Monocytes # (Auto) 0.4 x10^3/uL (0.0-1.1) Eosinophils # (Auto) 0.0 x10^3/uL (0.0-0.7) Basophils # (Auto) 0.0 x10^3/uL (0.0-0.2) Sodium Level 140 mmol/L (136-145) Potassium Level 3.8 mmol/L (3.5-5.1) Chloride Level 102 mmol/L (98-107) Carbon Dioxide Level 32 mmol/L (21-32) Anion Gap 6 (6-14) Blood Urea Nitrogen 10 mg/dL (7-20) Creatinine 0.9 mg/dL (0.6-1.0) Estimated GFR (Cockcroft-Gault) 73.3 Glucose Level 88 mg/dL (70-99) Calcium Level 8.8 mg/dL (8.5-10.1) Brief Hospital Course Ms. Baez is a 77 old of multiple myeloma on chemotherapy 3 years , admitted because of influenza A and pneumonia. She had some hypoxia. Took some 2 days before she got better. She is actually hesitant to go home because she has small kids at home fearful of transmission or spreading influenza and also that she could not get adequate rest at home. Medically ready, I have Rx Tamiflu and antibiotics. On day of discharge she complains of some food sensation getting stuck in her esophagus. Request a GI consult. Did consult GI but still most likely home later. Dc < 30 mins Consults: ID, heme onc, GI PRoc none Discharge Information Condition at Discharge: Improved, Stable Disposition/Orders: D/C to Home Scheduled Acyclovir (Acyclovir) 800 Mg Tablet, 1 TAB PO BID, #50 (Reported) Entered as Reported by: AMADOR CARROLL on 09/07/17852 Last Action: Converted on 10/23/181722 by DEVIKA CALHOUN MD Amoxicillin/Potassium Clav (Amox Tr-K Clv 875-125 Mg Tab) 1 Each Tablet, 1 TAB PO BID for uri MDD 1 for 7 Days, #14 Prescribed by: ASAD ACOSTA on 10/26/18 0816 Aspirin (Aspir 81) 81 Mg Tablet., 1 TAB PO DAILY, #30 Ref 5 (Reported) Entered as Reported by: AMADOR CARROLL on 09/07/17852 Last Action: Continued on 10/23/181722 by DEVIKA CALHOUN MD Azithromycin (Zithromax) 250 Mg Tablet, 1 PKG PO UD, #6 Prescribed by: MERLENE ROBLES D.O. on 01/08/181338 Last Action: HELD on 10/23/181722 by DEVIKA CALHOUN MD Cholecalciferol (Vitamin D3) (Vitamin D3) 4,000 Unit Capsule, 4,000 UNIT PO DAILY, (Reported) Entered as Reported by: AMADOR CARROLL on 09/07/17852 Last Action: Converted on 10/23/181722 by DEVIKA CALHOUN MD Cyclobenzaprine Hcl (Cyclobenzaprine Hcl) 5 Mg Tablet, 1 TAB PO TID, #30 Prescribed by: RAGHAV SANTOYO MD on 01/21/18929 Last Action: Converted on 10/23/181722 by DEVIKA CALHOUN MD Docusate Sodium (Colace) 100 Mg Capsule, 1 CAP PO DAILY, #30 (Reported) Entered as Reported by: AMADOR CARROLL on 09/07/17852 Last Action: Continued on 10/23/181722 by DEVIKA CALHOUN MD Doxycycline Hyclate (Doxycycline Hyclate) 100 Mg Tablet, 100 MG PO BID for uri MDD 1 for 7 Days, #14 Prescribed by: ASAD ACOSTA on 10/26/18 0816 Fentanyl (DURAGESIC 12mcg/hr) 1 Each Patch.td72, 1 PATCH TP Q3DAYS, #10 ( Reported) Entered as Reported by: AMADOR CARROLL on 09/07/17853 Last Action: Continued on 10/23/181722 by DEVIKA CALHOUN MD Gabapentin (Gabapentin ) 100 Mg Capsule, 100 MG PO TID, (Reported) Entered as Reported by: AMADOR CARROLL on 09/07/17853 Last Action: Continued on 10/23/181722 by DEVIKA CALHOUN MD Methylprednisolone (Medrol) 4 Mg Tab.ds.pk, 1 PKG PO UD, #1 Prescribed by: RAGHAV SANTOYO MD on 01/21/18929 Last Action: HELD on 10/23/181722 by DEVIKA CALHOUN MD Multivitamin (Multivitamins) 1 Each Tablet, 1 TAB PO DAILY, #90 Ref 3 (Reported) Entered as Reported by: AMADOR CARROLL on 09/07/17853 Last Action: Converted on 10/23/181722 by DEVIKA CALHOUN MD Ondansetron (Zofran Odt) 4 Mg Tab.rapdis, 8 MG PO TIDAC, #90 Ref 1 Prescribed by: JULIAN DRISCOLL on 09/15/14 1037 Last Action: Continued on 10/23/181722 by DEVIKA CALHOUN MD Oseltamivir Phosphate (Tamiflu) 30 Mg Capsule, 30 MG PO BID for flu MDD 1 for 5 Days, #10 Prescribed by: ASAD ACOSTA on 10/26/18 0816 Potassium Chloride (Potassium Chloride) 10 Meq Tab.sr.24h, 10 MEQ PO DAILY, ( Reported) Entered as Reported by: AMADOR CARROLL on 09/07/17853 Last Action: Continued on 10/23/181722 by DEVIKA CALHOUN MD Scheduled PRN Alprazolam (Xanax) 0.5 Mg Tablet, 0.5 MG PO PRN Q6HRS PRN for ANXIETY / AGITATION, Ref 0 (Reported) Entered as Reported by: AMADOR CARROLL on 09/07/1753 Last Action: Continued on 10/23/181722 by DEVIKA CALHOUN MD Hydrocodone/[place] 5-325 ([place] 5-325 Tablet) 1 Each Tablet, 1 TAB PO PRN Q4HRS PRN for PAIN, Ref 0 (Reported) Entered as Reported by: AMADOR CARROLL on 09/07/17853 Last Action: Continued on 10/23/181722 by DEVIKA CALHOUN MD Hydrocodone/Chlorphen P-Stirex (Tussionex Pennkinetic Susp) 115 Ml Julianne.er.12h, 5 ML PO BID PRN for COUGH, #120 Prescribed by: MERLENE ROBLES D.O. on 01/08/18 1339 Last Action: Converted on 10/23/181722 by DEVIKA CALHOUN MD Prochlorperazine Maleate (Compazine) 10 Mg Tablet, 10 MG PO PRN Q6HRS PRN for NAUSEA/VOMITING, #30 Ref 1 Prescribed by: JULIAN DRISCOLL on 09/15/14 1037 Last Action: Converted on 10/23/181722 by MD KARLA YUAN CHERRIE Y MD Oct 26, 2018 12:42
--- NOTE | 2018-10-26 12:43 | PDOC2 ---
GI CONSULT Reason For Consult: swallow difficult HPI: HPI: 77 y/o female admitted 10/23 w/ influenza A and pneumonia, additional h/o MM on chemo. We are asked to see her this afternoon for difficulty swallowing. Per RN, she is to be discharged today - she also mentioned she didn't want to go home because there's lots of kids there which makes it hard to rest. She reports that a bunch of pills went very slowly down her throat this morning and it felt like one stopped in the midchest. This has resolved and she has been able to eat and drink without issue since then (though doesn't have much appetite today). 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 No h/o dysphagia. No odynophagia. Denies reflux/heartburn. No n/v. No abd pain. No diarrhea or constipation. No hematemesis, hematochezia, or melena. No weight loss. Prior to this morning, stable appetite (and weight). No previous EGD. Thinks had a normal colonoscopy at some point. S/p cholecystectomy. No PUD, liver, or pancreas history. No NSAIDs but does take ASA 81mg. PMH: PMH: multiple myeloma (h/o radiation, currently on chemo), CLL, chronic back pain, possible adrenal adenoma appendectomy, C-sections, breast biopsies, bon marrow biopsy, cholecystectomy FH: Family History: No pertinent hx Social History: Smoke: No ALCOHOL: none Drugs: None ROS: GEN: +fever HEENT: Denies blurred vision, sore throat CV: Denies chest pain RESP: +cough +SOA GI: Per HPI : Denies hematuria, dysuria ENDO: Denies weight changes NEURO: Denies confusion, dizziness MSK: +back pain SKIN: Denies jaundice, pruritus Vitals: Vitals: Vital Signs Date Time Temp Pulse Resp B/P (MAP) Pulse Ox O2 Delivery O2 Flow Rate FiO2 10/26/18 11:00 98.3 96 17 102/62 (75) 98 Room Air 98.3 10/26/18 03:00 2.0 Labs: Labs: Laboratory Tests Test 10/26/18 07:57 White Blood Count 2.5 x10^3/uL (4.0-11.0) Red Blood Count 3.88 x10^6/uL (3.50-5.40) Hemoglobin 12.4 g/dL (12.0-15.5) Hematocrit 37.5 % (36.0-47.0) Mean Corpuscular Volume 97 fL (79-100) Mean Corpuscular Hemoglobin 32 pg (25-35) Mean Corpuscular Hemoglobin Concent 33 g/dL (31-37) Red Cell Distribution Width 13.5 % (11.5-14.5) Platelet Count 197 x10^3/uL (140-400) Neutrophils (%) (Auto) 52 % (31-73) Lymphocytes (%) (Auto) 30 % (24-48) Monocytes (%) (Auto) 16 % (0-9) Eosinophils (%) (Auto) 1 % (0-3) Basophils (%) (Auto) 1 % (0-3) Neutrophils # (Auto) 1.3 x10^3uL (1.8-7.7) Lymphocytes # (Auto) 0.8 x10^3/uL (1.0-4.8) Monocytes # (Auto) 0.4 x10^3/uL (0.0-1.1) Eosinophils # (Auto) 0.0 x10^3/uL (0.0-0.7) Basophils # (Auto) 0.0 x10^3/uL (0.0-0.2) Sodium Level 140 mmol/L (136-145) Potassium Level 3.8 mmol/L (3.5-5.1) Chloride Level 102 mmol/L (98-107) Carbon Dioxide Level 32 mmol/L (21-32) Anion Gap 6 (6-14) Blood Urea Nitrogen 10 mg/dL (7-20) Creatinine 0.9 mg/dL (0.6-1.0) Estimated GFR (Cockcroft-Gault) 73.3 Glucose Level 88 mg/dL (70-99) Calcium Level 8.8 mg/dL (8.5-10.1) BLOOD CULTURE Preliminary NO GROWTH AFTER 2 DAYS Allergies: Coded Allergies: aspirin (Verified Allergy, Intermediate, 09/09/14) codeine (Verified Allergy, Intermediate, 09/09/14) Medications: Current Medications Medications (Trade) Dose Ordered Sig/Katrin Route PRN Reason Start Time Stop Time Status Last Admin Dose Admin Amoxicillin/ Clavulanate Potassium (Augmentin 875/ 125mg) 1 tab BID PO 10/25/18 21:00 10/26/18 08:54 Doxycycline Hyclate (Vibra-Tab) 100 mg BID PO 10/25/18 21:00 10/26/18 08:55 Imaging: Imaging: CXR 10/23 IMPRESSION: Opacity involving the right lateral upper lung field level. This is new compared to prior exam and possibly of infiltrate is questioned. Interval follow -up two-view chest x-ray exam to assess resolution is recommended. PE: GEN: NAD - ate about 15% of lunch HEENT: Atraumatic, PERRL LUNGS: clear anteriorly, occasional deep cough HEART: RRR ABD: NABS, S/ND/NT EXTREMITY: No edema SKIN: No rashes, no jaundice NEURO/PSYCH: A & O 3, flat A/P: A/P: Influenza A, pneumonia Multiple myeloma on chemo Pill dysphagia x 1 Decreased appetite - today only Leukopenia CRC screen - reports normal colonoscopy at some point S/p cholecystectomy -- Seems isolated incident w/ many/large pills - tolerating solid foods and liquids now. No h/o chronic dysphagia or GERD symptoms. Okay to DC per GI - follow-up w/ the office if symptoms recur - could pursue esophagram and/or EGD. Consider outpt screening colonoscopy at some point. ANDREA MCCARTHY Oct 26, 2018 12:43
== END 2018-10-26 14:45 | disposition home or self-care (01) | DRG 871 ==
LOC: ER 14:15 → 5 NORTH 16:03
PROVIDERS: ADMIT Family Medicine; ATTEND Family Medicine
DX: A41.9 Sepsis, unspecified organism (principal); J96.01 Acute respiratory failure with hypoxia; J15.6 Pneumonia due to other Gram-negative bacteria; J11.08 Influenza due to unidentified influenza virus with specified pneumonia; J15.9 Unspecified bacterial pneumonia; C90.00 Multiple myeloma not having achieved remission; C91.10 Chronic lymphocytic leukemia of B-cell type not having achieved remission; Z68.33 Body mass index [BMI] 33.0-33.9, adult; E66.9 Obesity, unspecified; D64.9 Anemia, unspecified; D69.6 Thrombocytopenia, unspecified; D70.9 Neutropenia, unspecified; M54.5 Low back pain; D89.9 Disorder involving the immune mechanism, unspecified; E87.6 Hypokalemia; G89.29 Other chronic pain; I10 Essential (primary) hypertension; K31.7 Polyp of stomach and duodenum; K44.9 Diaphragmatic hernia without obstruction or gangrene; R13.10 Dysphagia, unspecified; Z23 Encounter for immunization; Z79.82 Long term (current) use of aspirin; Z82.49 Family history of ischemic heart disease and other diseases of the circulatory system; Z90.49 Acquired absence of other specified parts of digestive tract; Z88.8 Allergy status to other drugs, medicaments and biological substances; Z68.32 Body mass index [BMI] 32.0-32.9, adult
CPT/HCPCS: 36415; 71045; 80048; 80053; 81001; 84145; 85025; 87040; 87804; 94618; 96374; 96375; J0456; J0696; J1650; J2543; J2765; J3370; J7030; J7040; J7050; Q0162; 99285-25

== ENCOUNTER → 2019-01-11 | Outpatient (CLI) | payer MEDICARE ==
[~2019-01-11] MED LIST changes: +AMOX1TAB11 PO; +DOXY100T PO; +OSEL30CA PO
--- NOTE | 2019-01-11 15:52 | RAD ---
EXAM: AP pelvis, AP and lateral views left hip DATE: 01/11/2019 12:00 AM INDICATION: Left hip pain COMPARISON: No Prior FINDINGS: No evidence of acute fracture or dislocation. Hip joint spaces are preserved without significant degenerative/proliferative change. SI joint and symphysis uterus degenerative changes are seen. Scattered pelvic phleboliths. IMPRESSION: No evidence of acute fracture or dislocation. Electronically signed by: Shad Talley MD (01/11/2019 3:50 PM) [id number]
== END | disposition home or self-care (01) ==
LOC: EDBD 15:05 → RAD 15:05
PROVIDERS: ATTEND Internal Medicine Hematology & Oncology
DX: M16.12 Unilateral primary osteoarthritis, left hip (principal); Z88.5 Allergy status to narcotic agent; Z88.8 Allergy status to other drugs, medicaments and biological substances
CPT/HCPCS: 73502

== ENCOUNTER → 2019-01-23 | Outpatient (CLI) | payer MEDICARE ==
[~2019-01-23] MED LIST changes: +GADOTERATE 7.5 MMOL/15ML VIAL. IVP ONE
--- NOTE | 2019-01-23 14:45 | RAD ---
Examination: MRI of the left hip without and with IV contrast HISTORY: History of left hip pain, history of multiple myeloma COMPARISON: None available Technique: Multiplanar, multisequence MR imaging of the left hip was performed without and with IV contrast. IV contrast used was 14 mL of Dotarem FINDINGS: The left femoral head is within the acetabulum. The attachment of the hamstring tendon to ischial tuberosity grossly appears intact Partially visualized 4.1 cm low T1 signal, high T2 signal lesion with enhancement identified in the posterior inferior left iliac bone at the sacroiliac joint suspicious for myelomatous lesion. There is partially visualized linear increased T2 signal with enhancement identified in the medulla of the proximal femur without overlying cortical disruption could be red marrow reconversion and less likely myelomatous involvement. The left femoral head is within the acetabulum. Moderate joint space loss identified in the left hip joint likely degeneration. The attachment of the gluteal tendons to the gluteus raudel demonstrates mild increased signal likely mild tendinosis. IMPRESSION: 1. Partially visualized 4.1 cm lesion identified in the posterior inferior left iliac bone at sacroiliac joint region likely myeloma. 2. There is partially visualized linear increased T2 signal with enhancement identified in the medulla of the proximal femur without overlying cortical disruption could be red marrow reconversion and less likely myelomatous involvement. Electronically signed by: Denny Solano MD (01/23/2019 2:42 PM) [id number]
== END | disposition home or self-care (01) ==
LOC: MRI 10:41
PROVIDERS: ATTEND Internal Medicine Hematology & Oncology
DX: M53.3 Sacrococcygeal disorders, not elsewhere classified (principal); Z85.79 Personal history of other malignant neoplasms of lymphoid, hematopoietic and related tissues
CPT/HCPCS: 73723; A9575

== ENCOUNTER → 2019-02-27 | Outpatient (CLI) | payer MEDICARE ==
[~2019-02-27] MED LIST changes: +FENT1PAT90 TD; -GADOTERATE 7.5 MMOL/15ML VIAL. IVP ONE; +MONT10TA49 PO; +SULF1TAB24 PO; +daratumumab IV
--- NOTE | 2019-02-27 12:24 | KCIC ---
Exam performed: Limited right chest ultrasound. HISTORY: Pain and swelling around the port site. DATE OF SERVICE: 02/27/2019. COMPARISON: None available Discussion: Targeted sonographic evaluation of the right chest was performed around the port. No abnormal fluid collections or masses are seen. IMPRESSION: No acute abnormality seen. Electronically signed by: Varsha Villarreal MD (02/27/2019 12:21 PM) [facility]
== END | disposition home or self-care (01) ==
LOC: KCIC US 10:09
PROVIDERS: ATTEND Internal Medicine Hematology & Oncology
DX: C90.00 Multiple myeloma not having achieved remission (principal)
CPT/HCPCS: 76604

== ENCOUNTER 2019-05-12 09:52 | Inpatient (IN) | payer MEDICARE ==
[~2019-05-12] VITALS: Ht 157.5 cm; Wt 79.5 kg
--- NOTE | 2019-05-12 10:13 | PHYS DOC ---
Past Medical History Past Medical History: Cancer Additional Past Medical Histor: chronic back pain, bone CA, multiple myloma Past Surgical History: Appendectomy, , Other Additional Past Surgical Histo: breast biopsy, rt chest port Alcohol Use: None Drug Use: None Adult General Chief Complaint Chief Complaint: BRADYCARDIA HPI HPI 78-year-old female presents to the emergency department with syncopal episode. Patient has underlying history of multiple myeloma, she was at the cancer center today had a syncopal episode witnessed by nursing staff. Patient was unconscious that time, EMS was called. Heart rate was in the 50s at that time. Patient denies any chest pain, nausea, vomiting. She does complain of some shortness of breath, states she is unable to get a big breath. She as well describes weakness, anxiety. Review of Systems Review of Systems Constitutional: Denies fever or chills [] Eyes: Denies change in visual acuity, redness, or eye pain [] HENT: Denies nasal congestion or sore throat [] Respiratory: Denies cough, + shortness of breath [] Cardiovascular: No additional information not addressed in HPI [] GI: Denies abdominal pain, nausea, vomiting, bloody stools or diarrhea [] : Denies dysuria or hematuria [] Musculoskeletal: Denies back pain or joint pain [] Integument: Denies rash or skin lesions [] Neurologic: Denies headache, focal weakness or sensory changes [] All other systems were reviewed and found to be within normal limits, except as documented in this note. Allergies Allergies Allergies Coded Allergies Type Severity Reaction Last Updated Verified aspirin Allergy Intermediate 09/09/14 Yes codeine Allergy Intermediate 09/09/14 Yes Physical Exam Physical Exam Constitutional: Well developed, well nourished, no acute distress, non-toxic appearance. [] HENT: Normocephalic, atraumatic, bilateral external ears normal, oropharynx moist, no oral exudates, nose normal. [] Eyes: PERRLA, EOMI, conjunctiva normal, no discharge. [] Neck: Normal range of motion, no tenderness, supple, no stridor. [] Cardiovascular: bradycardia Lungs & Thorax: Bilateral breath sounds clear to auscultation [] Abdomen: Bowel sounds normal, soft, no tenderness, no masses, no pulsatile masses. [] Skin: Warm, dry, no erythema, no rash. [] Back: No tenderness, no CVA tenderness. [] Extremities: No tenderness, no cyanosis, no edema. [] Neurologic: Alert and oriented X 3, no focal deficits noted. [] Psychologic: Affect normal, judgement normal, mood normal. [] Current Patient Data Vital Signs Vital Signs Date Time Temp Pulse Resp B/P (MAP) Pulse Ox O2 Delivery O2 Flow Rate FiO2 05/12/19 09:55 97.9 53 14 161/69 (99) 96 Room Air 97.9 Lab Values Laboratory Tests Test 05/12/19 10:15 White Blood Count 2.9 x10^3/uL (4.0-11.0) L Red Blood Count 4.05 x10^6/uL (3.50-5.40) Hemoglobin 12.4 g/dL (12.0-15.5) Hematocrit 37.3 % (36.0-47.0) Mean Corpuscular Volume 92 fL (79-100) Mean Corpuscular Hemoglobin 31 pg (25-35) Mean Corpuscular Hemoglobin Concent 33 g/dL (31-37) Red Cell Distribution Width 15.2 % (11.5-14.5) H Platelet Count 223 x10^3/uL (140-400) Neutrophils (%) (Auto) 38 % (31-73) Lymphocytes (%) (Auto) 45 % (24-48) Monocytes (%) (Auto) 13 % (0-9) H Eosinophils (%) (Auto) 3 % (0-3) Basophils (%) (Auto) 1 % (0-3) Neutrophils # (Auto) 1.1 x10^3/uL (1.8-7.7) L Lymphocytes # (Auto) 1.3 x10^3/uL (1.0-4.8) Monocytes # (Auto) 0.4 x10^3/uL (0.0-1.1) Eosinophils # (Auto) 0.1 x10^3/uL (0.0-0.7) Basophils # (Auto) 0.0 x10^3/uL (0.0-0.2) D-Dimer (Pilar) 0.53 ug/mlFEU (0.00-0.50) H Sodium Level 140 mmol/L (136-145) Potassium Level 4.0 mmol/L (3.5-5.1) Chloride Level 104 mmol/L (98-107) Carbon Dioxide Level 27 mmol/L (21-32) Anion Gap 9 (6-14) Blood Urea Nitrogen 11 mg/dL (7-20) Creatinine 1.0 mg/dL (0.6-1.0) Estimated GFR (Cockcroft-Gault) 64.7 BUN/Creatinine Ratio 11 (6-20) Glucose Level 113 mg/dL (70-99) H Calcium Level 9.5 mg/dL (8.5-10.1) Magnesium Level 1.9 mg/dL (1.8-2.4) Total Bilirubin 0.4 mg/dL (0.2-1.0) Aspartate Amino Transferase (AST) 18 U/L (15-37) Alanine Aminotransferase (ALT) 25 U/L (14-59) Alkaline Phosphatase 143 U/L (46-116) H Troponin I Quantitative < 0.017 ng/mL (0.000-0.055) Total Protein 7.4 g/dL (6.4-8.2) Albumin 3.1 g/dL (3.4-5.0) L Albumin/Globulin Ratio 0.7 (1.0-1.7) L Laboratory Tests 05/12/19 10:15 Laboratory Tests 05/12/19 10:15 EKG EKG EKG reveals sinus bradycardia, heart rate 49. No evidence of ST elevation[] Radiology/Procedures Radiology/Procedures [facility] [address] [place], [place] [id number] IMAGING REPORT Signed PATIENT: JUAN F GOLD JACCOUNT: [id number] : 1940 LOCATION: ER AGE: 78 SEX: F EXAM STATUS: REG ER ORD. PHYSICIAN: JACEK DAVIS MD REASON: chest pain, bradycardia PROCEDURE: PORTABLE CHEST 1V PORTABLE CHEST 1V 05/12/2019 10:10 AM INDICATION: Chest pain, bradycardia COMPARISON: 10/23/2018 TECHNIQUE: Portable frontal view of the chest is provided. FINDINGS: The cardiomediastinal silhouette is similar in appearance. Right chest wall infusion port catheter is identified with the distal tip projecting over the cavoatrial junction. There is hazy soft tissue opacity at the right lung apex which may be pleural-based or extrapleural. There are no significant pleural effusions. There is no pulmonary vascular congestion. No pneumothorax. IMPRESSION: Hazy opacity at the right lung apex may be extrapleural or pleural-based. Consider CT for further evaluation. Electronically signed by: Shahram Connolly MD (05/12/2019 10:38 AM) [id number] DICTATED and SIGNED BY: SHAHRAM CONNOLLY MD DATE: 05/12/19 1038 [] Course & Med Decision Making Course & Med Decision Making Pertinent Labs and Imaging studies reviewed. (See chart for details) []78-year-old female presents to the emergency department with syncopal episode. Patient has underlying history of multiple myeloma, she was at the cancer center today had a syncopal episode witnessed by nursing staff. Patient was unconscious that time, EMS was called. Heart rate was in the 50s at that time. Patient denies any chest pain, nausea, vomiting. She does complain of some shortness of breath, states she is unable to get a big breath. She as well describes weakness, anxiety. Labs/Imaging reviewed - Trop negative, DDimer within age adjusted range 0.53. Chest xray reviewed further CT ordered for follow up Telemetry with bradycardia Discussed admit with DR. EDWAR Jacobo Disclaimer Odalis Disclaimer This electronic medical record was generated, in whole or in part, using a voice recognition dictation system. Departure Departure Impression: Primary Impression: Syncope and collapse Additional Impression: Bradycardia Disposition: 09 ADMITTED INPATIENT Admitting Physician: HIMS Condition: STABLE Referrals: ANTOINE JOHNSON MD (PCP) Problem Qualifiers JACEK DAVIS MD May 12, 2019 10:13
[2019-05-12 10:26] LABS: BASO % 1 % (0-3); EOS # 0.1 x10^3/uL (0.0-0.7); EOS % 3 % (0-3); HEMATOCRIT 37.3 % (36.0-47.0); HEMOGLOBIN 12.4 g/dL (12.0-15.5); LYMPH # 1.3 x10^3/uL (1.0-4.8); LYMPH % 45 % (24-48); MEAN CORPUSCULAR HEMOGLOBIN 31 pg (25-35); MEAN CORPUSCULAR HGB CONC 33 g/dL (31-37); MEAN CORPUSCULAR VOLUME 92 fL (79-100); MONO # 0.4 x10^3/uL (0.0-1.1); MONO % 13 % (0-9); NEUT # 1.1 x10^3/uL (1.8-7.7); NEUT % 38 % (31-73); PLATELET COUNT 223 x10^3/uL (140-400); RED BLOOD COUNT 4.05 x10^6/uL (3.50-5.40); RED CELL DISTRIBUTION WIDTH 15.2 % (11.5-14.5); WHITE BLOOD COUNT 2.9 x10^3/uL (4.0-11.0)
[2019-05-12 10:32] LABS: CALCIUM 9.5 mg/dL (8.5-10.1); GFR 64.7
[2019-05-12 10:38] LABS: ALBUMIN 3.1 g/dL (3.4-5.0); ALBUMIN/GLOBULIN RATIO 0.7 (1.0-1.7); MAGNESIUM 1.9 mg/dL (1.8-2.4); TOTAL BILIRUBIN 0.4 mg/dL (0.2-1.0); TOTAL PROTEIN 7.4 g/dL (6.4-8.2)
--- NOTE | 2019-05-12 10:41 | RAD ---
PORTABLE CHEST 1V 05/12/2019 10:10 AM INDICATION: Chest pain, bradycardia COMPARISON: 10/23/2018 TECHNIQUE: Portable frontal view of the chest is provided. FINDINGS: The cardiomediastinal silhouette is similar in appearance. Right chest wall infusion port catheter is identified with the distal tip projecting over the cavoatrial junction. There is hazy soft tissue opacity at the right lung apex which may be pleural-based or extrapleural. There are no significant pleural effusions. There is no pulmonary vascular congestion. No pneumothorax. IMPRESSION: Hazy opacity at the right lung apex may be extrapleural or pleural-based. Consider CT for further evaluation. Electronically signed by: Aimee Wilks MD (05/12/2019 10:38 AM) [facility]
--- NOTE | 2019-05-12 11:40 | PDOC1 ---
History and Physical Date of Admission Date of Admission DATE: 05/12/19 TIME: 11:39 Identification/Chief Complaint Chief Complaint SEEN IN ER , presentED to the emergency department with syncopal episode. Patient has underlying history of multiple myeloma, she was at the cancer center today had a syncopal episode witnessed by nursing staff. Patient was unconscious that time, EMS was called. Heart rate was in the 50s at that time. Patient denies any chest pain, nausea, vomiting. She does complain of some shortness of breath, states she is unable to get a big breath. She as well describes weakness, anxiety. Past Medical History Past Medical History Past Medical History Past Medical History Past Medical History: Cancer Additional Past Medical Histor: chronic back pain, bone CA, multiple myloma Past Surgical History: Appendectomy, , Other Additional Past Surgical Histo: breast biopsy, rt chest port Alcohol Use: None Drug Use: None Multiple myeloma presenting with significant involvement at L1 with compression fracture and back pain. Diagnosis was confirmed by bone marrow biopsy in 09/2014. She was treated with 20 Gy of palliative radiation to T11 through L2, completed here in 09/2014. She has been on sequential systemic treatment initially with Revlimid, Velcade and dexamethasone, followed by Kyprolis and dexamethasone and most recently with daratumumab. Beginning in 12/2018, she had left hip pain associated with a significant regional myeloma involving the medial left iliac bone seen on MRI from 01/23/2019. She completed 20 Gy of palliative radiation to this site completed here on 02/20/2019 fhx OBESITY PAST MEDICAL HISTORY: 2 births, cholecystectomy, 2 right and 1 left breast biopsy in the past and myeloma ALLERGIES: ASPIRIN AND CODEINE CAUSE GI UPSET. HOME MEDICATIONS: Duragesic patch, acyclovir, alprazolam, aspirin, gabapentin, hydrocodone, acetaminophen, multiple vitamins, Singulair inhaler, Bactrim and Decadron. FAMILY HISTORY: Unremarkable for malignancy. SOCIAL HISTORY: for 8 years, from heart attack. Six children, all of whom live here. Lives with her daughter Christiana. 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 Cardiovascular: No pertinent hx Pulmonary: No pertinent hx GI: No pertinent hx Heme/Onc: Other Hepatobiliary: No pertinent hx Psych: No pertinent hx Musculoskeletal: low back pain Rheumatologic: No pertinent hx Infectious disease: No pertinent hx Renal/: No pertinent hx Endocrine: No pertinent hx Past Surgical History Past Surgical History: No pertinent history Family History Family History: No Significant, Hypertension Social History Smoke: No ALCOHOL: none Drugs: None Current Problem List Problem List Problems Medical Problems: (1) Syncope and collapse Status: Acute Current Medications Current Medications Active Scripts Active Reported [daratumumab ] IV WEEKLY Bactrim Ds Tablet (Sulfamethoxazole/Trimethoprim) 1 Each Tablet 1 Each PO WEDNESDAY AND WEDNESDAY Montelukast Sodium Tablet (Montelukast Sodium) 10 Mg Tablet 10 Mg PO HS DURAGESIC 25mcg/hr (Fentanyl) 1 Each Patch.td72 1 Patch TD Q72H Potassium Chloride 10 Meq Tab.sr.24h 10 Meq PO DAILY Multivitamins (Multivitamin) 1 Each Tablet 1 Tab PO DAILY [place] 5-325 Tablet (Acetaminophen/Hydrocodone Bitart) 1 Each Tablet 1 Tab PO PRN Q4HRS PRN Gabapentin (Gabapentin) 100 Mg Capsule 100 Mg PO TID Colace (Docusate Sodium) 100 Mg Capsule 1 Cap PO DAILY Aspir 81 (Aspirin) 81 Mg Tablet.dr 1 Tab PO DAILY Xanax (Alprazolam) 0.5 Mg Tablet 0.5 Mg PO PRN Q6HRS PRN Acyclovir 800 Mg Tablet 1 Tab PO BID Vitamin D3 (Cholecalciferol (Vitamin D3)) 4,000 Unit Capsule 4,000 Unit PO DAILY Allergies Allergies: Coded Allergies: aspirin (Verified Allergy, Intermediate, 09/09/14) codeine (Verified Allergy, Intermediate, 09/09/14) ROS Review of System Review of Systems Review of Systems Constitutional: Denies fever or chills [] Eyes: Denies change in visual acuity, redness, or eye pain [] HENT: Denies nasal congestion or sore throat [] Respiratory: Denies cough, + shortness of breath [] Cardiovascular: No additional information not addressed in HPI [] GI: Denies abdominal pain, nausea, vomiting, bloody stools or diarrhea [] : Denies dysuria or hematuria [] Musculoskeletal: Denies back pain or joint pain [] Integument: Denies rash or skin lesions [] Neurologic: Denies headache, focal weakness or sensory changes [] 14 PT systems were reviewed and found to be within normal limits, except as documented General: YES: Fatigue PSYCHOLOGICAL ROS: No: Anxiety, Behavioral Disorder, Concentration difficultie, Decreased libido, Depression, Disorientation, Hallucinations, Hostility, Irritablity, Memory difficulties, Mood Swings, Obsessive thoughts, Physical abuse, Sexual abuse, Sleep disturbances, Suicidal ideation, Other Respiratory: No: Cough, Hemoptysis, Orthopnea, Pleuritic Pain, Shortness of breath, SOB with excertion, Sputum Changes, Stridor, Tachypnea, Wheezing, Other Cardiovascular: yes Lt Headedness Neurological: Yes Gait Disturbance Physical Exam Physical Exam Physical Exam Physical Exam Constitutional: Well developed, well nourished, no acute distress, non-toxic appearance. [] HENT: Normocephalic, atraumatic, bilateral external ears normal, oropharynx moist, no oral exudates, nose normal. [] Eyes: PERRLA, EOMI, conjunctiva normal, no discharge. [] Neck: Normal range of motion, no tenderness, supple, no stridor. [] Cardiovascular: bradycardia Lungs & Thorax: Bilateral breath sounds clear to auscultation [] Abdomen: Bowel sounds normal, soft, no tenderness, no masses, no pulsatile masses. [] Skin: Warm, dry, no erythema, no rash. [] Back: No tenderness, no CVA tenderness. [] Extremities: No tenderness, no cyanosis, no edema. [] Neurologic: Alert and oriented X 3, no focal deficits noted. [] Psychologic: Affect normal, judgement normal, mood normal. [] General: Alert, Oriented X3, Cooperative, No acute distress HEENT: Atraumatic, Mucous membr. moist/pink Lungs: Clear to auscultation Breasts: Not examined Rectal Exam: not examined PELVIC: Examination not indicated Extremities: No cyanosis Neuro: Normal speech, Cranial nerves 3-12 NL Psych/Mental Status: Mental status NL, Mood NL Vitals Vitals Vital Signs Date Time Temp Pulse Resp B/P (MAP) Pulse Ox O2 Delivery O2 Flow Rate FiO2 05/12/19 09:55 97.9 53 14 161/69 (99) 96 Room Air 97.9 Labs Labs Laboratory Tests Test 05/12/19 10:15 White Blood Count 2.9 x10^3/uL (4.0-11.0) Red Blood Count 4.05 x10^6/uL (3.50-5.40) Hemoglobin 12.4 g/dL (12.0-15.5) Hematocrit 37.3 % (36.0-47.0) Mean Corpuscular Volume 92 fL (79-100) Mean Corpuscular Hemoglobin 31 pg (25-35) Mean Corpuscular Hemoglobin Concent 33 g/dL (31-37) Red Cell Distribution Width 15.2 % (11.5-14.5) Platelet Count 223 x10^3/uL (140-400) Neutrophils (%) (Auto) 38 % (31-73) Lymphocytes (%) (Auto) 45 % (24-48) Monocytes (%) (Auto) 13 % (0-9) Eosinophils (%) (Auto) 3 % (0-3) Basophils (%) (Auto) 1 % (0-3) Neutrophils # (Auto) 1.1 x10^3/uL (1.8-7.7) Lymphocytes # (Auto) 1.3 x10^3/uL (1.0-4.8) Monocytes # (Auto) 0.4 x10^3/uL (0.0-1.1) Eosinophils # (Auto) 0.1 x10^3/uL (0.0-0.7) Basophils # (Auto) 0.0 x10^3/uL (0.0-0.2) D-Dimer (Pilar) 0.53 ug/mlFEU (0.00-0.50) Sodium Level 140 mmol/L (136-145) Potassium Level 4.0 mmol/L (3.5-5.1) Chloride Level 104 mmol/L (98-107) Carbon Dioxide Level 27 mmol/L (21-32) Anion Gap 9 (6-14) Blood Urea Nitrogen 11 mg/dL (7-20) Creatinine 1.0 mg/dL (0.6-1.0) Estimated GFR (Cockcroft-Gault) 64.7 BUN/Creatinine Ratio 11 (6-20) Glucose Level 113 mg/dL (70-99) Calcium Level 9.5 mg/dL (8.5-10.1) Magnesium Level 1.9 mg/dL (1.8-2.4) Total Bilirubin 0.4 mg/dL (0.2-1.0) Aspartate Amino Transf (AST/SGOT) 18 U/L (15-37) Alanine Aminotransferase (ALT/SGPT) 25 U/L (14-59) Alkaline Phosphatase 143 U/L (46-116) Troponin I Quantitative < 0.017 ng/mL (0.000-0.055) Total Protein 7.4 g/dL (6.4-8.2) Albumin 3.1 g/dL (3.4-5.0) Albumin/Globulin Ratio 0.7 (1.0-1.7) Laboratory Tests Test 05/12/19 10:15 White Blood Count 2.9 x10^3/uL (4.0-11.0) Red Blood Count 4.05 x10^6/uL (3.50-5.40) Hemoglobin 12.4 g/dL (12.0-15.5) Hematocrit 37.3 % (36.0-47.0) Mean Corpuscular Volume 92 fL (79-100) Mean Corpuscular Hemoglobin 31 pg (25-35) Mean Corpuscular Hemoglobin Concent 33 g/dL (31-37) Red Cell Distribution Width 15.2 % (11.5-14.5) Platelet Count 223 x10^3/uL (140-400) Neutrophils (%) (Auto) 38 % (31-73) Lymphocytes (%) (Auto) 45 % (24-48) Monocytes (%) (Auto) 13 % (0-9) Eosinophils (%) (Auto) 3 % (0-3) Basophils (%) (Auto) 1 % (0-3) Neutrophils # (Auto) 1.1 x10^3/uL (1.8-7.7) Lymphocytes # (Auto) 1.3 x10^3/uL (1.0-4.8) Monocytes # (Auto) 0.4 x10^3/uL (0.0-1.1) Eosinophils # (Auto) 0.1 x10^3/uL (0.0-0.7) Basophils # (Auto) 0.0 x10^3/uL (0.0-0.2) D-Dimer (Pilar) 0.53 ug/mlFEU (0.00-0.50) Sodium Level 140 mmol/L (136-145) Potassium Level 4.0 mmol/L (3.5-5.1) Chloride Level 104 mmol/L (98-107) Carbon Dioxide Level 27 mmol/L (21-32) Anion Gap 9 (6-14) Blood Urea Nitrogen 11 mg/dL (7-20) Creatinine 1.0 mg/dL (0.6-1.0) Estimated GFR (Cockcroft-Gault) 64.7 BUN/Creatinine Ratio 11 (6-20) Glucose Level 113 mg/dL (70-99) Calcium Level 9.5 mg/dL (8.5-10.1) Magnesium Level 1.9 mg/dL (1.8-2.4) Total Bilirubin 0.4 mg/dL (0.2-1.0) Aspartate Amino Transf (AST/SGOT) 18 U/L (15-37) Alanine Aminotransferase (ALT/SGPT) 25 U/L (14-59) Alkaline Phosphatase 143 U/L (46-116) Troponin I Quantitative < 0.017 ng/mL (0.000-0.055) Total Protein 7.4 g/dL (6.4-8.2) Albumin 3.1 g/dL (3.4-5.0) Albumin/Globulin Ratio 0.7 (1.0-1.7) VTE Prophylaxis Ordered VTE Prophylaxis Devices: Yes VTE Pharmacological Prophylaxi: Yes Assessment/Plan Assessment/Plan Impression: Syncope and collapse MYELOMA Bradycardia multiple myeloma. She has done well with palliative radiation now to the left iliac bone. OBESITY ADMITTED CVC BED CONSULT CARDIOLOGY CONSULT NEUROLOGY NEUROCHECKS Q 4 HRS ECHO DVT PROPHYLAXIS 76 MIN PT EXAM, CHART REVIEW, > 50% OF TIME SPENT WITH EXAM, CHART REVIEW, PT CARE COORDINATION DEVIKA CALHOUN MD May 12, 2019 11:40
[2019-05-12] MEDS ORDERED: ONDANSETRON PF 4 MG/2 ML VIAL. IV PRN ×2 (11:45→14:00)
--- NOTE | 2019-05-12 13:22 | EKG ---
[facility] [address] [place] [address] Test Date: 2019-05-12 Test Time: 10:05:20 Pat Name: JUAN F GOLD Department: Room: 209 1 Gender: F Schedule Supervisor: : 1940 Requested By: JACEK DAVIS Order Number: [id number] Reading MD: Dawson Glover MD Measurements Intervals [place] Rate: 48 P: 37 AL: 156 QRS: -7 QRSD: 76 T: 15 QT: 430 QTc: 390 Interpretive Statements SINUS BRADYCARDIA Electronically Signed On 05-21-2019 12:05:01 CDT by Dawson Glover MD
[2019-05-12] MEDS ORDERED: 0.9 % SODIUM CHLORIDE 10 ML DISP.SYRIN. IV PRN (14:00)
[2019-05-12] MEDS ORDERED: HYDROcodone/APAP 5/325MG 1 TAB TABLET PO PRN (14:00)
[2019-05-12] MEDS ORDERED: ALBUTEROL SULFATE 2.5 MG/3 ML NEBU. NEB PRN (14:00)
[2019-05-12] MEDS ORDERED: guaiFENesin ORAL 200 MG/10 ML LIQUID. PO PRN (14:00)
[2019-05-12] MEDS ORDERED: DOCUSATE SODIUM 100 MG CAPSULE. PO PRN (14:00)
[2019-05-12] MEDS ORDERED: fentaNYL 25MCG/HR PATCH 1 PATCH PATCH.TD72 TD SCH (14:00)
[2019-05-12] MEDS ORDERED: ACETAMINOPHEN 325 MG TABLET. PO PRN (14:00)
[2019-05-12 15:00] VITALS: BP 137/61
[2019-05-12] MEDS: DOCUSATE SODIUM 100 MG CAPSULE. PO SCH (15:00)
[2019-05-12] MEDS ORDERED: ENOXAPARIN 40 MG/0.4 ML SYRINGE. SQ SCH (15:00)
[2019-05-12] MEDS ORDERED: ASPIRIN ENTERIC COATED 81 MG TABLET.DR. PO SCH (15:00)
--- NOTE | 2019-05-12 15:02 | RAD ---
Ultrasound carotid Doppler 05/12/2019 1:55 PM INDICATION: Syncope COMPARISON: None available TECHNIQUE: Sonographic imaging of the carotid vasculature was performed utilizing grayscale, color Doppler and spectral waveform analysis. FINDINGS: (All velocities are measured cm per second) Right carotid: Minor plaque is noted without significant grayscale narrowing. Peak systolic velocity: Proximal common carotid artery: 60 Middle common carotid artery: 64 Distal common carotid artery: 70 Proximal internal carotid artery: 45 Middle internal carotid artery: 75 Distal internal carotid artery: 105 End-diastolic velocity: 37 External carotid artery: 92 Internal carotid artery/common carotid artery ratio: 0.7-1.6 Vertebral artery: Antegrade flow Left carotid: Minor plaque is noted without significant grayscale narrowing. Peak systolic velocity: Proximal common carotid artery: 97 Middle common carotid artery: 79 Distal common carotid artery: 61 Proximal internal carotid artery: 67 Middle internal carotid artery: 86 Distal internal carotid artery: 97 End-diastolic velocity: 33 External carotid artery: 92 Internal carotid artery/common carotid artery ratio: 0.8-1.2 Vertebral artery: Antegrade flow IMPRESSION: 1. No evidence for flow-limiting carotid stenosis. 2. Antegrade flow is identified in the vertebral arteries. 3. Evaluation of the carotid vasculature and measurements for luminal stenosis was performed utilizing NASCET criteria. Electronically signed by: Aimee Wilks MD (05/12/2019 2:59 PM) [facility]
[2019-05-12] MEDS: POTASSIUM CHLORIDE 10 MEQ TABLET.ER. PO SCH (15:38)
[2019-05-12] MEDS: MULTIVITAMIN with MINERAL TABLET. PO SCH (15:38)
[2019-05-12] MEDS: GABAPENTIN 100 MG CAPSULE. PO SCH ×2 (15:38→20:22)
[2019-05-12] MEDS: CHOLECALCIFEROL (VITAMIN D3) 1,000 UNIT TABLET PO SCH (15:38)
[2019-05-12] MEDS ORDERED: LIDO30CR TP (16:22)
[2019-05-12] MEDS ORDERED: ONDA4TAB12 PO (16:22)
[2019-05-12] MEDS ORDERED: PROC10TA57 PO (16:22)
--- NOTE | 2019-05-12 16:49 | PDOC ---
Provider Note Provider Note Med Onc consult: See dictation [id number] 1. Multiple Myeloma 09/11/2014. Started daratumumab on 01/05/2019. She is tolerating it very well. She did notice more fatigued than usual. s/p cycle #5 day 1from 04/28/19. IgG level has been getting worse and the kappa light chains are also worse as of 02/16/2019. In view of worsening markers I addedpomalidomide 4 mg dose from 04/24/19(last dose on 05/09/19) and Decadron 20 mg q. weekly from 04/25/19 which was discontinued due to anxiety. 2. Bradycardia - consult cardiology. JERMAN MATA MD May 12, 2019 16:49
--- NOTE | 2019-05-12 17:22 | CONS ---
DATE OF CONSULTATION: 05/12/2019 MEDICAL ONCOLOGY CONSULTATION REQUESTING PHYSICIAN: Dr. Zachery Ruelas. REASON FOR CONSULTATION: Multiple myeloma, on chemotherapy. HISTORY OF PRESENT ILLNESS: The patient is a 78-year-old -[place] female, who was diagnosed with multiple myeloma on 09/11/2014 by a bone marrow biopsy, which revealed 50-60% plasma cells in addition to CLL. She had evidence of IgG kappa paraprotein. She was started on chemotherapy with Velcade, dexamethasone and Revlimid on 09/24/2014. She was unable to tolerate Revlimid. She felt very weak and she had a syncopal episode and hence it was discontinued. She had disease progression in 03/2017 and she was started on Kyprolis and dexamethasone on 04/01/2017. She had disease progression in 11/2018 and hence she was started on daratumumab from 01/05/2019. She had worsening tumor markers and hence pomalidomide was added on 04/24/2019 along with Decadron on 04/25/2019. She has significant anxiety and hence Decadron was discontinued. Her last dose of pomalidomide was on 05/09/2019. She was at my office to get daratumumab cycle #5, day #8 on 05/05/2019. However, she was noted to have bradycardia with a heart rate in the 40s and she had a syncopal episode and hence EMS was called and the patient was transferred to [facility] for further evaluation. She lost consciousness transiently and then she regained consciousness and she was fully oriented. PAST MEDICAL HISTORY: Chronic back pain, appendectomy, section, breast biopsy. SOCIAL HISTORY: No smoking or alcohol abuse. FAMILY HISTORY: Negative for malignancy. REVIEW OF SYSTEMS: A 12-point review of system was performed. Pertinent positives are mentioned in the history of presenting illness. Rest of the system review is negative. PHYSICAL EXAMINATION: GENERAL APPEARANCE: The patient is a 78-year-old -[place] female, who is in no acute cardiorespiratory distress. VITAL SIGNS: Blood pressure 137/61, temperature 97.8, and heart rate ranging between 48-68. HEENT: Head: Atraumatic, normocephalic. Eyes: No icterus. NECK: Supple. CHEST: Bilaterally symmetrical. HEART: S1, S2 normal. ABDOMEN: Soft, nontender. CENTRAL NERVOUS SYSTEM: No focal deficits. LYMPHATICS: No lymphadenopathy. SKIN: No rashes. PSYCHOLOGIC: Mood and affect are appropriate. LABORATORY DATA: WBC 2.9, hemoglobin 12.4, and platelet count 223. Creatinine 1.0. IMPRESSION AND PLAN: 1. Multiple myeloma, IgG kappa type. She has been previously treated with Velcade, Revlimid and Decadron and Revlimid was discontinued because of syncopal episode. She was then treated with Kyprolis and dexamethasone due to disease progression. It was then switched to daratumumab on 01/05/2019 due to disease progression. Pomalidomide was added on 04/24/2019. She has had significant anxiety and hence Decadron was discontinued. I will continue to monitor for toxicities closely. Her last treatment with daratumumab was on 04/28/2019 and her last treatment with pomalidomide was on 05/09/2019. 2. Bradycardia and syncopal episode. Await Cardiology consultation and recommendations. 3. Chronic lymphocytic leukemia, stage 0, noted incidentally on the bone marrow biopsy during the workup for multiple myeloma. JERMAN MATA MD DR: MELO/amara JOB#: [id number] / [id number]
[2019-05-12 19:02] VITALS: BP 142/63
[2019-05-12] MEDS: ACYCLOVIR 200 MG CAPSULE. PO SCH (20:22)
[2019-05-12] MEDS ORDERED: MONTELUKAST SODIUM 10 MG TABLET. PO SCH (21:00)
[2019-05-12 23:10] VITALS: BP 122/60
[2019-05-13 03:22] VITALS: BP 132/59
[2019-05-13 04:15] LABS: BASO % 1 % (0-3); EOS # 0.1 x10^3/uL (0.0-0.7); EOS % 5 % (0-3); HEMATOCRIT 36.5 % (36.0-47.0); HEMOGLOBIN 12.1 g/dL (12.0-15.5); LYMPH # 1.2 x10^3/uL (1.0-4.8); LYMPH % 47 % (24-48); MEAN CORPUSCULAR HEMOGLOBIN 31 pg (25-35); MEAN CORPUSCULAR HGB CONC 33 g/dL (31-37); MEAN CORPUSCULAR VOLUME 92 fL (79-100); MONO # 0.4 x10^3/uL (0.0-1.1); MONO % 16 % (0-9); NEUT # 0.8 x10^3/uL (1.8-7.7); NEUT % 32 % (31-73); PLATELET COUNT 219 x10^3/uL (140-400); RED BLOOD COUNT 3.98 x10^6/uL (3.50-5.40); RED CELL DISTRIBUTION WIDTH 15.1 % (11.5-14.5); WHITE BLOOD COUNT 2.6 x10^3/uL (4.0-11.0)
[2019-05-13 04:29] LABS: ALBUMIN 2.9 g/dL (3.4-5.0); ALBUMIN/GLOBULIN RATIO 0.7 (1.0-1.7); CALCIUM 9.4 mg/dL (8.5-10.1); CREATININE 0.9 mg/dL (0.6-1.0); GFR 73.1; POTASSIUM 4.1 mmol/L (3.5-5.1); TOTAL BILIRUBIN 0.4 mg/dL (0.2-1.0); TOTAL PROTEIN 6.9 g/dL (6.4-8.2)
[2019-05-13 05:30] LABS: % ATYL 2 % (0-0); % BANDS 2 % (0-9); % BASOS 1 % (0-3); % EOS 3 % (0-5); % LYMPHS 50 % (24-48); % MONOS 11 % (0-10); % SEGS 31 % (35-66); PLT ESTIMATE ADEQUATE (ADEQUATE)
[2019-05-13 05:31] LABS: ANISOCYTOSIS SLIGHT; OVALOCYTES FEW; POIKILOCYTOSIS SLIGHT
[2019-05-13 05:32] LABS: HELMET CELLS OCC; SCHISTOCYTES OCC
[2019-05-13 07:00] VITALS: BP 131/63
[2019-05-13] MEDS ORDERED: ASPIRIN 325 MG TABLET PO SCH (08:00)
[2019-05-13] MEDS: DOCUSATE SODIUM 100 MG CAPSULE. PO SCH (09:00)
--- NOTE | 2019-05-13 09:11 | PDOC ---
PROGRESS NOTES Subjective Subjective HPI - f/u of Multiple myeloma ROS - no CP Objective Objective Vital Signs Date Time Temp Pulse Resp B/P (MAP) Pulse Ox O2 Delivery O2 Flow Rate FiO2 05/13/19 07:00 97.5 51 16 131/63 (85) 98 Room Air 97.5 Intake and Output 05/13/19 07:00 Intake Total 650 ml Balance 650 ml Intake Oral 650 ml # Voids 1 Physical Exam Heart: Normal S1, Normal S2 General: Alert, Oriented X3 Lungs: Clear to auscultation Neuro: Normal speech Psych/Mental Status: Mental status NL Assessment Assessment Problems Medical Problems: (1) Bradycardia Status: Acute (2) Syncope and collapse Status: Acute IMPRESSION AND PLAN: 1. Multiple myeloma, IgG kappa type. She has been previously treated with Velcade, Revlimid and Decadron and Revlimid was discontinued because of syncopal episode. She was then treated with Kyprolis and dexamethasone due to disease progression. It was then switched to daratumumab on 01/05/2019 due to disease progression. Pomalidomide was added on 04/24/2019. She has had significant anxiety and hence Decadron was discontinued. I will continue to monitor for toxicities closely. Her last treatment with daratumumab was on 04/28/2019 and her last treatment with pomalidomide was on 05/09/2019. 2. Bradycardia and syncopal episode. Await Cardiology consultation and recommendations. Rate is now 50-70. 3. Chronic lymphocytic leukemia, stage 0, noted incidentally on the bone marrow biopsy during the workup for multiple myeloma. 4. I d/w RN. Ok to use portacath. Comment Review of Relevant I have reviewed the following items astrid (where applicable) has been applied. Labs Laboratory Tests Test 05/12/19 10:15 05/12/19 11:21 05/12/19 14:50 05/13/19 04:10 White Blood Count 2.9 x10^3/uL (4.0-11.0) 2.6 x10^3/uL (4.0-11.0) Red Blood Count 4.05 x10^6/uL (3.50-5.40) 3.98 x10^6/uL (3.50-5.40) Hemoglobin 12.4 g/dL (12.0-15.5) 12.1 g/dL (12.0-15.5) Hematocrit 37.3 % (36.0-47.0) 36.5 % (36.0-47.0) Mean Corpuscular Volume 92 fL (79-100) 92 fL (79-100) Mean Corpuscular Hemoglobin 31 pg (25-35) 31 pg (25-35) Mean Corpuscular Hemoglobin Concent 33 g/dL (31-37) 33 g/dL (31-37) Red Cell Distribution Width 15.2 % (11.5-14.5) 15.1 % (11.5-14.5) Platelet Count 223 x10^3/uL (140-400) 219 x10^3/uL (140-400) Neutrophils (%) (Auto) 38 % (31-73) 32 % (31-73) Lymphocytes (%) (Auto) 45 % (24-48) 47 % (24-48) Monocytes (%) (Auto) 13 % (0-9) 16 % (0-9) Eosinophils (%) (Auto) 3 % (0-3) 5 % (0-3) Basophils (%) (Auto) 1 % (0-3) 1 % (0-3) Neutrophils # (Auto) 1.1 x10^3/uL (1.8-7.7) 0.8 x10^3/uL (1.8-7.7) Lymphocytes # (Auto) 1.3 x10^3/uL (1.0-4.8) 1.2 x10^3/uL (1.0-4.8) Monocytes # (Auto) 0.4 x10^3/uL (0.0-1.1) 0.4 x10^3/uL (0.0-1.1) Eosinophils # (Auto) 0.1 x10^3/uL (0.0-0.7) 0.1 x10^3/uL (0.0-0.7) Basophils # (Auto) 0.0 x10^3/uL (0.0-0.2) 0.0 x10^3/uL (0.0-0.2) D-Dimer (Pilar) 0.53 ug/mlFEU (0.00-0.50) Sodium Level 140 mmol/L (136-145) 142 mmol/L (136-145) Potassium Level 4.0 mmol/L (3.5-5.1) 4.1 mmol/L (3.5-5.1) Chloride Level 104 mmol/L (98-107) 105 mmol/L (98-107) Carbon Dioxide Level 27 mmol/L (21-32) 30 mmol/L (21-32) Anion Gap 9 (6-14) 7 (6-14) Blood Urea Nitrogen 11 mg/dL (7-20) 10 mg/dL (7-20) Creatinine 1.0 mg/dL (0.6-1.0) 0.9 mg/dL (0.6-1.0) Estimated GFR (Cockcroft-Gault) 64.7 73.1 BUN/Creatinine Ratio 11 (6-20) 11 (6-20) Glucose Level 113 mg/dL (70-99) 102 mg/dL (70-99) Calcium Level 9.5 mg/dL (8.5-10.1) 9.4 mg/dL (8.5-10.1) Magnesium Level 1.9 mg/dL (1.8-2.4) Total Bilirubin 0.4 mg/dL (0.2-1.0) 0.4 mg/dL (0.2-1.0) Aspartate Amino Transf (AST/SGOT) 18 U/L (15-37) 14 U/L (15-37) Alanine Aminotransferase (ALT/SGPT) 25 U/L (14-59) 21 U/L (14-59) Alkaline Phosphatase 143 U/L (46-116) 128 U/L (46-116) Troponin I Quantitative < 0.017 ng/mL (0.000-0.055) < 0.017 ng/mL (0.000-0.055) Total Protein 7.4 g/dL (6.4-8.2) 6.9 g/dL (6.4-8.2) Albumin 3.1 g/dL (3.4-5.0) 2.9 g/dL (3.4-5.0) Albumin/Globulin Ratio 0.7 (1.0-1.7) 0.7 (1.0-1.7) Lactic Acid Level 1.0 mmol/L (0.4-2.0) Segmented Neutrophils % 31 % (35-66) Band Neutrophils % 2 % (0-9) Lymphocytes % 50 % (24-48) Atypical Lymphocytes % (Manual) 2 % (0-0) Monocytes % 11 % (0-10) Eosinophils % 3 % (0-5) Basophils % 1 % (0-3) Platelet Estimate Adequate (ADEQUATE) Poikilocytosis Slight Anisocytosis Slight Ovalocytes Few Helmet Cells Occ Schistocytes Occ Laboratory Tests Test 05/12/19 10:15 05/12/19 11:21 05/12/19 14:50 05/13/19 04:10 White Blood Count 2.9 x10^3/uL (4.0-11.0) 2.6 x10^3/uL (4.0-11.0) Red Blood Count 4.05 x10^6/uL (3.50-5.40) 3.98 x10^6/uL (3.50-5.40) Hemoglobin 12.4 g/dL (12.0-15.5) 12.1 g/dL (12.0-15.5) Hematocrit 37.3 % (36.0-47.0) 36.5 % (36.0-47.0) Mean Corpuscular Volume 92 fL (79-100) 92 fL (79-100) Mean Corpuscular Hemoglobin 31 pg (25-35) 31 pg (25-35) Mean Corpuscular Hemoglobin Concent 33 g/dL (31-37) 33 g/dL (31-37) Red Cell Distribution Width 15.2 % (11.5-14.5) 15.1 % (11.5-14.5) Platelet Count 223 x10^3/uL (140-400) 219 x10^3/uL (140-400) Neutrophils (%) (Auto) 38 % (31-73) 32 % (31-73) Lymphocytes (%) (Auto) 45 % (24-48) 47 % (24-48) Monocytes (%) (Auto) 13 % (0-9) 16 % (0-9) Eosinophils (%) (Auto) 3 % (0-3) 5 % (0-3) Basophils (%) (Auto) 1 % (0-3) 1 % (0-3) Neutrophils # (Auto) 1.1 x10^3/uL (1.8-7.7) 0.8 x10^3/uL (1.8-7.7) Lymphocytes # (Auto) 1.3 x10^3/uL (1.0-4.8) 1.2 x10^3/uL (1.0-4.8) Monocytes # (Auto) 0.4 x10^3/uL (0.0-1.1) 0.4 x10^3/uL (0.0-1.1) Eosinophils # (Auto) 0.1 x10^3/uL (0.0-0.7) 0.1 x10^3/uL (0.0-0.7) Basophils # (Auto) 0.0 x10^3/uL (0.0-0.2) 0.0 x10^3/uL (0.0-0.2) D-Dimer (Pilar) 0.53 ug/mlFEU (0.00-0.50) Sodium Level 140 mmol/L (136-145) 142 mmol/L (136-145) Potassium Level 4.0 mmol/L (3.5-5.1) 4.1 mmol/L (3.5-5.1) Chloride Level 104 mmol/L (98-107) 105 mmol/L (98-107) Carbon Dioxide Level 27 mmol/L (21-32) 30 mmol/L (21-32) Anion Gap 9 (6-14) 7 (6-14) Blood Urea Nitrogen 11 mg/dL (7-20) 10 mg/dL (7-20) Creatinine 1.0 mg/dL (0.6-1.0) 0.9 mg/dL (0.6-1.0) Estimated GFR (Cockcroft-Gault) 64.7 73.1 BUN/Creatinine Ratio 11 (6-20) 11 (6-20) Glucose Level 113 mg/dL (70-99) 102 mg/dL (70-99) Calcium Level 9.5 mg/dL (8.5-10.1) 9.4 mg/dL (8.5-10.1) Magnesium Level 1.9 mg/dL (1.8-2.4) Total Bilirubin 0.4 mg/dL (0.2-1.0) 0.4 mg/dL (0.2-1.0) Aspartate Amino Transf (AST/SGOT) 18 U/L (15-37) 14 U/L (15-37) Alanine Aminotransferase (ALT/SGPT) 25 U/L (14-59) 21 U/L (14-59) Alkaline Phosphatase 143 U/L (46-116) 128 U/L (46-116) Troponin I Quantitative < 0.017 ng/mL (0.000-0.055) < 0.017 ng/mL (0.000-0.055) Total Protein 7.4 g/dL (6.4-8.2) 6.9 g/dL (6.4-8.2) Albumin 3.1 g/dL (3.4-5.0) 2.9 g/dL (3.4-5.0) Albumin/Globulin Ratio 0.7 (1.0-1.7) 0.7 (1.0-1.7) Lactic Acid Level 1.0 mmol/L (0.4-2.0) Segmented Neutrophils % 31 % (35-66) Band Neutrophils % 2 % (0-9) Lymphocytes % 50 % (24-48) Atypical Lymphocytes % (Manual) 2 % (0-0) Monocytes % 11 % (0-10) Eosinophils % 3 % (0-5) Basophils % 1 % (0-3) Platelet Estimate Adequate (ADEQUATE) Poikilocytosis Slight Anisocytosis Slight Ovalocytes Few Helmet Cells Occ Schistocytes Occ Medications Current Medications Ondansetron HCl (Zofran) 4 mg PRN Q8HRS PRN IV NAUSEA/VOMITING; Start 05/12/19 at 11:45; Stop 05/13/19 at 11:44 Sodium Chloride (Normal Saline Flush) 3 ml QSHIFT PRN IV AFTER MEDS AND BLOOD DRAWS; Start 05/12/19 at 14:00 Ondansetron HCl (Zofran) 4 mg PRN Q4HRS PRN IV NAUSEA/VOMITING; Start 05/12/19 at 14:00 Acetaminophen (Tylenol) 650 mg PRN Q4HRS PRN PO TEMP OVER 100.4F OR MILD PAIN; Start 05/12/19 at 14:00 Docusate Sodium (Colace) 100 mg PRN BID PRN PO CONSTIPATION; Start 05/12/19 at 14:00 Albuterol Sulfate (Ventolin Neb Soln) 2.5 mg PRN Q4HRS PRN NEB SHORTNESS OF BREATH; Start 05/12/19 at 14:00 Guaifenesin (Robitussin) 200 mg PRN Q4HRS PRN PO COUGH; Start 05/12/19 at 14:00 Enoxaparin Sodium (Lovenox 40mg Syringe) 40 mg Q24H SQ Last administered on 05/12/19 15:38; Start 05/12/19 at 15:00 Aspirin (Ecotrin) 81 mg DAILY PO ; Start 05/12/19 at 15:00; Stop 05/12/19 at 20:00; Status DC Docusate Sodium (Colace) 100 mg DAILY PO ; Start 05/12/19 at 15:00 Fentanyl (Duragesic 25mcg/ Hr Patch) 1 patch Q72H TD Last administered on 05/12/19at 15:39; Start 05/12/19 at 14:00 Gabapentin (Neurontin) 100 mg TID PO Last administered on 05/12/19 20:22; Start 05/12/19 at 14:00 Acetaminophen/ Hydrocodone Bitart (Lortab 5/325) 1 tab PRN Q4HRS PRN PO breakthru pain; Start 05/12/19 at 14:00 Montelukast Sodium (Singulair) 10 mg HS PO Last administered on 05/12/19 20:22; Start 05/12/19 at 21:00 Potassium Chloride (Klor-Con) 10 meq DAILY PO Last administered on 05/12/19at 15:38; Start 05/12/19 at 15:00 Trimethoprim/ Sulfamethoxazole (Bactrim Ds) 1 tab MoTh PO ; Start 05/15/19 at 08:00 Acyclovir (Zovirax) 800 mg BID PO Last administered on 05/12/19 20:22; Start 05/12/19 at 21:00 Vitamin D (Vitamin D3) 4,000 unit DAILY PO Last administered on 05/12/19 15:38; Start 05/12/19 at 15:00 Multivitamins (Thera M Plus) 1 tab DAILY PO Last administered on 05/12/19at 15:38; Start 05/12/19 at 15:00 Aspirin (Amina Aspirin) 325 mg DAILYWBKFT PO ; Start 05/13/19 at 08:00 Active Scripts Active Reported Lidocaine-Prilocaine Cream (Lidocaine/Prilocaine) 30 Gm Cream..g. 1 Ana TP UD Ondansetron Odt (Ondansetron) 4 Mg Tab.rapdis 1 Tab PO PRN Q6-8HRS Compazine (Prochlorperazine Maleate) 10 Mg Tablet 1 Tab PO PRN Q6HRS PRN 30 Days [daratumumab ] IV WEEKLY Bactrim Ds Tablet (Sulfamethoxazole/Trimethoprim) 1 Each Tablet 1 Each PO WEDNESDAY AND WEDNESDAY Montelukast Sodium Tablet (Montelukast Sodium) 10 Mg Tablet 10 Mg PO HS DURAGESIC 25mcg/hr (Fentanyl) 1 Each Patch.td72 1 Patch TD Q72H Potassium Chloride 10 Meq Tab.sr.24h 10 Meq PO DAILY Multivitamins (Multivitamin) 1 Each Tablet 1 Tab PO DAILY Hudson 5-325 Tablet (Acetaminophen/Hydrocodone Bitart) 1 Each Tablet 1 Tab PO PRN Q4HRS PRN Gabapentin (Gabapentin) 100 Mg Capsule 100 Mg PO TID Colace (Docusate Sodium) 100 Mg Capsule 1 Cap PO DAILY Aspir 81 (Aspirin) 81 Mg Tablet.dr 1 Tab PO DAILY Xanax (Alprazolam) 0.5 Mg Tablet 0.5 Mg PO PRN Q6HRS PRN Acyclovir 800 Mg Tablet 1 Tab PO BID Vitals/I & O Vital Sign - Last 24 Hours 05/12/19 05/12/19 05/12/19 05/12/19 09:55 10:29 10:59 11:29 Temp 97.9 97.9 Pulse 53 52 48 49 Resp 14 16 14 14 B/P (MAP) 161/69 (99) Pulse Ox 96 96 96 99 O2 Delivery Room Air 05/12/19 05/12/19 05/12/19 05/12/19 12:20 15:00 15:39 16:46 Temp 97.8 97.8 Pulse 68 53 Resp 14 18 20 B/P (MAP) 137/61 (86) Pulse Ox 99 96 O2 Delivery Nasal Cannula Room Air Room Air 05/12/19 05/12/19 05/12/19 05/12/19 19:02 19:39 20:10 23:10 Temp 97.8 98.7 97.8 98.7 Pulse 51 60 Resp 16 20 16 B/P (MAP) 142/63 (89) 122/60 (80) Pulse Ox 97 96 O2 Delivery Room Air Room Air Room Air Room Air 05/13/19 05/13/19 03:22 07:00 Temp 98.2 97.5 98.2 97.5 Pulse 52 51 Resp 16 16 B/P (MAP) 132/59 (83) 131/63 (85) Pulse Ox 96 98 O2 Delivery Room Air Room Air Intake and Output 05/12/19 05/12/19 05/13/19 15:00 23:00 07:00 Intake Total 250 ml 400 ml Balance 250 ml 400 ml JERMAN MATA MD May 13, 2019 09:11
[2019-05-13] MEDS: CHOLECALCIFEROL (VITAMIN D3) 1,000 UNIT TABLET PO SCH (09:12)
[2019-05-13] MEDS: MULTIVITAMIN with MINERAL TABLET. PO SCH (09:12)
[2019-05-13] MEDS: ACYCLOVIR 200 MG CAPSULE. PO SCH (09:12)
[2019-05-13] MEDS: GABAPENTIN 100 MG CAPSULE. PO SCH ×2 (09:12→14:31)
[2019-05-13] MEDS: POTASSIUM CHLORIDE 10 MEQ TABLET.ER. PO SCH (09:12)
--- NOTE | 2019-05-13 11:12 | PDOC ---
[employer] PROGRESS NOTE Chief Complaint Chief Complaint Syncope Bradycardia Multiple myeloma CLL stage 0 History of Present Illness History of Present Illness 05/13/19 Pt seen and examined Pt was sitting upright in chair Pleasant and NAD Pt reported having a syncopal episode this morning Pt reported episodes of panic attacks and anxiety Chart and labs reviewed HR is between 50-60 D/w RN Vitals/I&O Vitals/I&O: Vital Signs Date Time Temp Pulse Resp B/P (MAP) Pulse Ox O2 Delivery O2 Flow Rate FiO2 05/13/19 07:00 97.5 51 16 131/63 (85) 98 Room Air 97.5 I & O 05/12/19 05/12/19 05/13/19 15:00 23:00 07:00 Intake Total 250 ml 400 ml Balance 250 ml 400 ml Physical Exam General: Alert, Oriented X3, Cooperative, No acute distress Heart: Normal S1, Normal S2 Lungs: Clear Extremities: No cyanosis Labs Labs: Laboratory Tests Test 05/12/19 11:21 05/12/19 14:50 05/13/19 04:10 Lactic Acid Level 1.0 mmol/L (0.4-2.0) Troponin I Quantitative < 0.017 ng/mL (0.000-0.055) White Blood Count 2.6 x10^3/uL (4.0-11.0) Red Blood Count 3.98 x10^6/uL (3.50-5.40) Hemoglobin 12.1 g/dL (12.0-15.5) Hematocrit 36.5 % (36.0-47.0) Mean Corpuscular Volume 92 fL (79-100) Mean Corpuscular Hemoglobin 31 pg (25-35) Mean Corpuscular Hemoglobin Concent 33 g/dL (31-37) Red Cell Distribution Width 15.1 % (11.5-14.5) Platelet Count 219 x10^3/uL (140-400) Neutrophils (%) (Auto) 32 % (31-73) Lymphocytes (%) (Auto) 47 % (24-48) Monocytes (%) (Auto) 16 % (0-9) Eosinophils (%) (Auto) 5 % (0-3) Basophils (%) (Auto) 1 % (0-3) Neutrophils # (Auto) 0.8 x10^3/uL (1.8-7.7) Lymphocytes # (Auto) 1.2 x10^3/uL (1.0-4.8) Monocytes # (Auto) 0.4 x10^3/uL (0.0-1.1) Eosinophils # (Auto) 0.1 x10^3/uL (0.0-0.7) Basophils # (Auto) 0.0 x10^3/uL (0.0-0.2) Segmented Neutrophils % 31 % (35-66) Band Neutrophils % 2 % (0-9) Lymphocytes % 50 % (24-48) Atypical Lymphocytes % (Manual) 2 % (0-0) Monocytes % 11 % (0-10) Eosinophils % 3 % (0-5) Basophils % 1 % (0-3) Platelet Estimate Adequate (ADEQUATE) Poikilocytosis Slight Anisocytosis Slight Ovalocytes Few Helmet Cells Occ Schistocytes Occ Sodium Level 142 mmol/L (136-145) Potassium Level 4.1 mmol/L (3.5-5.1) Chloride Level 105 mmol/L (98-107) Carbon Dioxide Level 30 mmol/L (21-32) Anion Gap 7 (6-14) Blood Urea Nitrogen 10 mg/dL (7-20) Creatinine 0.9 mg/dL (0.6-1.0) Estimated GFR (Cockcroft-Gault) 73.1 BUN/Creatinine Ratio 11 (6-20) Glucose Level 102 mg/dL (70-99) Calcium Level 9.4 mg/dL (8.5-10.1) Total Bilirubin 0.4 mg/dL (0.2-1.0) Aspartate Amino Transf (AST/SGOT) 14 U/L (15-37) Alanine Aminotransferase (ALT/SGPT) 21 U/L (14-59) Alkaline Phosphatase 128 U/L (46-116) Total Protein 6.9 g/dL (6.4-8.2) Albumin 2.9 g/dL (3.4-5.0) Albumin/Globulin Ratio 0.7 (1.0-1.7) Review of Systems Review of Systems: Pt co anxiety Pt denies n/v/d Assessment and Plan Assessmemt and Plan Problems Medical Problems: (1) Bradycardia Status: Acute (2) Syncope and collapse Status: Acute Assessment Bradycardia Symptomatic syncope with collapse Multiple myeloma CLL stage 0 Plan monitor and storage bin tender Await cardiac input Heme-onc following DVT prophylaxis PT/OT Full code D/c when ok with cardio Comment Review of Relevant I have reviewed the following items astrid (where applicable) has been applied. Medications: Current Medications Medications (Trade) Dose Ordered Sig/Katrin Route PRN Reason Start Time Stop Time Status Last Admin Dose Admin Enoxaparin Sodium (Lovenox 40mg Syringe) 40 mg Q24H SQ 05/12/19 15:00 05/12/19 15:38 Fentanyl (Duragesic 25mcg/ Hr Patch) 1 patch Q72H TD 05/12/19 14:00 05/12/19 15:39 Gabapentin (Neurontin) 100 mg TID PO 05/12/19 14:00 05/13/19 09:12 Montelukast Sodium (Singulair) 10 mg HS PO 05/12/19 21:00 05/12/19 20:22 Potassium Chloride (Klor-Con) 10 meq DAILY PO 05/12/19 15:00 05/13/19 09:12 Acyclovir (Zovirax) 800 mg BID PO 05/12/19 21:00 05/13/19 09:12 Vitamin D (Vitamin D3) 4,000 unit DAILY PO 05/12/19 15:00 05/13/19 09:12 Multivitamins (Thera M Plus) 1 tab DAILY PO 05/12/19 15:00 05/13/19 09:12 Aspirin (Amina Aspirin) 325 mg DAILYWBKFT PO 05/13/19 08:00 05/13/19 09:12 TIO REECE III DO May 13, 2019 11:12
--- NOTE | 2019-05-13 12:34 | PDOC2 ---
NEUROLOGY CONSULT Date of Admission Date of Admission DATE: 05/13/19 TIME: 12:27 Reason for Consult Reason for Consult: Syncope Referring Physician Referring Physician: Dr. Ruelas Source Source: Caregiver (daughter), Chart review, Patient History of Present Illness History of Present Illness The patient is a 78-year-old right-handed female who fainted during chemotherapy. She says that she has reacted this way to chemotherapy before. She was diaphoretic and heart rate was in the 50s. She was unconscious for a few minutes. There was no convulsive activity, tongue biting, incontinence, or postictal confusion. I see that she was here 04/16/18 for syncope after watching her grandsonPayPay football game and a CT of the head at that time was negative. There is no history of stroke, seizure, or head injuries. The patient has had panic attacks. Past Medical History Heme/Onc: Cancer (multiple myeloma) Psych: Anxiety, Depression, Panic Past Surgical History Past Surgical History: Cholecystectomy, Cataract Removal, Family History Family History: CVA Social History Social History , no alcohol or tobacco, retired Current Medications Current Medications Current Medications Ondansetron HCl (Zofran) 4 mg PRN Q8HRS PRN IV NAUSEA/VOMITING; Start 05/12/19 at 11:45; Stop 05/13/19 at 09:28; Status DC Sodium Chloride (Normal Saline Flush) 3 ml QSHIFT PRN IV AFTER MEDS AND BLOOD DRAWS; Start 05/12/19 at 14:00 Ondansetron HCl (Zofran) 4 mg PRN Q4HRS PRN IV NAUSEA/VOMITING; Start 05/12/19 at 14:00 Acetaminophen (Tylenol) 650 mg PRN Q4HRS PRN PO TEMP OVER 100.4F OR MILD PAIN; Start 05/12/19 at 14:00 Docusate Sodium (Colace) 100 mg PRN BID PRN PO CONSTIPATION; Start 05/12/19 at 14:00 Albuterol Sulfate (Ventolin Neb Soln) 2.5 mg PRN Q4HRS PRN NEB SHORTNESS OF BREATH; Start 05/12/19 at 14:00 Guaifenesin (Robitussin) 200 mg PRN Q4HRS PRN PO COUGH; Start 05/12/19 at 14:00 Enoxaparin Sodium (Lovenox 40mg Syringe) 40 mg Q24H SQ Last administered on 05/12/19at 15:38; Start 05/12/19 at 15:00 Aspirin (Ecotrin) 81 mg DAILY PO ; Start 05/12/19 at 15:00; Stop 05/12/19 at 20:00; Status DC Docusate Sodium (Colace) 100 mg DAILY PO ; Start 05/12/19 at 15:00 Fentanyl (Duragesic 25mcg/ Hr Patch) 1 patch Q72H TD Last administered on 05/12/19at 15:39; Start 05/12/19 at 14:00 Gabapentin (Neurontin) 100 mg TID PO Last administered on 05/13/19 09:12; Start 05/12/19 at 14:00 Acetaminophen/ Hydrocodone Bitart (Lortab 5/325) 1 tab PRN Q4HRS PRN PO breakthru pain; Start 05/12/19 at 14:00 Montelukast Sodium (Singulair) 10 mg HS PO Last administered on 05/12/19at 20:22; Start 05/12/19 at 21:00 Potassium Chloride (Klor-Con) 10 meq DAILY PO Last administered on 05/13/19 09:12; Start 05/12/19 at 15:00 Trimethoprim/ Sulfamethoxazole (Bactrim Ds) 1 tab MoTh PO ; Start 05/15/19 at 08:00 Acyclovir (Zovirax) 800 mg BID PO Last administered on 05/13/19 09:12; Start 05/12/19 at 21:00 Vitamin D (Vitamin D3) 4,000 unit DAILY PO Last administered on 05/13/19 09:12; Start 05/12/19 at 15:00 Multivitamins (Thera M Plus) 1 tab DAILY PO Last administered on 05/13/19 09:12; Start 05/12/19 at 15:00 Aspirin (Amina Aspirin) 325 mg DAILYWBKFT PO Last administered on 05/13/19 09:12; Start 05/13/19 at 08:00 Active Scripts Active Reported Lidocaine-Prilocaine Cream (Lidocaine/Prilocaine) 30 Gm Cream..g. 1 Ana TP UD Ondansetron Odt (Ondansetron) 4 Mg Tab.rapdis 1 Tab PO PRN Q6-8HRS Compazine (Prochlorperazine Maleate) 10 Mg Tablet 1 Tab PO PRN Q6HRS PRN 30 Days [daratumumab ] IV WEEKLY Bactrim Ds Tablet (Sulfamethoxazole/Trimethoprim) 1 Each Tablet 1 Each PO WEDNESDAY AND WEDNESDAY Montelukast Sodium Tablet (Montelukast Sodium) 10 Mg Tablet 10 Mg PO HS DURAGESIC 25mcg/hr (Fentanyl) 1 Each Patch.td72 1 Patch TD Q72H Potassium Chloride 10 Meq Tab.sr.24h 10 Meq PO DAILY Multivitamins (Multivitamin) 1 Each Tablet 1 Tab PO DAILY Inlet 5-325 Tablet (Acetaminophen/Hydrocodone Bitart) 1 Each Tablet 1 Tab PO PRN Q4HRS PRN Gabapentin (Gabapentin) 100 Mg Capsule 100 Mg PO TID Colace (Docusate Sodium) 100 Mg Capsule 1 Cap PO DAILY Aspir 81 (Aspirin) 81 Mg Tablet.dr 1 Tab PO DAILY Xanax (Alprazolam) 0.5 Mg Tablet 0.5 Mg PO PRN Q6HRS PRN Acyclovir 800 Mg Tablet 1 Tab PO BID Allergies Allergies: Coded Allergies: aspirin (Verified Allergy, Intermediate, 09/09/14) codeine (Verified Allergy, Intermediate, 09/09/14) ROS Review of System Negative for fever, chills, weight loss, shortness of breath, chest pain, indigestion, hematochezia, melena, and dysuria. Full 14-point review of systems is negative. Physical Exam Physical Examination General: Well-developed, well-nourished white female in no acute distress HEENT: Normocephalic andatraumatic. Temporal arteriespulsatile and nontender. Neck: Supple without bruit, no meningismus Musculoskeletal: Stability:see neurologic. Gait exam:see neurologic. Tone:see neurologic.Strength:see neurologic. Neurological: Mental Status:intact, orientation, memory, attention span/concentration, language, fund of knowledge normal. Cranial Nerves:Pupils equal and reactive to light, extraocular movements areintact, visual shields are full to confrontation. Facial sensation is normal. There is no facial asymmetry. Vestibulo-ocular reflex is intact. Palate elevates and tongue protrudes in midline. All other cranial related problems are negative except as mentioned before.Reflexes:2+ and symmetric with flexor plantar responses. Motor:5/5 strength with normal tone and bulk. Coordination:Finger-nose finger and yfdw-rj-phmi testing are normal. Rapid alternating movements and fine finger movements are intact. Gait:a little unsteady, poor tandem. Sensory:Normal pinprick, vibration, light touch, proprioception. Vitals VITALS Vital Signs Date Time Temp Pulse Resp B/P (MAP) Pulse Ox O2 Delivery O2 Flow Rate FiO2 05/13/19 07:00 97.5 51 16 131/63 (85) 98 Room Air 97.5 Labs Labs Laboratory Tests Test 05/12/19 10:15 05/12/19 11:21 05/12/19 14:50 05/13/19 04:10 White Blood Count 2.9 x10^3/uL (4.0-11.0) 2.6 x10^3/uL (4.0-11.0) Red Blood Count 4.05 x10^6/uL (3.50-5.40) 3.98 x10^6/uL (3.50-5.40) Hemoglobin 12.4 g/dL (12.0-15.5) 12.1 g/dL (12.0-15.5) Hematocrit 37.3 % (36.0-47.0) 36.5 % (36.0-47.0) Mean Corpuscular Volume 92 fL (79-100) 92 fL (79-100) Mean Corpuscular Hemoglobin 31 pg (25-35) 31 pg (25-35) Mean Corpuscular Hemoglobin Concent 33 g/dL (31-37) 33 g/dL (31-37) Red Cell Distribution Width 15.2 % (11.5-14.5) 15.1 % (11.5-14.5) Platelet Count 223 x10^3/uL (140-400) 219 x10^3/uL (140-400) Neutrophils (%) (Auto) 38 % (31-73) 32 % (31-73) Lymphocytes (%) (Auto) 45 % (24-48) 47 % (24-48) Monocytes (%) (Auto) 13 % (0-9) 16 % (0-9) Eosinophils (%) (Auto) 3 % (0-3) 5 % (0-3) Basophils (%) (Auto) 1 % (0-3) 1 % (0-3) Neutrophils # (Auto) 1.1 x10^3/uL (1.8-7.7) 0.8 x10^3/uL (1.8-7.7) Lymphocytes # (Auto) 1.3 x10^3/uL (1.0-4.8) 1.2 x10^3/uL (1.0-4.8) Monocytes # (Auto) 0.4 x10^3/uL (0.0-1.1) 0.4 x10^3/uL (0.0-1.1) Eosinophils # (Auto) 0.1 x10^3/uL (0.0-0.7) 0.1 x10^3/uL (0.0-0.7) Basophils # (Auto) 0.0 x10^3/uL (0.0-0.2) 0.0 x10^3/uL (0.0-0.2) D-Dimer (Pilar) 0.53 ug/mlFEU (0.00-0.50) Sodium Level 140 mmol/L (136-145) 142 mmol/L (136-145) Potassium Level 4.0 mmol/L (3.5-5.1) 4.1 mmol/L (3.5-5.1) Chloride Level 104 mmol/L (98-107) 105 mmol/L (98-107) Carbon Dioxide Level 27 mmol/L (21-32) 30 mmol/L (21-32) Anion Gap 9 (6-14) 7 (6-14) Blood Urea Nitrogen 11 mg/dL (7-20) 10 mg/dL (7-20) Creatinine 1.0 mg/dL (0.6-1.0) 0.9 mg/dL (0.6-1.0) Estimated GFR (Cockcroft-Gault) 64.7 73.1 BUN/Creatinine Ratio 11 (6-20) 11 (6-20) Glucose Level 113 mg/dL (70-99) 102 mg/dL (70-99) Calcium Level 9.5 mg/dL (8.5-10.1) 9.4 mg/dL (8.5-10.1) Magnesium Level 1.9 mg/dL (1.8-2.4) Total Bilirubin 0.4 mg/dL (0.2-1.0) 0.4 mg/dL (0.2-1.0) Aspartate Amino Transf (AST/SGOT) 18 U/L (15-37) 14 U/L (15-37) Alanine Aminotransferase (ALT/SGPT) 25 U/L (14-59) 21 U/L (14-59) Alkaline Phosphatase 143 U/L (46-116) 128 U/L (46-116) Troponin I Quantitative < 0.017 ng/mL (0.000-0.055) < 0.017 ng/mL (0.000-0.055) Total Protein 7.4 g/dL (6.4-8.2) 6.9 g/dL (6.4-8.2) Albumin 3.1 g/dL (3.4-5.0) 2.9 g/dL (3.4-5.0) Albumin/Globulin Ratio 0.7 (1.0-1.7) 0.7 (1.0-1.7) Lactic Acid Level 1.0 mmol/L (0.4-2.0) Segmented Neutrophils % 31 % (35-66) Band Neutrophils % 2 % (0-9) Lymphocytes % 50 % (24-48) Atypical Lymphocytes % (Manual) 2 % (0-0) Monocytes % 11 % (0-10) Eosinophils % 3 % (0-5) Basophils % 1 % (0-3) Platelet Estimate Adequate (ADEQUATE) Poikilocytosis Slight Anisocytosis Slight Ovalocytes Few Helmet Cells Occ Schistocytes Occ Laboratory Tests Test 05/12/19 14:50 05/13/19 04:10 Troponin I Quantitative < 0.017 ng/mL (0.000-0.055) White Blood Count 2.6 x10^3/uL (4.0-11.0) Red Blood Count 3.98 x10^6/uL (3.50-5.40) Hemoglobin 12.1 g/dL (12.0-15.5) Hematocrit 36.5 % (36.0-47.0) Mean Corpuscular Volume 92 fL (79-100) Mean Corpuscular Hemoglobin 31 pg (25-35) Mean Corpuscular Hemoglobin Concent 33 g/dL (31-37) Red Cell Distribution Width 15.1 % (11.5-14.5) Platelet Count 219 x10^3/uL (140-400) Neutrophils (%) (Auto) 32 % (31-73) Lymphocytes (%) (Auto) 47 % (24-48) Monocytes (%) (Auto) 16 % (0-9) Eosinophils (%) (Auto) 5 % (0-3) Basophils (%) (Auto) 1 % (0-3) Neutrophils # (Auto) 0.8 x10^3/uL (1.8-7.7) Lymphocytes # (Auto) 1.2 x10^3/uL (1.0-4.8) Monocytes # (Auto) 0.4 x10^3/uL (0.0-1.1) Eosinophils # (Auto) 0.1 x10^3/uL (0.0-0.7) Basophils # (Auto) 0.0 x10^3/uL (0.0-0.2) Segmented Neutrophils % 31 % (35-66) Band Neutrophils % 2 % (0-9) Lymphocytes % 50 % (24-48) Atypical Lymphocytes % (Manual) 2 % (0-0) Monocytes % 11 % (0-10) Eosinophils % 3 % (0-5) Basophils % 1 % (0-3) Platelet Estimate Adequate (ADEQUATE) Poikilocytosis Slight Anisocytosis Slight Ovalocytes Few Helmet Cells Occ Schistocytes Occ Sodium Level 142 mmol/L (136-145) Potassium Level 4.1 mmol/L (3.5-5.1) Chloride Level 105 mmol/L (98-107) Carbon Dioxide Level 30 mmol/L (21-32) Anion Gap 7 (6-14) Blood Urea Nitrogen 10 mg/dL (7-20) Creatinine 0.9 mg/dL (0.6-1.0) Estimated GFR (Cockcroft-Gault) 73.1 BUN/Creatinine Ratio 11 (6-20) Glucose Level 102 mg/dL (70-99) Calcium Level 9.4 mg/dL (8.5-10.1) Total Bilirubin 0.4 mg/dL (0.2-1.0) Aspartate Amino Transf (AST/SGOT) 14 U/L (15-37) Alanine Aminotransferase (ALT/SGPT) 21 U/L (14-59) Alkaline Phosphatase 128 U/L (46-116) Total Protein 6.9 g/dL (6.4-8.2) Albumin 2.9 g/dL (3.4-5.0) Albumin/Globulin Ratio 0.7 (1.0-1.7) Images Images Ultrasound carotid Doppler 05/12/2019 1:55 PM INDICATION: Syncope COMPARISON: None available TECHNIQUE: Sonographic imaging of the carotid vasculature was performed utilizing grayscale, color Doppler and spectral waveform analysis. FINDINGS: (All velocities are measured cm per second) Right carotid: Minor plaque is noted without significant grayscale narrowing. Peak systolic velocity: Proximal common carotid artery: 60 Middle common carotid artery: 64 Distal common carotid artery: 70 Proximal internal carotid artery: 45 Middle internal carotid artery: 75 Distal internal carotid artery: 105 End-diastolic velocity: 37 External carotid artery: 92 Internal carotid artery/common carotid artery ratio: 0.7-1.6 Vertebral artery: Antegrade flow Left carotid: Minor plaque is noted without significant grayscale narrowing. Peak systolic velocity: Proximal common carotid artery: 97 Middle common carotid artery: 79 Distal common carotid artery: 61 Proximal internal carotid artery: 67 Middle internal carotid artery: 86 Distal internal carotid artery: 97 End-diastolic velocity: 33 External carotid artery: 92 Internal carotid artery/common carotid artery ratio: 0.8-1.2 Vertebral artery: Antegrade flow IMPRESSION: 1. No evidence for flow-limiting carotid stenosis. 2. Antegrade flow is identified in the vertebral arteries. 3. Evaluation of the carotid vasculature and measurements for luminal stenosis was performed utilizing NASCET criteria. CT HEAD WO CONTRAST, 04/16/2018: HISTORY: Syncope There is mild cerebral atrophy. The ventricles are within normal limits in size. There is no shift of midline structures. There is no evidence of acute intracranial hemorrhage or mass effect. IMPRESSION: No acute intracranial abnormality is detected. Assessment/Plan Assessment/Plan Impression: Clearly vasovagal syncope may be related to chemotherapy, no evidence of a neurological issue such as stroke, seizure, or autonomic dysfunction. Recommendations: No need for additional neurological studies. Okay for discharge Follow-up with neurology as needed. Thank you for letting me help with the patient's care. EWA TAYLOR MD May 13, 2019 12:33
[2019-05-13 15:00] VITALS: BP 131/62
[2019-05-13] MEDS ORDERED: HEPARIN PF 500 UNIT/5 ML DISP.SYRIN. IVP ONE (15:45)
--- NOTE | 2019-05-13 18:16 | NUR ---
Discharge Note: JUAN F GOLD Discharge instructions and discharge home medications reviewed with Patient and a copy given. All questions have been answered and understanding verbalized. The following instructions and handouts were given: medications, syncope, bradicardia, follow up with Dr. Glover, Dr. Jernigan for chemo, and her primary physician. Heart monitor to be mailed to her. Discontinued lines and drains: Port heparin locked and removed. Patient discharged to left by wheelchair to family member vehicle.
--- NOTE | 2019-05-13 23:30 | PDOC2 ---
CARDIOLOGY CONSULT NOTE CHEIF COMPLAINT: Anxiety HPI: 78 y.o woman with recent anxiety episodes after new chemo for MM presenting to the hospital with bradycardia. She had missy during the anxiety event. No chest pain, dyspnea, orthopnea or PND. Cardiology asked to evaluate her for missy. No syncope. PMHX: MM - on chemotherapy SOCHX: No alcohol, tob or illicits. FAMHX: NC CURRENT MEDS: Current Medications Medications (Trade) Dose Ordered Sig/Katrin Route PRN Reason Start Time Stop Time Status Last Admin Dose Admin Aspirin (Amina Aspirin) 325 mg DAILYWBKFT PO 05/13/19 08:00 05/13/19 18:23 DC 05/13/19 09:12 Heparin Sodium (Porcine) (Hep Lock Adult) 500 unit 1X ONCE IVP 05/13/19 15:45 05/13/19 15:46 DC 05/13/19 15:54 ALLERGIES: Allergies Coded Allergies Type Severity Reaction Last Updated Verified aspirin Allergy Intermediate 09/09/14 Yes codeine Allergy Intermediate 09/09/14 Yes ROS: Negative unless otherwise noted above in HPI PHYSICAL EXAM: Vital Signs/I&O: Vital Signs Date Time Temp Pulse Resp B/P (MAP) Pulse Ox O2 Delivery O2 Flow Rate FiO2 05/13/19 15:00 98.1 52 16 131/62 (85) 98 Room Air 98.1 I & O 05/12/19 05/12/19 05/13/19 14:59 22:59 06:59 Intake Total 250 ml 400 ml Balance 250 ml 400 ml Physical Exam: GEN.: No apparent distress. Alert and oriented. HEENT: Head is normocephalic, atraumatic NECK: Supple. LUNGS: Clear to auscultation. HEART: RRR, S1, S2 present. Peripheral pulses intact ABDOMEN: Soft, nontender. Positive bowel sounds. EXTREMITIES: Without any cyanosis. NEUROLOGIC: Normal speech, normal tone PSYCHIATRIC: Normal affect, normal mood. SKIN: No ulcerations DIAGNOSTIC TESTING: EKG wnl Tele wnl Normal chronotropic response Lab Laboratory Tests Test 05/13/19 04:10 White Blood Count 2.6 x10^3/uL (4.0-11.0) L Red Blood Count 3.98 x10^6/uL (3.50-5.40) Hemoglobin 12.1 g/dL (12.0-15.5) Hematocrit 36.5 % (36.0-47.0) Mean Corpuscular Volume 92 fL (79-100) Mean Corpuscular Hemoglobin 31 pg (25-35) Mean Corpuscular Hemoglobin Concent 33 g/dL (31-37) Red Cell Distribution Width 15.1 % (11.5-14.5) H Platelet Count 219 x10^3/uL (140-400) Neutrophils (%) (Auto) 32 % (31-73) Lymphocytes (%) (Auto) 47 % (24-48) Monocytes (%) (Auto) 16 % (0-9) H Eosinophils (%) (Auto) 5 % (0-3) H Basophils (%) (Auto) 1 % (0-3) Neutrophils # (Auto) 0.8 x10^3/uL (1.8-7.7) L Lymphocytes # (Auto) 1.2 x10^3/uL (1.0-4.8) Monocytes # (Auto) 0.4 x10^3/uL (0.0-1.1) Eosinophils # (Auto) 0.1 x10^3/uL (0.0-0.7) Basophils # (Auto) 0.0 x10^3/uL (0.0-0.2) Segmented Neutrophils % 31 % (35-66) L Band Neutrophils % 2 % (0-9) Lymphocytes % 50 % (24-48) H Atypical Lymphocytes % (Manual) 2 % (0-0) H Monocytes % 11 % (0-10) H Eosinophils % 3 % (0-5) Basophils % 1 % (0-3) Platelet Estimate Adequate (ADEQUATE) Poikilocytosis Slight Anisocytosis Slight Ovalocytes Few Helmet Cells Occ Schistocytes Occ Sodium Level 142 mmol/L (136-145) Potassium Level 4.1 mmol/L (3.5-5.1) Chloride Level 105 mmol/L (98-107) Carbon Dioxide Level 30 mmol/L (21-32) Anion Gap 7 (6-14) Blood Urea Nitrogen 10 mg/dL (7-20) Creatinine 0.9 mg/dL (0.6-1.0) Estimated GFR (Cockcroft-Gault) 73.1 BUN/Creatinine Ratio 11 (6-20) Glucose Level 102 mg/dL (70-99) H Calcium Level 9.4 mg/dL (8.5-10.1) Total Bilirubin 0.4 mg/dL (0.2-1.0) Aspartate Amino Transf (AST/SGOT) 14 U/L (15-37) L Alkaline Phosphatase 128 U/L (46-116) H Total Protein 6.9 g/dL (6.4-8.2) Albumin 2.9 g/dL (3.4-5.0) L Albumin/Globulin Ratio 0.7 (1.0-1.7) L Laboratory Tests 05/13/19 04:10 ASSESSMENT: 1. Asymptomatic sinus bradycardia PLAN: 1. She has a normal chronotropic response. SHe had missy during a vagal episode of anxiety. 2. No further CV testing in house, will plan for outpt event monitor and echo. Thanks. Romero for DC. Pls call with questions. FLACA SANDOVAL MD May 13, 2019 23:30
[2019-05-15] MEDS ORDERED: SMZ/TMP 800/160MG TABLET. PO SCH (08:00)
--- NOTE | 2019-05-15 11:24 | CARD ---
MR#: [id number] Date of Study: 05/12/2019 Ordering Physician: DEVIKA CALHOUN, Referring Physician: DEVIKA CALHOUN, Tech: Gloria Desai APPROVED REPORT EXAM: Two-dimensional and M-mode echocardiogram with Doppler and color Doppler. Other Information Quality : AverageHR: 49bpm INDICATION Syncope 2D DIMENSIONS RVDd2.3 (2.9-3.5cm)Left Atrium(2D)3.0 (1.6-4.0cm) IVSd1.2 (0.7-1.1cm)Aortic Root(2D)2.8 (2.0-3.7cm) LVDd4.0 (3.9-5.9cm)LVOT Diameter2.0 (1.8-2.4cm) PWd0.8 (0.7-1.1cm)LVDs2.3 (2.5-4.0cm) FS (%) 43.5 %SV53.7 ml LVEF(%)75.2 (>50%) Aortic Valve AoV Peak Damaso.167.9cm/sAoV VTI32.1cm AO Peak GR.11.3mmHgLVOT VTI 22.29cm AO Mean GR.5mmHg Mitral Valve MV E Xadalqso34.5cm/sMV DECEL [id number] MV A Bhvjaloe559.3cm/sE/A Ratio0.7 TDI Lateral E' P. V7.34cm/sMedial E' P. V7.47cm/s E/Lateral E'9.5E/Medial E'9.3 Tricuspid Valve TR P. Aeiwfyoh215dq/sRAP [id number] TR Peak Gr.52qhIwBHWZ67htOv Pulmonary Vein S1 Kfdvxzyu93.4cm/sS2 Znepyeoc62.25cm/s D2 Kgrwpjnc73.2cm/sPVa [id number] LEFT VENTRICLE The left ventricle is normal size. There is borderline to mild concentric left ventricular hypertroph y. The left ventricular systolic function is normal. The ejection fraction is 60-65%. There is normal LV segmental wall motion. Transmitral Doppler flow pattern is Grade I-abnormal relaxation pattern. RIGHT VENTRICLE The right ventricle is normal size. There is normal right ventricular wall thickness. The right ventr icular systolic function is normal. ATRIA The left atrium size is normal. The right atrium size is normal. The interatrial septum is intact wit h no evidence for an atrial septal defect or patent foramen ovale as noted on 2-D or Doppler imaging. AORTIC VALVE The aortic valve is normal in structure and function. Doppler and Color Flow revealed no significant aortic regurgitation. There is no significant aortic valvular stenosis. MITRAL VALVE The mitral valve is normal in structure and function. There is no evidence of mitral valve prolapse. There is no mitral valve stenosis. Doppler and Color-flow revealed trace mitral regurgitation. TRICUSPID VALVE The tricuspid valve is normal in structure and function. Doppler and Color Flow revealed trace tricus pid regurgitation with an estimated PAP of 34 mmHg. There is no tricuspid valve stenosis. PULMONIC VALVE The pulmonic valve is not well visualized. Doppler and Color Flow revealed trace to mild pulmonic hannah vular regurgitation. GREAT VESSELS The aortic root is normal in size. The IVC is dilated. PERICARDIAL EFFUSION There is no evidence of significant pericardial effusion. Critical Notification Critical Value: No <Conclusion> The left ventricular systolic function is normal. The ejection fraction is 60-65%. There is normal LV segmental wall motion. Transmitral Doppler flow pattern is Grade I-abnormal relaxation pattern. Trace mitral regurgitation. Doppler and Color Flow revealed trace tricuspid regurgitation with an estimated PAP of 34 mmHg. Signed by : Nirav Ware, Electronically Approved : 05/12/2019 17:27:12
== END 2019-05-13 16:30 | disposition home or self-care (01) | DRG 312 ==
LOC: ER 09:52 → 2 NORTH 11:39
PROVIDERS: ADMIT Family Medicine; ATTEND Family Medicine
DX: R55 Syncope and collapse (principal); C90.00 Multiple myeloma not having achieved remission; C91.10 Chronic lymphocytic leukemia of B-cell type not having achieved remission; R00.1 Bradycardia, unspecified; G89.29 Other chronic pain; F41.0 Panic disorder [episodic paroxysmal anxiety]; F32.9 Major depressive disorder, single episode, unspecified; Z90.49 Acquired absence of other specified parts of digestive tract; Z88.6 Allergy status to analgesic agent; Z88.5 Allergy status to narcotic agent; Z82.3 Family history of stroke; Z82.49 Family history of ischemic heart disease and other diseases of the circulatory system
CPT/HCPCS: 36415; 71045; 80053; 83605; 83735; 84484; 85007; 85025; 85379; 87040; 93005; 93306; 93880; J1650; 92610; 99285-25; G0378

== ENCOUNTER 2019-06-27 16:46 | Emergency (ER) | payer MEDICARE ==
[~2019-06-27] VITALS: Ht 157.5 cm; Wt 80.7 kg
[~2019-06-27 16:46] MED LIST changes: +LIDO30CR TP; +ONDA4TAB12 PO
[2019-06-27] MEDS ORDERED: oxyCODONE/APAP 5/325 1 TAB TABLET PO ONE (17:00)
[2019-06-27] MEDS ORDERED: IV NORMAL SALINE 500ML BAG 500 ML IV ONE (17:00)
--- NOTE | 2019-06-27 17:09 | PHYS DOC ---
Past Medical History Past Medical History: Anxiety, Cancer Additional Past Medical Histor: chronic back pain, bone CA, multiple myloma (JOSE SANCHEZ MD) Past Surgical History: Appendectomy, , Other Additional Past Surgical Histo: breast biopsy, rt chest port (JOSE SANCHEZ MD) Alcohol Use: None Drug Use: None (JOSE SANCHEZ MD) Adult General Chief Complaint Chief Complaint: MULTIPLE COMPLAINTS HPI HPI Patient is a 78-year-old female with a past history of multiple myeloma who presents to the emergency department for evaluation. She states that she had some nausea and vomiting which began today, but she is not having any significant abdominal pain. She has not had any diarrhea, or significant constipation. She has not had any bloody emesis or bloody stools. Her last chemotherapy for her myeloma was about a week ago. She also is complaining of left-sided rib pain, which she states began hurting her 3 days ago, when she was reaching for something and felt some pulling and tightness in her left ribs. She denies any fevers or chills. She reports a mild frontal headache, but states that she has had similar types of headaches in the past, and this is not a new headache for her. She states that this headache is not "worst headache of her life". She denies any vision changes, numbness, or weakness. She has a history of anxiety, and states that she is feeling somewhat anxious at this time. There are no alleviating or exacerbating factors to her symptoms otherwise. (JOSE SANCHEZ MD) Review of Systems Review of Systems Constitutional: Denies fever or chills [] Eyes: Denies change in visual acuity, redness, or eye pain [] HENT: Denies nasal congestion or sore throat [] Respiratory: Denies cough or shortness of breath [] Cardiovascular: The patient denies any shortness of breath, chest pain, palpitations, or orthopnea [] GI: Denies abdominal pain, bloody emesis, bloody stools or diarrhea [] : Denies dysuria or hematuria [] Musculoskeletal: Denies back pain or joint pain [] Integument: Denies rash or skin lesions [] Neurologic: Denies focal weakness or sensory changes [] Endocrine: Denies polyuria or polydipsia [] All other systems were reviewed and found to be within normal limits, except as documented in this note. (JOSE SANCHEZ MD) Current Medications Current Medications Current Medications Medications (Trade) Dose Ordered Sig/Katrin Start Time Stop Time Status Last Admin Dose Admin Lorazepam (Ativan Inj) 1 mg 1X ONCE 06/27/19 17:00 06/27/19 17:05 DC 06/27/19 17:16 1 MG Oxycodone/ Acetaminophen (Percocet 5/325) 1 tab 1X ONCE 06/27/19 17:00 06/27/19 17:05 DC 06/27/19 17:16 1 TAB Sodium Chloride 500 ml @ 500 mls/hr 1X ONCE 06/27/19 17:00 06/27/19 17:59 DC 06/27/19 17:19 500 MLS/HR (JACEK DAVIS MD) Allergies Allergies Allergies Coded Allergies Type Severity Reaction Last Updated Verified aspirin Allergy Intermediate 09/09/14 Yes codeine Allergy Intermediate 09/09/14 Yes (JACEK DAVIS MD) Physical Exam Physical Exam PHYSICAL EXAM: CONSTITUTIONAL: Well developed, well nourished HEAD: normocephalic, atraumatic EENT: PERRL, EOMI. Conjunctivae normal color, sclerae non-icteric; moist mucous membranes. NECK: Supple, non-tender; no meningismus. LUNGS: Lungs CTA, breathing even and unlabored. Normal air movement. HEART: Regular rate and rhythm, no murmur CHEST: No deformity; there is some left-sided tenderness to palpation to the left lower costal margin, the remainder the chest is nontender. There is no crepitus. ABDOMEN: The abdomen is soft, and non-tender, no masses or bruits. EXTREM: Normal ROM; no deformity, no calf tenderness. Normal pulses palpable in all extremities. There is no pedal edema. SKIN: No rash; no diaphoresis NEURO: Alert; normal speech and cognition; CN's grossly intact; strength grossly intact without focal deficit. BACK: No CVA TTP. PSYCHIATRIC: The patient is moderately anxious. (JOSE SANCHEZ MD) Current Patient Data Vital Signs Vital Signs Date Time Temp Pulse Resp B/P (MAP) Pulse Ox O2 Delivery O2 Flow Rate FiO2 06/27/19 17:30 172/76 (108) 06/27/19 17:16 18 94 Room Air 06/27/19 17:00 80 06/27/19 16:50 98.1 98.1 (JACEK DAVIS MD) Lab Values Laboratory Tests Test 06/27/19 17:00 06/27/19 17:12 06/27/19 18:00 Sodium Level 136 mmol/L (136-145) Potassium Level 3.3 mmol/L (3.5-5.1) L Chloride Level 100 mmol/L (98-107) Carbon Dioxide Level 30 mmol/L (21-32) Anion Gap 6 (6-14) Blood Urea Nitrogen 9 mg/dL (7-20) Creatinine 1.2 mg/dL (0.6-1.0) H Estimated GFR (Cockcroft-Gault) 52.4 BUN/Creatinine Ratio 8 (6-20) Glucose Level 121 mg/dL (70-99) H Calcium Level 9.6 mg/dL (8.5-10.1) Total Bilirubin 0.5 mg/dL (0.2-1.0) Aspartate Amino Transferase (AST) 16 U/L (15-37) Alanine Aminotransferase (ALT) 14 U/L (14-59) Alkaline Phosphatase 82 U/L (46-116) Total Protein 7.8 g/dL (6.4-8.2) Albumin 3.4 g/dL (3.4-5.0) Albumin/Globulin Ratio 0.8 (1.0-1.7) L Lipase 35 U/L (73-393) L White Blood Count 6.2 x10^3/uL (4.0-11.0) Red Blood Count 4.05 x10^6/uL (3.50-5.40) Hemoglobin 12.4 g/dL (12.0-15.5) Hematocrit 37.6 % (36.0-47.0) Mean Corpuscular Volume 93 fL (79-100) Mean Corpuscular Hemoglobin 31 pg (25-35) Mean Corpuscular Hemoglobin Concent 33 g/dL (31-37) Red Cell Distribution Width 16.7 % (11.5-14.5) H Platelet Count 250 x10^3/uL (140-400) Neutrophils (%) (Auto) 49 % (31-73) Lymphocytes (%) (Auto) 43 % (24-48) Monocytes (%) (Auto) 6 % (0-9) Eosinophils (%) (Auto) 1 % (0-3) Basophils (%) (Auto) 1 % (0-3) Neutrophils # (Auto) 3.0 x10^3/uL (1.8-7.7) Lymphocytes # (Auto) 2.6 x10^3/uL (1.0-4.8) Monocytes # (Auto) 0.4 x10^3/uL (0.0-1.1) Eosinophils # (Auto) 0.1 x10^3/uL (0.0-0.7) Basophils # (Auto) 0.1 x10^3/uL (0.0-0.2) Segmented Neutrophils % 58 % (35-66) Lymphocytes % 39 % (24-48) Monocytes % 3 % (0-10) Platelet Estimate Adequate (ADEQUATE) Urine Collection Type Void Urine Color Yellow Urine Clarity Clear Urine pH 6.5 Urine Specific [place] 1.020 Urine Protein Negative mg/dL (NEG-TRACE) Urine Glucose (UA) Negative mg/dL (NEG) Urine Ketones (Stick) Trace mg/dL (NEG) Urine Blood Negative (NEG) Urine Nitrite Negative (NEG) Urine Bilirubin Negative (NEG) Urine Urobilinogen Dipstick 0.2 mg/dL (0.2 mg/dL) Urine Leukocyte Esterase Trace (NEG) Urine RBC 0 /HPF (0-2) Urine WBC Rare /HPF (0-4) Urine Squamous Epithelial Cells Few /LPF Urine Bacteria Few /HPF (0-FEW) Urine Mucus Mod /LPF Laboratory Tests 06/27/19 17:12 Laboratory Tests 06/27/19 17:00 (JACEK DAVIS MD) Lab Values Laboratory Tests Test 06/27/19 17:00 06/27/19 17:12 Sodium Level 136 mmol/L (136-145) Potassium Level 3.3 mmol/L (3.5-5.1) L Chloride Level 100 mmol/L (98-107) Carbon Dioxide Level 30 mmol/L (21-32) Anion Gap 6 (6-14) Blood Urea Nitrogen 9 mg/dL (7-20) Creatinine 1.2 mg/dL (0.6-1.0) H Estimated GFR (Cockcroft-Gault) 52.4 BUN/Creatinine Ratio 8 (6-20) Glucose Level 121 mg/dL (70-99) H Calcium Level 9.6 mg/dL (8.5-10.1) Total Bilirubin 0.5 mg/dL (0.2-1.0) Aspartate Amino Transferase (AST) 16 U/L (15-37) Alanine Aminotransferase (ALT) 14 U/L (14-59) Alkaline Phosphatase 82 U/L (46-116) Total Protein 7.8 g/dL (6.4-8.2) Albumin 3.4 g/dL (3.4-5.0) Albumin/Globulin Ratio 0.8 (1.0-1.7) L Lipase 35 U/L (73-393) L White Blood Count 6.2 x10^3/uL (4.0-11.0) Red Blood Count 4.05 x10^6/uL (3.50-5.40) Hemoglobin 12.4 g/dL (12.0-15.5) Hematocrit 37.6 % (36.0-47.0) Mean Corpuscular Volume 93 fL (79-100) Mean Corpuscular Hemoglobin 31 pg (25-35) Mean Corpuscular Hemoglobin Concent 33 g/dL (31-37) Red Cell Distribution Width 16.7 % (11.5-14.5) H Platelet Count 250 x10^3/uL (140-400) Neutrophils (%) (Auto) 49 % (31-73) Lymphocytes (%) (Auto) 43 % (24-48) Monocytes (%) (Auto) 6 % (0-9) Eosinophils (%) (Auto) 1 % (0-3) Basophils (%) (Auto) 1 % (0-3) Neutrophils # (Auto) 3.0 x10^3/uL (1.8-7.7) Lymphocytes # (Auto) 2.6 x10^3/uL (1.0-4.8) Monocytes # (Auto) 0.4 x10^3/uL (0.0-1.1) Eosinophils # (Auto) 0.1 x10^3/uL (0.0-0.7) Basophils # (Auto) 0.1 x10^3/uL (0.0-0.2) Platelet Estimate Pending Laboratory Tests 06/27/19 17:12 Laboratory Tests 06/27/19 17:00 (JOSE SANCHEZ MD) EKG EKG []Normal sinus rhythm at a rate of 65 beats for minute, left axis deviation, normal intervals, there are no acute ischemic ST/T changes. (JOSE SANCHEZ MD) Radiology/Procedures Radiology/Procedures [] (JOSE SANCHEZ MD) Radiology/Procedures [facility] [address] [place] [address] IMAGING REPORT Signed PATIENT: JUAN F GOLD JACCOUNT: [id number] : 1940 LOCATION: ER AGE: 78 SEX: F EXAM STATUS: REG ER ORD. PHYSICIAN: JOSE SANCHEZ MD REASON: Low abdominal pain, N/V PROCEDURE: ACUTE ABDOMEN SERIES Study: 1. CR RIBS LEFT 2. CR ACUTE ABDOMEN SERIES Indication: Mechanical fall. Left-sided rib pain. Lower abdominal pain. Comparison: Most recent chest radiograph from 05/12/2019 Findings: Rib series: No displaced rib fracture is identified. No pneumothorax seen on the left. Right-sided central catheter with the tip projecting in the expected location of the superior vena cava. No layering pleural effusion. Basilar calcifications at the arch. Abdominal series: Cholecystectomy clips. The cardiomediastinal silhouette is prominent in size. Streaky haziness at the right infrahilar region most suggestive of volume loss. This also could be in part artifactual from patient rotation. Opacity along the pleural margin at the right lung apex was present previously. Nonobstructive bowel gas pattern. No free air is identified. L1 compression fracture which was described on the 2018 MRI. Lumbar levocurvature centered at L2. Scattered degenerative changes. Impression: Rib series: 1. No displaced rib fracture is well seen in the setting of osteopenia. Abdominal series: 1. Unchanged right chest wall Port-A-Cath positioning. 2. Similar prominence of the cardiomediastinal silhouette. No newly seen lung abnormality with haziness at the right infrahilar region felt either related to atelectasis or in part artifactual from patient rotation. 3. Nonspecific bowel gas pattern without obstructive features. 4. L1 compression fracture which was described on the 2018 MRI compatible with chronicity. Electronically signed by: SHAQ CARLSON MD (06/27/2019 6:40 PM) [facility] DICTATED and SIGNED BY: SHAQ CARLSON MD DATE: 06/27/191839 (JACEK DAVIS MD) Course & Med Decision Making Course & Med Decision Making Pertinent Labs and Imaging studies reviewed. (See chart for details) []6:00 PM: Patient's condition remains stable. She was reassessed at this time and is feeling significantly better. I have reviewed her x-rays and did not find any acute pathology but x-ray reports are pending. Her urinalysis is also pending at this time. I do not see any evidence of a bowel obstruction. I do have a high suspicion that anxiety was a primary factor in the patient's symptoms. She is feeling back to her baseline and feels well enough to go home, pending final results. Care will be turned over to Dr. Davis at shift change, pending labs, imaging reports and final disposition. Report given. (JOSE SANCHEZ MD) Dragon Disclaimer Dragon Disclaimer This electronic medical record was generated, in whole or in part, using a voice recognition dictation system. (JOSE SANCHEZ MD) Departure Departure Impression: Primary Impression: Nausea & vomiting Additional Impressions: Anxiety Multiple myeloma and immunoproliferative neoplasms Disposition: 01 HOME, SELF-CARE Condition: STABLE Referrals: ANTOINE JOHNSON MD (PCP) Patient Instructions: Chest Wall Pain Additional Instructions: Recommend follow up with PCP 3 - 5 days Return to the ER with worsening symptoms, intractable pain, fever, altered mental status Tylenol/Motrin as needed for pain Lidoderm patch for pain 12 hours on, 12 hours off Problem Qualifiers Primary Impression: Nausea & vomiting Vomiting type: unspecified Vomiting Intractability: unspecified Qualified Codes: R11.2 - Nausea with vomiting, unspecified JOSE SANCHEZ MD Jun 27, 2019 17:09 JACEK DAVIS MD Jun 27, 2019 19:01
[2019-06-27 17:22] LABS: BASO # 0.1 x10^3/uL (0.0-0.2); BASO % 1 % (0-3); EOS # 0.1 x10^3/uL (0.0-0.7); EOS % 1 % (0-3); HEMATOCRIT 37.6 % (36.0-47.0); HEMOGLOBIN 12.4 g/dL (12.0-15.5); LYMPH # 2.6 x10^3/uL (1.0-4.8); LYMPH % 43 % (24-48); MEAN CORPUSCULAR HEMOGLOBIN 31 pg (25-35); MEAN CORPUSCULAR HGB CONC 33 g/dL (31-37); MEAN CORPUSCULAR VOLUME 93 fL (79-100); MONO # 0.4 x10^3/uL (0.0-1.1); MONO % 6 % (0-9); NEUT % 49 % (31-73); PLATELET COUNT 250 x10^3/uL (140-400); RED BLOOD COUNT 4.05 x10^6/uL (3.50-5.40); RED CELL DISTRIBUTION WIDTH 16.7 % (11.5-14.5); WHITE BLOOD COUNT 6.2 x10^3/uL (4.0-11.0)
[2019-06-27 17:35] LABS: CALCIUM 9.6 mg/dL (8.5-10.1); CREATININE 1.2 mg/dL (0.6-1.0); GFR 52.4; POTASSIUM 3.3 mmol/L (3.5-5.1)
[2019-06-27 17:41] LABS: ALBUMIN 3.4 g/dL (3.4-5.0); ALBUMIN/GLOBULIN RATIO 0.8 (1.0-1.7); TOTAL BILIRUBIN 0.5 mg/dL (0.2-1.0); TOTAL PROTEIN 7.8 g/dL (6.4-8.2)
[2019-06-27 18:05] LABS: % LYMPHS 39 % (24-48); % MONOS 3 % (0-10); % SEGS 58 % (35-66)
[2019-06-27 18:07] LABS: BILIRUBIN,URINE NEGATIVE (NEG); CLARITY,URINE CLEAR; COLOR,URINE YELLOW; NITRITE,URINE NEGATIVE (NEG); PH,URINE 6.5; PROTEIN,URINE NEGATIVE (NEG-TRACE); UROBILINOGEN,URINE 0.2 mg/dL (0.2 mg/dL)
[2019-06-27 18:07] LABS: PLT ESTIMATE ADEQUATE (ADEQUATE)
[2019-06-27 18:18] LABS: BACTERIA,URINE FEW /HPF (0-FEW); RBC,URINE 0 /HPF (0-2); SQUAMOUS EPITHELIAL CELL,UR FEW /LPF; WBC,URINE RARE /HPF (0-4)
--- NOTE | 2019-06-27 18:43 | RAD ---
Study: 1. CR RIBS LEFT 2. CR ACUTE ABDOMEN SERIES Indication: Mechanical fall. Left-sided rib pain. Lower abdominal pain. Comparison: Most recent chest radiograph from 05/12/2019 Findings: Rib series: No displaced rib fracture is identified. No pneumothorax seen on the left. Right-sided central catheter with the tip projecting in the expected location of the superior vena cava. No layering pleural effusion. Basilar calcifications at the arch. Abdominal series: Cholecystectomy clips. The cardiomediastinal silhouette is prominent in size. Streaky haziness at the right infrahilar region most suggestive of volume loss. This also could be in part artifactual from patient rotation. Opacity along the pleural margin at the right lung apex was present previously. Nonobstructive bowel gas pattern. No free air is identified. L1 compression fracture which was described on the 2018 MRI. Lumbar levocurvature centered at L2. Scattered degenerative changes. Impression: Rib series: 1. No displaced rib fracture is well seen in the setting of osteopenia. Abdominal series: 1. Unchanged right chest wall Port-A-Cath positioning. 2. Similar prominence of the cardiomediastinal silhouette. No newly seen lung abnormality with haziness at the right infrahilar region felt either related to atelectasis or in part artifactual from patient rotation. 3. Nonspecific bowel gas pattern without obstructive features. 4. L1 compression fracture which was described on the 2018 MRI compatible with chronicity. Electronically signed by: SHAQ CARLSON MD (06/27/2019 6:40 PM) [facility]
[2019-06-27] MEDS ORDERED: HEPARIN PF 500 UNIT/5 ML DISP.SYRIN. IVP STA (19:07)
[2019-06-27 19:10] VITALS: BP 154/67
[2019-06-27] MEDS ORDERED: POTASSIUM CHLORIDE 20 MEQ TABLET.ER. PO ONE (19:15)
--- NOTE | 2019-06-28 06:27 | EKG ---
[facility] [address] [place] [address] Test Date: 2019-06-27 Test Time: 17:20:25 Pat Name: JUAN F GOLD Department: Room: Gender: F Tactical Debriefer: : 1940 Requested By: JOSE SANCHEZ Order Number: [id number] Reading MD: Measurements Intervals [place] Rate: 65 P: 44 MT: 160 QRS: -13 QRSD: 82 T: 22 QT: 404 QTc: 425 Interpretive Statements SINUS RHYTHM LEFTWARD AXIS NO SPECIFIC ECG ABNORMALITIES RI6.01 No previous ECG available for comparison
== END 2019-06-27 19:30 | disposition home or self-care (01) ==
LOC: ER 16:46
DX: R11.2 Nausea with vomiting, unspecified (principal); R07.81 Pleurodynia; R51 Headache; F41.9 Anxiety disorder, unspecified; C90.00 Multiple myeloma not having achieved remission; Z86.03 Personal history of neoplasm of uncertain behavior; G89.29 Other chronic pain; Z90.89 Acquired absence of other organs; Z98.890 Other specified postprocedural states; Z88.6 Allergy status to analgesic agent
CPT/HCPCS: 36415; 71100; 74022; 80053; 81001; 83690; 85007; 85025; 87086; 93005; 96361; 96374; 96375; 99285; J2060; J7040

== ENCOUNTER → 2019-08-10 | Outpatient (CLI) | payer MEDICARE ==
--- NOTE | 2019-08-10 17:09 | RAD ---
Examination: BONE SURVEY METASTATIC COMPL History: Multiple myeloma, left rib pain, bone metastases Comparison/Correlation: 04/15/2018 metastatic bone survey, left rib series 06/27/2019, 01/11/2019 left hip 2 view with pelvis x-ray Findings: A total of 20 images were acquired. This includes images of the skull, spine, upper shortness, lower extremities, PA view of the chest, and frontal image of the pelvis. Right internal jugular infusion port catheter again seen. Heart size is normal. Right apical mass is again seen. Lung shields are otherwise unremarkable. Right lower lateral ribs are not optimally included on this exam. Ribs are grossly unremarkable otherwise. Development of numerous lytic lesions involving the skull are evident compared to 04/15/2018. Moderate C6-7 disc space narrowing and spurring again seen. Right upper quadrant surgical clips are present. Dextroconvexity lower thoracic spine and levoconvex in the upper lumbar spine noted. L1 significant compression fracture deformity is again seen. Right upper quadrant surgical clips noted. Multiple lucencies involving the bony pelvis apparently at the iliac crest level noted. No definite lytic involvement involving the upper or lower extremities. Impression: Interval development of numerous lytic lesions involving the skull. Lytic lesions involving the superior aspect of the iliac bones also appear to be present. Consider further imaging assessment with CT bony pelvis cortical for confirmation. L1 compression fracture deformity again seen without change. Electronically signed by: Edwin Rod MD (08/10/2019 5:06 PM) [facility]
== END | disposition home or self-care (01) ==
LOC: RAD 11:33
PROVIDERS: ATTEND Internal Medicine Hematology & Oncology
DX: C90.00 Multiple myeloma not having achieved remission (principal); M48.56XD Collapsed vertebra, not elsewhere classified, lumbar region, subsequent encounter for fracture with routine healing
CPT/HCPCS: 77075

== ENCOUNTER → 2019-10-30 | Outpatient (CLI) | payer MEDICARE ==
[2019-09-18 17:24] VITALS: BP 154/67
[~2019-10-30] MED LIST changes: +CIPR2.5D EACHEYE; +CLIN150C14 PO; +PRED50TA PO
--- NOTE | 2019-10-30 10:08 | CARD ---
MR#: [id number] Date of Study: 10/30/2019 Ordering Physician: JERMAN MATA, Referring Physician: JERMAN MATA, Tech: Le Stanley RDCS APPROVED REPORT EXAM: LIMITED Two-dimensional echocardiogram Other Information Quality : Good INDICATION LV Function:Systolic Pre-Chemotherapy 2D DIMENSIONS RVDd3.0 (2.9-3.5cm)Left Atrium(2D)3.0 (1.6-4.0cm) IVSd1.0 (0.7-1.1cm)Aortic Root(2D)2.6 (2.0-3.7cm) LVDd4.2 (3.9-5.9cm)PWd1.0 (0.7-1.1cm) LVDs2.3 (2.5-4.0cm)FS (%) 30.0 % SV59.8 mlLVEF(%)60.0 (>50%) LEFT VENTRICLE The left ventricle is normal size. There is normal left ventricular wall thickness. The left ventricu lar systolic function is normal and the ejection fraction is within normal range. The Ejection Fracti on is 55-60%. There is normal LV segmental wall motion. RIGHT VENTRICLE The right ventricle is normal size. ATRIA The left atrium size is normal. The right atrium size is normal. AORTIC VALVE The aortic valve is tri-cuspid. MITRAL VALVE The mitral valve is normal in structure. There is no evidence of mitral valve prolapse. TRICUSPID VALVE The tricuspid valve is normal in structure. PULMONIC VALVE The pulmonic valve is not interrogated. GREAT VESSELS The aortic root is normal in size. PERICARDIAL EFFUSION There is a small pericardial effusion. Critical Notification Critical Value: No <Conclusion> The left ventricular systolic function is normal and the ejection fraction is within normal range. Th e Ejection Fraction is 55-60%. There is normal LV segmental wall motion. There is a small pericardial effusion. Signed by : Dawson Glover, Electronically Approved : 10/30/2019 10:07:38
== END ==
LOC: ECHO 08:57
PROVIDERS: ATTEND Internal Medicine Hematology & Oncology
DX: C90.00 Multiple myeloma not having achieved remission (principal); I31.3 Pericardial effusion (noninflammatory)
CPT/HCPCS: 93308

== ENCOUNTER 2021-04-05 18:24 | Emergency (ER) | payer MEDICARE ==
[~2021-04-05] VITALS: Ht 157.5 cm; Wt 72.0 kg
[~2021-04-05 18:24] MED LIST changes: -ACYC800T PO; +ACYC800T88 PO; -CIPR2.5D EACHEYE; +CIPR2.5D2 EACHEYE; -CLIN150C14 PO; +CLIN150C16 PO; -LIDO30CR TP; +LIDO30CR2 TP; +MULT-445 PO; -MULT1TAB52 PO
[2021-04-05 18:43] VITALS: BP 168/114
--- NOTE | 2021-04-05 19:16 | PHYS DOC ---
Past Medical History Past Medical History: Anxiety, Cancer Additional Past Medical Histor: chronic back pain, bone CA, multiple myloma (DELIO GIBSON) Past Surgical History: Appendectomy, , Other Additional Past Surgical Histo: breast biopsy, rt chest port (DELIO GIBSON) Smoking Status: Never Smoker Alcohol Use: None Drug Use: None (DELIO GIBSON) General Adult EDM: Chief Complaint: MECHANICAL FALL HPI: HPI: Patient is a 80 year old female who presents status post mechanical fall. Patient [place] lot when she "tripped over her toes," fell to her knees and then forward onto her chest. Patient states that her pain is currently 8/10 and is aching in nature. She reports that her pain is greater in her ribs than her knees. She denies head trauma and loss of consciousness, as well as any abrasion, laceration or blood loss. Patient states she did not ingest any alcohol while at the [employer]. She denies having any falls prior to this one. Patient denies headache, dizziness, blurred vision, spots in her vision, blind spots, abdominal pain, N/V/D, dysuria and hematuria. (DELIO GIBSON) Review of Systems: Review of Systems: Constitutional: Denies fever or chills. Eyes: See HPI Respiratory: Reports HORVATH. Denies cough. Cardiovascular: Denies chest pain or edema. GI: See HPI : See HPI Musculoskeletal: See HPI Neurologic: See HPI (DELIO GIBSON) Heart Score: C/O Chest Pain: N/A (DELIO GIBSON) Allergies: Allergies: Allergies Coded Allergies Type Severity Reaction Last Updated Verified aspirin Allergy Intermediate 09/09/14 Yes codeine Allergy Intermediate 09/09/14 Yes (DELIO GIBSON) Physical Exam: PE: Constitutional: Well developed, well nourished, non-toxic appearance. HENT: Normocephalic, atraumatic, bilateral external ears normal, nose normal. Eyes: PERRLA, EOMI, conjunctiva normal, no discharge. Neck: Normal range of motion, no tenderness, supple, no stridor. Cardiovascular:Heart rate regular rhythm. 2/6 midsystolic murmur without radiation. Lungs & Thorax: Scar from port on superior anterior chest wall noted. Bilateral breath sounds clear to auscultation Abdomen: Bowel sounds normal, soft, no tenderness, no masses, no pulsatile masses. Skin: Warm, dry, no erythema, no rash. Back: No tenderness, no CVA tenderness. Extremities: Slight bruising and tenderness of her bilateral knees. Strength 5/5 in extremities x4. No cyanosis, no clubbing, ROM intact, no edema. Neurologic: Alert and oriented X 3, normal motor function, normal sensory function, no focal deficits noted. (DELIO GIBSON) Current Patient Data: Vital Signs: Vital Signs Date Time Temp Pulse Resp B/P (MAP) Pulse Ox O2 Delivery O2 Flow Rate FiO2 04/05/21 18:43 80 12 168/114 (96) 98 Room Air (DELIO GIBSON) EKG: EKG: [] (DELIO GIBSON) Radiology/Procedures: Radiology/Procedures: PROCEDURE: CT HEAD AND CERVICAL SPINE WO Exam: CT head and cervical spine INDICATION: Pain, status post fall TECHNIQUE: Sequential axial images through the head and cervical spine were obtained without the administration of IV contrast. Exposure: One or more of the following in the visualized dose reduction techniques were utilized for this examination: 1. Automated exposure control 2. Adjustment of the MA and/or KV according to patient size 3. Use of iterative of reconstructive technique Comparisons: 04/16/2018 FINDINGS: Head: No focal parenchymal lesion or hemorrhage is identified. There is no midline shift or sulcal effacement. Mild patchy evidence in periventricular white matter, similar prior exam No acute vascular territory infarction is identified. Lockwood-white distinction is preserved. The ventricular system is within normal limits without compression hydrocephalus. The basal cisterns are well maintained. The visualized portions of the paranasal sinuses and mastoid air cells are well- pneumatized. Numerous lytic lesions noted throughout the skull. No acute fracture. Cervical spine: Reversal of the normal cervical lordosis which may be positional. Vertebral body heights are well-maintained. Expansile lytic lesion noted in the spinous process of C2. Additionally there is a expansile lytic lesion within the left transverse process of T1. Fracture to the cervical spine is not identified. Mild spondylotic change in the cervical spine with degenerative disc disease greatest at C6-C7. Mild bilateral facet arthropathy is also noted in the cervical spine. Visualized paraspinal soft tissues are unremarkable. IMPRESSION: 1. No acute intracranial abnormality. 2. Negative CT C-spine for acute traumatic injury. 3. Diffuse lytic metastatic disease, consistent with history of multiple myeloma Electronically signed by: Anya Cifuentes MD (04/05/2021 7:39 PM) [facility] PROCEDURE: CT CHEST WO CONTRAST Exam Date: 04/05/2021 7:[address] THORAX WO Indication: Reason: pain s/p fall / Spl. Instructions: / History: . TECHNIQUE: CT scan of the chest was performed without intravenous contrast. One or more of the following dose reduction techniques were utilized: *Automated exposure control (AEC) *Adjustment of mA and/or kV according to patient size *Use of iterative reconstruction technique *CT scan done according to ALARA, or ALARA/IMAGE GENTLY FINDINGS: There is a pleural-based soft tissue mass in the lateral aspect of the right apex measuring 6.0 x 3.7 cm with destructive changes and involvement of the right first rib. There is a 4.2 x 1.7 cm pleural-based soft tissue mass in the right apex medially consistent with metastasis. 1.4 cm expansile lytic lesion in the right lateral third rib is consistent with a metastasis. The central airways are patent. There is no focal consolidation, pleural effusion or pneumothorax. There are calcified granulomas in the lungs. Mild bibasilar subsegmental atelectasis is noted. The visualized thyroid gland is within normal limits. Borderline-enlarged mediastinal lymph nodes are suspected, though evaluation for lymphadenopathy is limited in the absence of IV contrast.. Right PICC line terminates near the cavoatrial junction. Aorta is normal in caliber with atherosclerotic calcifications. The heart is normal in size without pericardial effusion. Images of the upper abdomen demonstrate cholecystectomy clips. Degenerative changes are seen in the spine. There are mildly displaced acute fractures of the left anterolateral seventh and eighth ribs. Patchy sclerosis and lucencies in the T5 vertebral body could represent additional osseous metastasis. IMPRESSION: Acute fractures of the left anterolateral seventh and eighth ribs. Large pleural-based right apical mass with destructive changes of the right first rib. Additional smaller right apical pleural mass is consistent with metastasis. Expansile lytic lesion in the right lateral third rib is consistent with osseous metastasis. Patchy sclerosis and lucencies in the T5 vertebral body could represent additional osseous metastasis. Borderline-enlarged mediastinal lymph nodes are suspected, though evaluation for lymphadenopathy is limited in the absence of IV contrast. Electronically signed by: Nic Aquino MD (04/05/2021 8:11 PM) ANNIE PROCEDURE: KNEE BILAT 3V Exam Date: 04/05/2021 7:32 PM XR KNEE 3 VIEWS Indication: Reason: pain s/p fall / Spl. Instructions: / History: . FINDINGS/ IMPRESSION: No acute fracture or dislocation on either side. Alignment and joint spaces are maintained bilaterally. The soft tissues are within normal limits. Electronically signed by: Nic Aquino MD (04/05/2021 8:19 PM) ANNIE (DELIO GIBSON) Course & Med Decision Making: Course & Med Decision Making Pertinent Labs and Imaging studies reviewed. (See chart for details) Plain CT scans were ordered head, neck, and chest due to traumatic injury and daily use of aspirin. On reexamination patient states she is more comfortable and is resting in bed. Imaging results indicating possible metastatic disease in addition to her rib fractures were discussed with the patient, and a follow-up plan was determined. Patient will follow up with her oncologist at an existing appointment next week. Patient has a current prescription for fentanyl patches. She was instructed to continue to use those as needed for pain. She was also provided with an incentive spirometer and instructions on how to use it at home. I returned to discuss the imaging findings with her daughter as well. (DELIO GIBSON) Dragon Disclaimer: Dragwinnie Disclaimer: This electronic medical record was generated, in whole or in part, using a voice recognition dictation system. (DELIO GIBSON) Departure Departure Impression: Primary Impression: Rib fractures Qualified Codes: S22.42XA - Multiple fractures of ribs, left side, initial encounter for closed fracture Additional Impression: Lung mass Disposition: HOME / SELF CARE / HOMELESS Condition: STABLE Referrals: ANTOINE JOHNSON MD (PCP) JERMAN MATA MD Patient Instructions: Incentive Spirometer, Rib Fracture, [id number] Additional Instructions: Use the incentive spirometer 5 times per day, taking 10 breaths each time. You were provided with a copy of your chest CT report. Please take it with you to your appointment with your oncologist this coming week. Please call the office on Wednesday to confirm your appointment, or to see if they like to see you sooner. Return to the emergency department if shortness of breath or pain worsen. Attending Signature Attending Signature I have reviewed the PA/NETWORK SUPPORT's note and plan of care. I was available for consultation as needed during the patient's visit in the emergency department. I agree with the clinical impression, plan, and disposition. (MEAGHAN VERONICA DO) DELIO GIBSON Apr 05, 2021 19:16 MEAGHAN VERONICA DO Apr 05, 2021 22:14
[2021-04-05] MEDS ORDERED: ACETAMINOPHEN 325 MG TABLET. PO ONE (19:30)
--- NOTE | 2021-04-05 19:41 | RAD ---
Exam: CT head and cervical spine INDICATION: Pain, status post fall TECHNIQUE: Sequential axial images through the head and cervical spine were obtained without the admi nistration of IV contrast. Exposure: One or more of the following in the visualized dose reduction techniques were utilized for this examination: 1. Automated exposure control 2. Adjustment of the MA and/or KV according to patient size 3. Use of iterative of reconstructive technique Comparisons: 04/16/2018 FINDINGS: Head: No focal parenchymal lesion or hemorrhage is identified. There is no midline shift or sulcal effaceme nt. Mild patchy evidence in periventricular white matter, similar prior exam No acute vascular territory infarction is identified. Lockwood-white distinction is preserved. The ventricular system is within normal limits without compression hydrocephalus. The basal cisterns are well maintained. The visualized portions of the paranasal sinuses and mastoid air cells are well-pneumatized. Numerous lytic lesions noted throughout the skull. No acute fracture. Cervical spine: Reversal of the normal cervical lordosis which may be positional. Vertebral body heights are well-guera ntained. Expansile lytic lesion noted in the spinous process of C2. Additionally there is a expansile lytic le radha within the left transverse process of T1. Fracture to the cervical spine is not identified. Mild spondylotic change in the cervical spine with degenerative disc disease greatest at C6-C7. Mild bilateral facet arthropathy is also noted in the cervical spine. Visualized paraspinal soft tissues are unremarkable. IMPRESSION: 1. No acute intracranial abnormality. 2. Negative CT C-spine for acute traumatic injury. 3. Diffuse lytic metastatic disease, consistent with history of multiple myeloma Electronically signed by: Anya Cifuentes MD (04/05/2021 7:39 PM) [facility]
--- NOTE | 2021-04-05 20:13 | RAD ---
Exam Date: 04/05/2021 7:[address] THORAX WO Indication: Reason: pain s/p fall / Spl. Instructions: / History: . TECHNIQUE: CT scan of the chest was performed without intravenous contrast. One or more of the [facility] dose reduction techniques were utilized: *Automated exposure control (AEC) *Adjustment of mA and/or kV according to patient size *Use of iterative reconstruction technique *CT scan done according to ALARA, or ALARA/IMAGE GENTLY FINDINGS: There is a pleural-based soft tissue mass in the lateral aspect of the right apex measuring 6.0 x 3.7 cm with destructive changes and involvement of the right first rib. There is a 4.2 x 1.7 cm pleural -based soft tissue mass in the right apex medially consistent with metastasis. 1.4 cm expansile lytic lesion in the right lateral third rib is consistent with a metastasis. The central airways are patent. There is no focal consolidation, pleural effusion or pneumothorax. There are calcified granulomas in the lungs. Mild bibasilar subsegmental atelectasis is noted. The visualized thyroid gland is within normal limits. Borderline-enlarged mediastinal lymph nodes are suspected, though evaluation for lymphadenopathy is l imited in the absence of IV contrast.. Right PICC line terminates near the cavoatrial junction. Aorta is normal in caliber with atherosclerotic calcifications. The heart is normal in size without pericardial effusion. Images of the upper abdomen demonstrate cholecystectomy clips. Degenerative changes are seen in the spine. There are mildly displaced acute fractures of the left anterolateral seventh and eighth ribs. Patchy sclerosis and lucencies in the T5 vertebral body could represent additional osseous metastasis. IMPRESSION: Acute fractures of the left anterolateral seventh and eighth ribs. Large pleural-based right apical mass with destructive changes of the right first rib. Additional sm aller right apical pleural mass is consistent with metastasis. Expansile lytic lesion in the right lateral third rib is consistent with osseous metastasis. Patchy sclerosis and lucencies in the T5 vertebral body could represent additional osseous metastasis. Borderline-enlarged mediastinal lymph nodes are suspected, though evaluation for lymphadenopathy is l imited in the absence of IV contrast. Electronically signed by: Nic Aquino MD (04/05/2021 8:11 PM) [facility]
--- NOTE | 2021-04-05 20:22 | RAD ---
Exam Date: 04/05/2021 7:32 PM XR KNEE 3 VIEWS Indication: Reason: pain s/p fall / Spl. Instructions: / History: . FINDINGS/ IMPRESSION: No acute fracture or dislocation on either side. Alignment and joint spaces are maintained bilateral ly. The soft tissues are within normal limits. Electronically signed by: Nic Aquino MD (04/05/2021 8:19 PM) ANNIE
== END 2021-04-05 21:22 | disposition home or self-care (01) ==
LOC: ER 18:24
DX: S22.42XA Multiple fractures of ribs, left side, initial encounter for closed fracture (principal); R91.8 Other nonspecific abnormal finding of lung field; S80.02XA Contusion of left knee, initial encounter; S80.01XA Contusion of right knee, initial encounter; G89.29 Other chronic pain; Z88.5 Allergy status to narcotic agent; Z88.6 Allergy status to analgesic agent; W18.09XA Striking against other object with subsequent fall, initial encounter; Y93.01 Activity, walking, marching and hiking; Y92.481 Parking lot as the place of occurrence of the external cause; Y99.8 Other external cause status
CPT/HCPCS: 70450; 71250; 72125; 99285; 73562-50

== ENCOUNTER 2021-04-18 08:40 | Outpatient (CLI) | payer MEDICARE ==
[2021-04-18] VITALS (14 sets, daily range): BP systolic 100–124; BP diastolic 47–60
[~2021-04-18] VITALS: Ht 152.4 cm; Wt 71.8 kg
[2021-04-18] MEDS ORDERED: MIDAZOLAM HCL/PF 2 MG/2 ML VIAL. ONE (09:07)
[2021-04-18] MEDS ORDERED: fentaNYL PF VIAL 100 MCG/2 ML VIAL ONE (09:07)
[2021-04-18] MEDS ORDERED: DEXA4TAB PO (09:08)
[2021-04-18] MEDS ORDERED: LIDOCAINE WITH 8.4% SOD BICARB 3 ML DISP.SYRIN. ONE (09:22)
[2021-04-18 09:46] LABS: BASO % 0 % (0-3); EOS # 0.1 x10^3/uL (0.0-0.7); EOS % 1 % (0-3); HEMATOCRIT 28.3 % (36.0-47.0); HEMOGLOBIN 9.5 g/dL (12.0-15.5); LYMPH # 0.4 x10^3/uL (1.0-4.8); LYMPH % 10 % (24-48); MEAN CORPUSCULAR HEMOGLOBIN 36 pg (25-35); MEAN CORPUSCULAR HGB CONC 34 g/dL (31-37); MEAN CORPUSCULAR VOLUME 106 fL (79-100); MONO # 0.6 x10^3/uL (0.0-1.1); MONO % 16 % (0-9); NEUT % 73 % (31-73); PLATELET COUNT 99 x10^3/uL (140-400); RED BLOOD COUNT 2.66 x10^6/uL (3.50-5.40); RED CELL DISTRIBUTION WIDTH 13.9 % (11.5-14.5); WHITE BLOOD COUNT 4.1 x10^3/uL (4.0-11.0)
[2021-04-18 10:02] LABS: PROTHROMBIN TIME PATIENT 13.1 SEC (11.7-14.0)
[2021-04-18] MEDS ORDERED: fentaNYL PF VIAL 100 MCG/2 ML VIAL IV ONE (10:30)
[2021-04-18] MEDS ORDERED: LIDOCAINE WITH 8.4% SOD BICARB 3 ML DISP.SYRIN. IJ ONE (10:30)
[2021-04-18] MEDS ORDERED: MIDAZOLAM HCL/PF 2 MG/2 ML VIAL. IV ONE (10:30)
--- NOTE | 2021-04-18 11:04 | PDOC ---
MODERATE SEDATION ASSESSMENT RISKS/ALTERNATIVES Risks/Alternatives Risks and alternatives of this type of sedation and procedure discussed with: RISK/ALTERNATIVES: Patient H & P ON CHART H & P H & P on chart and reviewed for co-morbid conditions and appropriate labs. H&P ON CHART: Yes STATUS PREG STATUS ASSESSED: Yes MEDS/ALLERGIES REVIEWED Meds/Allergies Reviewed Medications and Allergies including time and route of recently administered narcotics and sedatives. MEDS/ALLERGIES REVIEWED: Yes ASA RATING ASA RATING: II AIRWAY ASSESSMENT Airway Assessment Airway patency, oral function limitations, presence of caps, crowns, dentures, partials, and ability to extend neck assessed. AIRWAY ASSESSMENT: Yes MALLAMPATI SCORE MALLAMPATI SCORE: II PRE-SEDATION ASSESSMENT PRE-SEDATION ASSESSMENT: Yes SAHRA ANDINO MD Apr 18, 2021 11:04
--- NOTE | 2021-04-18 11:05 | PDOC ---
BRIEF OPERATIVE NOTE Pre-Op Diagnosis right lung mass Post-Op Diagnosis same Procedure Performed CT right lung biopsy Surgeon Peter EBL minimal Anesthesia Type: Conscious Sedation Specimens Obtained 4 x [address] right upper lobe lung mass SAHRA ANDINO MD Apr 18, 2021 11:05
--- NOTE | 2021-04-18 13:35 | NUR ---
Discharge Note: JUAN F GOLD Discharge instructions and discharge home medications reviewed with Patient and a copy given. All questions have been answered and understanding verbalized. The following instructions and handouts were given: Lung Biopsy and Moderate sedation Discontinued lines and drains: Right chest port a cath deaccessed needle tip intact, and bandage applied. Patient discharged to home with daughter via personal vehicle.
--- NOTE | 2021-04-18 15:26 | RAD ---
Procedure: CT-guided right apical lung biopsy Clinical Indication: Adult female with right apical pleural parenchymal lung mass Sedation: Conscious sedation using a combination of Versed and fentanyl was provided for 20 minutes, including continuous monitoring of the patients heart rate, rhythm, blood pressure, oxygen saturation and level of arousability by a trained independent observer. CT Exposure: One or more of the following individualized dose reduction techniques were utilized for this examination: 1. Automated exposure control 2. Adjustment of the mA and/or kV according to pete ent size 3. Use of iterative reconstruction technique Contrast: None Sterility: All elements of maximal sterile barrier technique including the use of a cap, mask, steril e gown, sterile gloves, large sterile sheet, appropriate hand hygiene, and 2% chlorhexidine for cutan eous antisepsis (or acceptable alternative antiseptic per current guidelines) were followed for this procedure. Consent: The procedure was explained in its entirety to the patient or the patients designated repres entative by a member of the treatment team, including a discussion of the risks, benefits and commonl y accepted alternatives to the procedure, as well as the expected consequences of not performing the procedure. Discussion of the risks included, but was not limited to, those that are most frequent an d those that are rare but possibly severe or life-threatening, as well as the possibility of unforese en complications. Time Out: Immediately prior to initiation a procedural pause was conducted in the presence of the mem bers of the treatment team to verify correct patient identity, correct procedure, correct side if steven licable, correct patient position, availability of specialized equipment, review of patients allergie s, and assessment of current level of consciousness and arousability. Technique and Findings: Following informed consent, the patient was prepped and draped in usual steri le fashion. Preliminary CT scan of the area of interest was performed. 1 percent lidocaine was used t o achieve local anesthesia over the area of interest. A small dermatotomy was made. Under periodic CT surveillance, a 17-gauge needle guide was advanced towards the target lesion and 4 separate 18-gauge core biopsy specimens were obtained and preserved in formalin. A blood patch was applied as the need le guide was removed and hemostasis was achieved with manual compression. Complications: No immediate Impression: 1. CT-guided right apical lung biopsy as described. Electronically signed by: Zach Green MD (04/18/2021 3:24 PM) [id number]
== END 2021-04-18 13:38 | disposition home or self-care (01) ==
LOC: INTRAD 08:40
PROVIDERS: ATTEND Internal Medicine Hematology & Oncology
DX: R91.8 Other nonspecific abnormal finding of lung field (principal); F41.9 Anxiety disorder, unspecified; F32.9 Major depressive disorder, single episode, unspecified; Z90.49 Acquired absence of other specified parts of digestive tract; Z98.890 Other specified postprocedural states; Z79.899 Other long term (current) drug therapy; Z79.82 Long term (current) use of aspirin; Z88.5 Allergy status to narcotic agent; Z88.8 Allergy status to other drugs, medicaments and biological substances; Z82.49 Family history of ischemic heart disease and other diseases of the circulatory system
CPT/HCPCS: 32408; 36415; 71045; 85025; 85610; 99152; J2250; J3010; J3490

== ENCOUNTER → 2021-05-14 | Outpatient (CLI) | payer MEDICARE ==
[2021-04-18 12:55] VITALS: BP 122/60
[~2021-05-14] MED LIST changes: +CYCL10TA19 PO; -CYCL10TA2 PO; +DEXA4TAB PO
--- NOTE | 2021-05-15 03:36 | RAD ---
US EXTREM NONVASCULAR LTD RIGHT History:Reason: ADENOPATHY / Spl. Instructions: / History: Comparison: None Technique: Sonographic examination of the right supraclavicular region Findings: Several rounded hypoechoic lymph nodes within the right supraclavicular space largest measures 1.9 x 1.0 cm. Impression: 1. Enlarged rounded hypoechoic right supraclavicular lymph nodes, concerning for malignancy. Recomme nd biopsy if clinically indicated. Electronically signed by: Elliott Paige DO (05/15/2021 3:34 AM) [facility]
== END ==
LOC: US 16:15
PROVIDERS: ATTEND Registered Nurse
DX: C90.00 Multiple myeloma not having achieved remission (principal); R59.9 Enlarged lymph nodes, unspecified; M25.511 Pain in right shoulder; G89.29 Other chronic pain
CPT/HCPCS: 76882

== ENCOUNTER → 2021-05-28 | Outpatient (CLI) | payer MEDICARE ==
[2021-04-18 12:55] VITALS: BP 122/60
[~2021-05-28] MED LIST changes: +GADOTERATE 7.5 MMOL/15ML VIAL. IVP ONE
--- NOTE | 2021-05-29 09:42 | KCIC ---
EXAMINATION: MRI PELVIS WITH AND WITHOUT IV CONTRAST CLINICAL HISTORY: DYSURIA, MULTIPLE MYELOMA, LYTIC BONE LESIONS ON XRAY. New right groin pain. TECHNIQUE: Multiplanar multisequential images obtained through the pelvis with and without intravenou s contrast. COMPARISON: Bone survey 08/10/2019, MRI left hip 01/23/2019 FINDINGS: Hip joints: No fractures. No avascular necrosis. No joint effusion. No synovitis. Large field of view images limits evaluation of labrum and cartilage. Sacroiliac joints: Within normal limits. Pubic symphysis: Within normal limits. Tendons: Within normal limits including the iliopsoas, hamstring, gluteal and rectus femoris tendons. Muscles: Within normal limits. Bones/Marrow: Multiple osteolytic lesions throughout the pelvis, sacrum, and proximal femurs, many of which are mildly expansile. The majority of the lesions demonstrate hypointense T1 and intermediate T2 signal with modest contrast enhancement. Associated cortical destruction the 3.7 x 2.7 x 2.4 cm le radha in the right superior pubic ramus and likely with the 2.1 x 2.1 x 2.2 cm (AP x TRV x CC) lesion in the posterior right iliac crest, suboptimally evaluated. 3.7 x 2.4 x 3.1 cm (AP x TRV x CC) lesion in the posterior left ilium abutting the subcortical bone plate at the left sacroiliac joint demonst rates central hyperintense T2 signal and rim enhancement, possibly centrally necrotic. No evidence of acute fracture. Decreased intervertebral disc height at L3-4, incompletely evaluated. Other: Several small myometrial T2 hyperintense foci in the lower uterine segment, possibly fibroids. IMPRESSION: Multiple osteolytic lesions as described, consistent with history of multiple myeloma. Associated cor tical destruction with the 3.7 cm lesion in the right superior pubic ramus and likely with the 2.2 cm lesion in the posterior right iliac crest, suboptimally evaluated. CT pelvis could be considered for further characterization of osseous destruction if indicated. Electronically signed by: Francis Evangelista DO (05/29/2021 9:40 AM) [id number]
== END ==
LOC: KCIC MRI 13:22
PROVIDERS: ATTEND Registered Nurse
DX: C90.00 Multiple myeloma not having achieved remission (principal); M89.58 Osteolysis, other site; R10.31 Right lower quadrant pain
CPT/HCPCS: 72197; 82565; A9575

== ENCOUNTER → 2021-08-13 | Outpatient (CLI) | payer MEDICARE ==
[2021-04-18 12:55] VITALS: BP 122/60
[~2021-08-13] MED LIST changes: -GADOTERATE 7.5 MMOL/15ML VIAL. IVP ONE
--- NOTE | 2021-08-13 14:45 | RAD ---
EXAM: Neck sonogram. HISTORY: Multiple myeloma. Leukemia. Lymphadenopathy. TECHNIQUE: Sonographic imaging of the base of the right neck at the site of concern was performed. COMPARISON: 05/14/2021. FINDINGS: There are multiple enlarged supraclavicular and inferior cervical chain lymph nodes, the la rgest of which measure 2.0 x 1.8 x 1.7 cm and 2.0 x 2.0 x 1.2 cm and 1.8 x 1.8 x 1.6 cm. These demons trate abnormal thickened cortices and predominantly absent fatty yo. IMPRESSION: Lymphadenopathy involving the base of the right neck. The size of the dominant lymph node s is stable to minimally increased compared to the prior exam, allowing for differences in measuremen t technique. Electronically signed by: Payton Montez MD (08/13/2021 2:43 PM) [id number]
== END ==
LOC: US 13:47
PROVIDERS: ATTEND Registered Nurse
DX: R59.0 Localized enlarged lymph nodes (principal); C90.00 Multiple myeloma not having achieved remission; C91.10 Chronic lymphocytic leukemia of B-cell type not having achieved remission
CPT/HCPCS: 76536